=== PATIENT | male | born 1950 | race Caucasian/White ===

== ENCOUNTER 2016-11-03 13:33 | Inpatient (IN) | payer MEDICARE ==
[2016-11-03] MEDS ORDERED: NITROGLYCERIN SL TABS 0.4 MG TAB SUBLINGUAL STA (14:00)
--- NOTE | 2016-11-03 14:05 | ED ---
General Adult HPI - General Chief complaint: Chest Pain Stated complaint: Chest Pain Time Seen by Provider: 11/03/16 13:46 Source: patient, RN notes reviewed, old records reviewed Mode of arrival: ambulatory Limitations: no limitations - History of Present Illness Initial comments: Chief complaint and history of present illness a 66-year-old male who was sent here from the business continuity analyst's office. Patient reports for the past month he isn' t having shortness of breath and chest discomfort with exertion. Patient's last stent was placed July of last year. Denies any sweats. - Related Data Home Medications Medication Instructions Recorded Confirmed Insulin Aspart [NovoLOG] See Protocol SQ AC-TID 02/24/14 08/12/16 Omeprazole 20 mg PO DAILY 01/16/16 08/11/16 Insulin Glargine [Lantus] 90 unit SQ HS 01/17/16 08/12/16 Doxazosin Mesylate [Cardura] 8 mg PO BID 11/03/16 11/03/16 Previous Rx's Medication Instructions Recorded Aspirin EC [Ecotrin Low Dose] 81 mg PO DAILY #30 tablet. 01/18/16 Atorvastatin [Lipitor] 80 mg PO DAILY #30 tab 01/18/16 Clopidogrel [Plavix] 75 mg PO DAILY #90 tab 03/21/16 metFORMIN HCL [Glucophage] 500 mg PO BID #0 06/10/16 Allergies Allergy/AdvReac Type Severity Reaction Status Date / Time No Known Allergies Allergy Verified 11/03/16 14:21 Review of Systems ROS Statement: Those systems with pertinent positive or pertinent negative responses have been documented in the HPI. Review of systems. No headache or visual acuity changes. No stiff neck no neck pain at this time. He has chronic chest pressure with even mild exertion as well as shortness of breath. Radiation across the chest but not down the arms and the back. No GI/ problems or complications no complaint of any neuro deficits. All systems were otherwise reviewed. Past medical problems significant for melanoma on his face removed approximately one month ago. Also angina, COPD, insulin-dependent diabetes mellitus, GERD, hyperlipidemia, hypertension, OA, BPH, previous syncopal episodes. Psoas was stomach ulcers. Surgeries include cervical and low back. Cholecystectomy, heart catheterization with 3 stents. The patient's ALLERGIES none. Quit smoking 25 years ago drinks alcohol rarely socially. ROS Other: All systems not noted in ROS Statement are negative. Past Medical History Past Medical History: Coronary Artery Disease (CAD), Cancer, Chest Pain / Angina , COPD, Diabetes Mellitus, GERD/Reflux, Hyperlipidemia, Hypertension, Osteoarthritis (OA), Prostate Disorder, Syncope Additional Past Medical History / Comment(s): BPH, STOMACH ULCER, CHRONS, CHRONIC BACK PAIN, CANCER-SKIN- MELANOMA, numbness/tingling bilateral hands and legs at times, seasonal sinus problems, migraines History of Any Multi-Drug Resistant Organisms: None Reported Past Surgical History: Back Surgery, Cholecystectomy, Heart Catheterization, Heart Catheterization With Stent, Orthopedic Surgery Additional Past Surgical History / Comment(s): 08/12/16 PTCA with stent to proximal RCA. Other surgical hx: 03/20/16 PTCA with stent LCX, 2010 cardiac cath tx medically, back surgery x6 with metal rods; cervical surgery with metal plate, COLONOSCOPY, EGD, melanoma removals Past Anesthesia/Blood Transfusion Reactions: No Reported Reaction Date of Last Stent Placement:: 03/20/16 Past Psychological History: No Psychological Hx Reported Additional Psychological History / Comment(s): Pt resides with his spouse. He is independent. Smoking Status: Former smoker Past Alcohol Use History: Occasional Additional Past Alcohol Use History / Comment(s): 2-3 BEERS MONTHLY. Pt started smoking at age 14-15 yrs and got up to being a 2 ppd smoker. He quit smoking in 1990 Past Drug Use History: None Reported - Past Family History Father Family Medical History: Cancer, Myocardial Infarction ([place]) Additional Family Medical History / Comment(s): LEUKEMIA- of at the age of 32 yrs. Mother Family Medical History: Cancer Additional Family Medical History / Comment(s): BREAST CA,LiVER CA BRAIN CA, DEMENTIA. She in her 70's. General Exam - General Exam Comments Initial Comments: General: The patient is awake and alert, complains of one month long period of shortness of breath and chest heaviness with exertion. Vital signs show temperature 98.0 pulse 93 respiratory rate 26 pulse ox 97% room air blood pressure 176/77. Eye: Pupils are equal, round and reactive to light, extra-ocular movements are intact ; there is normal conjunctiva bilaterally. No signs of icterus. Ears, nose, mouth and throat: There are moist mucous membranes and no oral lesions. Healing scar below the left eye, recent removal of melanoma. Neck: The neck is supple, there is no tenderness . Cardiovascular: There is a regular rate and rhythm. No murmur, rub or gallop is appreciated. Respiratory: Lungs are clear to auscultation, respirations are non-labored, breath sounds are equal. No wheezes, stridor, rales, or rhonchi. Patient complains of shortness of breath with mild exertion. Gastrointestinal: Soft, non-distended, non-tender abdomen without masses or organomegaly noted. There is no rebound or guarding present. No CVA tenderness. Bowel sounds are unremarkable. Back: There is no tenderness to palpation in the midline. There is no obvious deformity. No rashes noted. Well-healed surgical scars were patient had low back surgery. Musculoskeletal: Normal ROM, no tenderness, There is no pedal edema. There is no calf tenderness or swelling. Sensation intact. Pulses equal bilaterally 2+. Neurological: No neuro deficits. Patient alert and oriented. Skin: Skin is warm and dry and no rashes or lesions are noted. Limitations: no limitations Course Vital Signs 11/03/16 11/03/16 11/03/16 13:35 14:11 14:17 Temperature 98.0 F Pulse Rate 93 81 92 Respiratory 26 H 24 Rate Blood Pressure 176/77 162/83 129/68 O2 Sat by Pulse 97 99 98 Oximetry Medical Decision Making - Medical Decision Making Medical decision-making the patient's white count 6.7 hemoglobin 13.8 hematocrit of 42, INR 1.0, potassium 4.6, BUN 14 creatinine 0.9 and GFR greater than 60. Glucose 197. D-dimer 0.55, BNP only 192, CK 289 troponin less than 0.012 with an MB fraction 5.8. Chest x-ray was done and reviewed by radiologist his impression is the lungs are clear. Pleural spaces are clear. Heart size upper limits of normal. Note made of an azygous lobe and fissure. Impression; borderline cardiomegaly. As read by Dr. Ryder Case discussed with Dr. Torres ,patient will be admitted to his service with consultation from cardiology. - Lab Data Result diagrams: 11/03/16 13:50 11/03/16 13:50 Lab Results 11/03/16 11/03/16 11/03/16 Range/Units 13:50 13:50 13:50 WBC 6.7 (3.8-10.6) k/uL RBC 5.11 (4.30-5.90) m/uL Hgb 13.8 (13.0-17.5) gm/dL Hct 42.5 (39.0-53.0) % MCV 83.1 (80.0-100.0) fL MCH 27.0 (25.0-35.0) pg MCHC 32.5 (31.0-37.0) g/dL RDW 13.7 (11.5-15.5) % Plt Count 242 (150-450) k/uL Neutrophils % 61 % Lymphocytes % 28 % Monocytes % 5 % Eosinophils % 3 % Basophils % 1 % Neutrophils # 4.1 (1.3-7.7) k/uL Lymphocytes # 1.9 (1.0-4.8) k/uL Monocytes # 0.4 (0-1.0) k/uL Eosinophils # 0.2 (0-0.7) k/uL Basophils # 0.0 (0-0.2) k/uL PT (9.0-12.0) sec INR (<1.1) APTT (22.0-30.0) sec D-Dimer (<0.60) mg/L FEU Sodium 138 (137-145) mmol/L Potassium 4.6 (3.5-5.1) mmol/L Chloride 103 (98-107) mmol/L Carbon Dioxide 21 L (22-30) mmol/L Anion Gap 14 mmol/L BUN 14 (9-20) mg/dL Creatinine 0.99 (0.66-1.25) mg/dL Est GFR (MDRD) Af Amer >60 (>60 ml/min/1.73 sqM) Est GFR (MDRD) Non-Af >60 (>60 ml/min/1.73 sqM) Glucose 197 H (74-99) mg/dL POC Glucose (mg/dL) (75-99) mg/dL POC Glu Manufacturing Finance Manager ID Calcium 9.8 (8.4-10.2) mg/dL Magnesium 1.6 (1.6-2.3) mg/dL Total Bilirubin 0.6 (0.2-1.3) mg/dL AST 28 (17-59) U/L ALT 44 (21-72) U/L Alkaline Phosphatase 44 (38-126) U/L Total Creatine Kinase 289 H (55-170) U/L CK-MB (CK-2) 5.8 H* (0.0-2.4) ng/mL CK-MB (CK-2) Rel Index 2.0 Troponin I <0.012 (0.000-0.034) ng/mL NT-Pro-B Natriuret Pep pg/mL Total Protein 7.3 (6.3-8.2) g/dL Albumin 4.3 (3.5-5.0) g/dL 11/03/16 11/03/16 11/03/16 Range/Units 13:50 13:50 14:49 WBC (3.8-10.6) k/uL RBC (4.30-5.90) m/uL Hgb (13.0-17.5) gm/dL Hct (39.0-53.0) % MCV (80.0-100.0) fL MCH (25.0-35.0) pg MCHC (31.0-37.0) g/dL RDW (11.5-15.5) % Plt Count (150-450) k/uL Neutrophils % % Lymphocytes % % Monocytes % % Eosinophils % % Basophils % % Neutrophils # (1.3-7.7) k/uL Lymphocytes # (1.0-4.8) k/uL Monocytes # (0-1.0) k/uL Eosinophils # (0-0.7) k/uL Basophils # (0-0.2) k/uL PT 10.4 (9.0-12.0) sec INR 1.0 (<1.1) APTT 24.0 (22.0-30.0) sec D-Dimer 0.55 (<0.60) mg/L FEU Sodium (137-145) mmol/L Potassium (3.5-5.1) mmol/L Chloride (98-107) mmol/L Carbon Dioxide (22-30) mmol/L Anion Gap mmol/L BUN (9-20) mg/dL Creatinine (0.66-1.25) mg/dL Est GFR (MDRD) Af Amer (>60 ml/min/1.73 sqM) Est GFR (MDRD) Non-Af (>60 ml/min/1.73 sqM) Glucose (74-99) mg/dL POC Glucose (mg/dL) 156 H (75-99) mg/dL POC Glu Manufacturing Finance Manager ID Calcium (8.4-10.2) mg/dL Magnesium (1.6-2.3) mg/dL Total Bilirubin (0.2-1.3) mg/dL AST (17-59) U/L ALT (21-72) U/L Alkaline Phosphatase (38-126) U/L Total Creatine Kinase (55-170) U/L CK-MB (CK-2) (0.0-2.4) ng/mL CK-MB (CK-2) Rel Index Troponin I (0.000-0.034) ng/mL NT-Pro-B Natriuret Pep 192 pg/mL Total Protein (6.3-8.2) g/dL Albumin (3.5-5.0) g/dL Disposition Clinical Impression: Unstable angina Disposition: ADMITTED IP TO THIS HOSP Condition: Serious
[2016-11-03 14:31] LABS: Basophils % (A) 1 %; CH 27.7; CHCM 33.5; Eosinophils # (A) 0.2 k/uL (0-0.7); Eosinophils % (A) 3 %; HCT 42.5 % (39.0-53.0); HDW 2.44; HGB 13.8 gm/dL (13.0-17.5); Luc # (Auto) 0.18; Luc % (Auto) 3; Lymphocytes # (A) 1.9 k/uL (1.0-4.8); Lymphocytes % (A) 28 %; MCHC 32.5 g/dL (31.0-37.0); MCV 83.1 fL (80.0-100.0); Mean Platelet Volume 7.1; Monocytes # (A) 0.4 k/uL (0-1.0); Monocytes % (A) 5 %; Neutrophils # (A) 4.1 k/uL (1.3-7.7); Neutrophils % (A) 61 %; RBC 5.11 m/uL (4.30-5.90); RDW 13.7 % (11.5-15.5); WBC 6.7 k/uL (3.8-10.6); WBC (Perox) 6.77
[2016-11-03 14:33] LABS: ALT 44 U/L (21-72); AST 28 U/L (17-59); Alkaline Phosphatase 44 U/L (38-126); Anion Gap 14 mmol/L; Blood Urea Nitrogen 14 mg/dL (9-20); Calcium 9.8 mg/dL (8.4-10.2); Carbon Dioxide 21 mmol/L (22-30); Chloride 103 mmol/L (98-107); Glucose 197 mg/dL (74-99); Magnesium 1.6 mg/dL (1.6-2.3); Non-African American GFR(MDRD) >60 (>60 ml/min/1.73 sqM); Potassium 4.6 mmol/L (3.5-5.1); Sodium 138 mmol/L (137-145); Total Bilirubin 0.6 mg/dL (0.2-1.3); Total Protein 7.3 g/dL (6.3-8.2)
[2016-11-03 14:39] LABS: Prothrombin Time 10.4 sec (9.0-12.0)
[2016-11-03 14:42] LABS: Creatine Kinase 289 U/L (55-170)
--- NOTE | 2016-11-03 14:43 | XR ---
EXAMINATION TYPE: XR chest 2V DATE OF EXAM: 11/03/2016 2:39 PM HISTORY: Chest pain and shortness of breath. REFERENCE: Previous study dated 01/17/2016. FINDINGS: The lungs are clear. Pleural spaces are clear. Heart size is upper limits of normal. Note i s made of an azygos lobe and fissure. IMPRESSION: BORDERLINE CARDIOMEGALY.
[2016-11-03 14:53] LABS: Glucose,Whole Blood 156 mg/dL (75-99)
[2016-11-03 14:54] LABS: Troponin I <0.012 ng/mL (0.000-0.034)
[2016-11-03 15:00] LABS: Creatine Kinase MB 5.8 ng/mL (0.0-2.4)
[2016-11-03] MEDS ORDERED: NALOXONE 0.4 MG/ML 1 ML VIAL IV PRN (15:06)
[2016-11-03] MEDS ORDERED: ACETAMINOPHEN TAB 325 MG TAB PO PRN (15:06)
[2016-11-03] MEDS ORDERED: HEPARIN SODIUM,PORCINE/D5W PMX 25,000 UNIT in DEXTROSE/WATER 1 500ML.BAG IV ONE (15:13)
[2016-11-03] MEDS ORDERED: SODIUM CHLORIDE 0.9% 1,000 ML IV SCH (15:15)
[2016-11-03] MEDS: SODIUM CHLORIDE 0.9% 1,000 ML IV SCH (15:31)
[2016-11-03] MEDS ORDERED: HEPARIN SODIUM,PORCINE/D5W PMX 25,000 UNIT in DEXTROSE/WATER 1 500ML.BAG IV SCH (15:45)
[2016-11-03] MEDS: HEPARIN SODIUM,PORCINE 5,000 UNIT/ML 1 ML VIAL IV STA ×2 (16:00→22:07)
[2016-11-03] MEDS: HEPARIN SODIUM,PORCINE/D5W PMX 25,000 UNIT in DEXTROSE/WATER 1 500ML.BAG IV SCH (16:02)
--- NOTE | 2016-11-03 16:41 | CONS ---
DATE OF CONSULTATION: CHIEF COMPLAINT: Shortness of breath and chest discomfort. Mr. Zuniga is a 65-year-old gentleman with history of known CAD, status post prior stenting of LAD, who comes to [facility] Emergency Room complaining of progressively worsening shortness of breath and episodes of chest pain over the last few weeks. Patient underwent cardiac catheterization and angioplasty of [place] right coronary artery in July of 2016. Prior to that he had an LAD stent. He complains of feeling progressively short of breath. Also has vague atypical chest pain. EKG does not reveal any changes. Troponin is negative. Hemoglobin is normal at 13.8. Past medical history is significant for: 1. CAD, status post multi-vessel angioplasty. 2. Hypertension. 3. Diabetes. 4. Dyslipidemia. Medications include: 1. Glucophage 500 b.i.d. 2. Omeprazole 20 b.i.d. 3. Insulin. 4. Cardura. 5. Plavix. 6. Lipitor. 7. Aspirin. ALLERGIES: NO KNOWN DRUG ALLERGIES. FAMILY HISTORY: Negative for premature coronary artery disease. SOCIAL HISTORY: Negative for current smoking, EtOH abuse or drug abuse. REVIEW OF SYSTEMS: HEENT: Unremarkable. CARDIAC: As described above. RESPIRATORY: As described above. GI: Negative. GENITOURINARY: Negative. MUSCULOSKELETAL: Negative. ENDOCRINE: Negative. DERMATOLOGY: Negative. CONSTITUTIONAL: Negative. PSYCHOSOCIAL: Negative. ONCOLOGICAL: Negative. Rest of the system review is not relevant. On exam, comfortable at rest. Vital signs are stable. There is jugular venous distention. Carotid upstroke is normal. There is no bruit. Chest exam reveals good air entry bilaterally. Heart exam reveals first and second heart sounds. No gallop. No murmur. No rub. Abdomen is soft, nontender. Examination of extremities did not reveal edema. Peripheral pulses are felt. FOOD TRAY ASSEMBLER exam did not reveal focal neurological deficits. Labs show that the D-dimer is normal. First set of troponin is negative. EKG is negative. ASSESSMENT: Unstable angina in a patient with known coronary artery disease, status post prior angioplasty. I reviewed his old records, talked to Dr. Santoyo. Patient states that he felt better following his previous angioplasty but again started feeling more and more short of breath. I am going to schedule him for a cardiac cath tomorrow, and if that looks okay, he can be discharged home and have outpatient followup through Dr. Santoyo. Patient had a D-dimer that is within normal limits.
[2016-11-03 17:43] LABS: Glucose,Whole Blood 138 mg/dL (75-99)
[2016-11-03] MEDS: INSULIN LISPRO (humaLOG) 300 UNIT/3 ML VIAL SQ SCH ×2 (17:45→21:39)
[2016-11-03] MEDS: FAMOTIDINE 20 MG TAB PO SCH (20:41)
[2016-11-03] MEDS: DOXAZOSIN 4 MG TAB PO SCH (20:41)
[2016-11-03 20:58] LABS: Creatine Kinase 240 U/L (55-170)
[2016-11-03 20:58] LABS: Glucose,Whole Blood 183 mg/dL (75-99)
[2016-11-03 21:11] LABS: Troponin I <0.012 ng/mL (0.000-0.034)
[2016-11-03 21:43] LABS: Creatine Kinase MB 5.3 ng/mL (0.0-2.4)
[2016-11-04 02:08] LABS: Creatine Kinase 222 U/L (55-170)
[2016-11-04 02:21] LABS: Troponin I <0.012 ng/mL (0.000-0.034)
[2016-11-04 02:25] LABS: Creatine Kinase MB 5.1 ng/mL (0.0-2.4)
[2016-11-04 06:17] LABS: Glucose,Whole Blood 169 mg/dL (75-99)
[2016-11-04] MEDS: INSULIN LISPRO (humaLOG) 300 UNIT/3 ML VIAL SQ SCH ×4 (06:41→21:51)
[2016-11-04] MEDS: DOXAZOSIN 4 MG TAB PO SCH ×2 (06:43→21:51)
[2016-11-04] MEDS: CLOPIDOGREL 75 MG TAB PO SCH (06:43)
[2016-11-04] MEDS: ASPIRIN 81 MG CHEW PO SCH ×2 (06:43→19:38)
[2016-11-04] MEDS: FAMOTIDINE 20 MG TAB PO SCH ×2 (06:43→21:51)
[2016-11-04] MEDS: ATORVASTATIN 80 MG TAB PO SCH (06:43)
[2016-11-04] MEDS ORDERED: ALPRAZolam 0.5 MG TAB PO PRN (07:53)
[2016-11-04] MEDS ORDERED: SODIUM CHLORIDE 0.9% 1,000 ML in EMPTY BAG 1 BAG IV ONE (07:53)
[2016-11-04] MEDS ORDERED: ALPRAZolam 0.25 MG TAB PO PRN (07:53)
[2016-11-04] MEDS ORDERED: NITROGLYCERIN SL TABS 0.4 MG TAB SUBLINGUAL PRN (07:53)
[2016-11-04] MEDS ORDERED: ATORVASTATIN 80 MG TAB PO STA (07:53)
[2016-11-04] MEDS ORDERED: ASPIRIN 325 MG TAB PO STA (07:53)
[2016-11-04 11:54] LABS: Glucose,Whole Blood 159 mg/dL (75-99)
[2016-11-04 12:43] LABS: Hemoglobin A1C 7.9 % (4.2-6.1)
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
[2016-11-04] MEDS: HEPARIN SODIUM,PORCINE/D5W PMX 25,000 UNIT in DEXTROSE/WATER 1 500ML.BAG IV SCH (16:08)
[2016-11-04 16:56] LABS: Glucose,Whole Blood 235 mg/dL (75-99)
[2016-11-04] MEDS ORDERED: LORATADINE 10 MG TAB PO PRN (19:56)
[2016-11-04 20:56] LABS: Glucose,Whole Blood 232 mg/dL (75-99)
[2016-11-04] MEDS ORDERED: OSELTAMIVIR 75 MG CAP PO SCH (21:00)
[2016-11-04] MEDS: SODIUM CHLORIDE 0.9% 1,000 ML IV SCH (21:51)
[2016-11-04 23:48] VITALS: RESP 16
[2016-11-05 05:56] LABS: Glucose,Whole Blood 223 mg/dL (75-99)
[2016-11-05 06:36] LABS: Basophils # (A) 0.1 k/uL (0-0.2); Basophils % (A) 1 %; CH 27.4; CHCM 32.3; Eosinophils # (A) 0.2 k/uL (0-0.7); Eosinophils % (A) 3 %; HCT 38.9 % (39.0-53.0); HDW 2.37; HGB 12.5 gm/dL (13.0-17.5); Luc # (Auto) 0.14; Luc % (Auto) 2; Lymphocytes # (A) 2.3 k/uL (1.0-4.8); Lymphocytes % (A) 39 %; MCH 27.3 pg (25.0-35.0); MCV 85.1 fL (80.0-100.0); Mean Platelet Volume 6.5; Monocytes # (A) 0.3 k/uL (0-1.0); Monocytes % (A) 6 %; Neutrophils # (A) 2.9 k/uL (1.3-7.7); Neutrophils % (A) 49 %; RBC 4.58 m/uL (4.30-5.90); RDW 13.7 % (11.5-15.5); WBC (Perox) 6.22
[2016-11-05] MEDS: INSULIN LISPRO (humaLOG) 300 UNIT/3 ML VIAL SQ SCH ×2 (06:44→12:41)
[2016-11-05] MEDS: CLOPIDOGREL 75 MG TAB PO SCH (06:45)
[2016-11-05] MEDS: DOXAZOSIN 4 MG TAB PO SCH (06:45)
[2016-11-05] MEDS: FAMOTIDINE 20 MG TAB PO SCH (06:45)
[2016-11-05] MEDS: ATORVASTATIN 80 MG TAB PO SCH (06:45)
[2016-11-05 07:05] LABS: Anion Gap 11 mmol/L; Blood Urea Nitrogen 16 mg/dL (9-20); Calcium 9.5 mg/dL (8.4-10.2); Carbon Dioxide 21 mmol/L (22-30); Chloride 107 mmol/L (98-107); Glucose 240 mg/dL (74-99); Non-African American GFR(MDRD) >60 (>60 ml/min/1.73 sqM); Potassium 4.5 mmol/L (3.5-5.1); Sodium 139 mmol/L (137-145)
[2016-11-05] MEDS ORDERED: SODIUM CHLORIDE 0.9% 1,000 ML IV ONE ×2 (07:59→10:53)
[2016-11-05] MEDS ORDERED: diphenhydrAMINE 50 MG/ML 1 ML VIAL IVP ONE (08:25)
[2016-11-05] MEDS ORDERED: MIDAZOLAM 2 MG/2 ML VIAL IVP ONE (08:25)
[2016-11-05] MEDS ORDERED: LIDOCAINE 2% INJ 20 MG/ML SQ ONE (08:25)
[2016-11-05] MEDS ORDERED: IOHEXOL 350 MG/ML 100 ML BOTTLE INJ ONE (08:58)
[2016-11-05] MEDS ORDERED: RX INFO: IV CONTRAST WAS GIVEN 1 EACH MISC MISCELLANE PRN (09:03)
[2016-11-05] MEDS ORDERED: SODIUM CHLORIDE 0.9% 1,000 ML IV SCH (09:15)
[2016-11-05 09:38] VITALS: TEMP 97
[2016-11-05] MEDS ORDERED: MIDAZOLAM 2 MG/2 ML VIAL ONE (10:36)
[2016-11-05] MEDS ORDERED: fentaNYL (PF) 50 MCG/ML 2 ML AMP ONE (10:36)
[2016-11-05] MEDS: BENZOCAINE SPRAY 100 APPLIC/CAN MUCOUS MEM ONE ×2 (10:53→10:57)
[2016-11-05 10:58] VITALS: BP 141/77; PULSE 77
[2016-11-05] MEDS ORDERED: MIDAZOLAM 2 MG/2 ML VIAL IV ONE (11:05)
[2016-11-05] MEDS ORDERED: fentaNYL (PF) 50 MCG/ML 2 ML AMP IV ONE ×2 (11:05)
[2016-11-05 11:40] LABS: Glucose,Whole Blood 187 mg/dL (75-99)
--- NOTE | 2016-11-05 12:00 | ECHOT ---
DATE OF SERVICE: 11/05/2016 PERFORMING PHYSICIAN: Oswald Singleton, Frame Trimmer. PROCEDURE PERFORMED: Transesophageal echocardiogram. INDICATION: This is a pleasant 66-year-old gentleman with has a known history of coronary artery disease and prior stenting of the RCA and LAD, continues to be symptomatic in terms of shortness of breath. He underwent a heart catheterization earlier today which showed patency of the two stents without any residual coronary artery disease to explain his symptoms. I decided to pursue with a YOKO to rule out any intracardiac shunts. SEDATION: Conscious sedation was performed using 2 mg of Versed and 50 mcg of fentanyl on divided doses. COMPLICATIONS: None. LEVEL OF SEDATION: Moderate. HAND STRAIGHTENER: Neel Santoyo MD, die sinking machine operator. PROCEDURE PERFORMED: Transesophageal echocardiogram. INDICATION: LEVEL OF SEDATION: Conscious sedation PROCEDURE DESCRIPTION: After obtaining an informed consent, explaining the procedure, benefits, risks, complications and alternatives, the patient was brought to the transesophageal echocardiogram suite. A pulse oximetry and heart rate monitors were attached to the patient prior to the procedure. The patient's throat was sprayed using lidocaine locally. Following that, the patient was turned into left lateral position. A bite guard was placed and the patient was then sedated with the above doses of Versed and fentanyl in divided doses. Following that, the transesophageal echocardiogram probe was advanced through the bite guard into the mid esophagus where 2-D echocardiogram images as well as color Doppler images of various cardiac structures were obtained. We evaluated the interatrial septum using 2-D echocardiogram, color Doppler, and contrast study. The procedure was completed. There were no complications. FINDINGS: The left ventricle appeared to be mildly dilated with an ejection fraction of 45% with global hypokinesia. The right ventricle seems to be mildly dilated as well. The left atrium appear to be mildly dilated. The interatrial septum appeared to have what seems to be secundum atrial septal defect with evidence of bidirectional shunt. The septum by itself seems to be hyperdynamic. The left atrial appendage appeared to be free from any thrombus. The aortic valve, trileaflet valve without stenosis or regurgitation. The mitral valve seems to be intact with trace physiologic MR. Normal tricuspid valve and pulmonic valve. CONCLUSION: 1. Hyperdynamic interatrial septum with evidence of secundum atrial septal defect and predominantly [id number]-nu-ynmxj shunt. 2. Normal left atrial appendage without any evidence of thrombus. 3. Mild biatrial enlargement. 4. Mildly impaired left ventricular function with an ejection fraction of 45%. 5. Mildly dilated right ventricle. 6. Overall normal intracardiac valves. 7. Normal aortic root dimension. 8. No evidence of pericardial effusion. POSTPROCEDURE MANAGEMENT: The patient will be scheduled to undergo percutaneous closure of the atrial septal defect. FINDINGS: FINAL IMPRESSION:
[2016-11-05] MEDS ORDERED: INSULIN LISPRO (humaLOG) 300 UNIT/3 ML VIAL SQ SCH (12:30)
--- NOTE | 2016-11-05 13:56 | P.DS ---
Providers Date of admission: 11/03/16 15:07 Expected date of discharge: 11/05/16 Attending physician: Lam Garcia Consults: 11/03/16 15:24 Consult Physician Routine Consulting Provider: Butch Purdy Consult Reason/Comments: Unstable angina Do you want consulting provider notified?: Yes Primary care physician: Lam Garcia [facility] Course: Patient is a 66-year-old white male, patient Dr. Garcia in the outpatient setting, we'll medical history significant for coronary artery disease with multiple stent placements, chronic systolic heart failure, cor pulmonale, COPD, obstructive sleep apnea, ascending aorta aneurysm measuring 5.1 cm on last computed tomography scan, type 2 diabetes mellitus, GERD, hypertension, BPH, Crohn's disease, gastric ulcer, dyslipidemia, osteoarthritis, melanoma, chronic back and neck pain, degenerative disc disease, and remote nicotine dependence. Patient presented to the emergency department with complaints of progressive shortness of breath and having more chest discomfort with exertion. Patient underwent a cardiac cath on 11/05/2016 which showed patency of the 2 stents without any residual coronary artery disease. Patient then underwent a transesophageal echocardiogram with evidence of atrial septal defect and predominantly left to right shunt without evidence of thrombus; mildly impaired left ventricular function with an EF of 45%. Patient was cleared for discharge from a cardiology standpoint and a medical standpoint. Plan is for patient to follow-up with cardiology in the outpatient setting for a percutaneous closure of the atrial septal defect. Patient was placed on Tamiflu prior to discharge secondary to his roommate in the hospital testing positive for influenza. Discharge diagnoses: 1. Atrial septal defect with predominantly krqs-fm-glven shunt, no evidence of thrombus. 2. Coronary artery disease with history of multivessel stent placements. 3. History of cor pulmonale secondary to obstructive sleep apnea. 4. Chronic systolic heart failure. 5. Ascending aortic aneurysm, measuring 5.1 cm on last computed tomography scan. 6. Diabetes mellitus, type II, insulin requiring, uncontrolled. Hemoglobin A1c 7.9. 7. GERD. 8. Hypertension. 9. Dyslipidemia. 10. Chronic back and leg pain suspect secondary to osteoarthritis and degenerative disc disease. 11. Benign prostatic hypertrophy. 12. History of nicotine dependence. The above impression and plan have been discussed and directed by Dr. Garcia. Mary Beth BAUTISTA acting as scribe for Dr. Garcia. Pertinent Studies: Chest x-ray; EKG Procedures: Heart catheterization; transesophageal echocardiogram Patient Condition at Discharge: Stable Plan - Discharge Summary New Discharge Prescriptions: Oseltamivir [Tamiflu] 75 mg PO HS #9 cap Discharge Medication List Insulin Aspart [NovoLOG] See Protocol SQ AC-TID 02/24/14 [History] Omeprazole 20 mg PO BID 01/16/16 [History] Insulin Glargine [Lantus] 95 unit SQ HS 01/17/16 [History] Aspirin EC [Ecotrin Low Dose] 81 mg PO DAILY #30 tablet. 01/18/16 [Rx] Atorvastatin [Lipitor] 80 mg PO DAILY #30 tab 01/18/16 [Rx] Clopidogrel [Plavix] 75 mg PO DAILY #90 tab 03/21/16 [Rx] Doxazosin Mesylate [Cardura] 8 mg PO BID 11/03/16 [History] Oseltamivir [Tamiflu] 75 mg PO HS #9 cap 11/05/16 [Rx] metFORMIN HCL [Glucophage] 500 mg PO BID #0 11/05/16 [Rx] Follow up Appointment(s)/Referral(s): Neel Santoyo MD [STAFF PHYSICIAN] - 11/07/16 Lam Garcia MD [Primary Care Provider] - 1-2 days Patient Instructions/Handouts: After Heart Catheterization - Unstacker, Atrial Septal Defect (DC) Discharge Disposition: HOME SELF-CARE
--- NOTE | 2016-11-05 18:09 | CC ---
DATE OF SERVICE: 11/05/2016 PERFORMING PHYSICIAN: Neel Santoyo M.D., docking saw operator. PROCEDURES PERFORMED: 1. Selective right and left coronary angiogram. 2. Left heart catheterization. 3. Left ventriculography. INDICATION: This is a pleasant 66-year-old gentleman who is known to have severe coronary artery disease where he underwent stenting of the RCA, left circumflex and LAD in the past. He presented to the hospital complaining of shortness of breath and symptoms consistent with unstable angina. He was seen and evaluated by Dr. Purdy, who recommended proceeding with heart catheterization. APPROACH: Right common femoral artery. COMPLICATIONS: None. LEVEL OF SEDATION: Moderate. PROCEDURE DESCRIPTION: After obtaining informed consent, the patient was brought to the cardiac general laborer. The right common femoral artery was cannulated using micropuncture technique under ultrasound guidance. The micropuncture wire passed easily, then I placed 6 Albanian sheath in the right common femoral artery. Subsequently I did selective right and left coronary angiogram using JR4 and JL4 catheters. After that I did left heart catheterization followed by left ventriculography. The procedure was completed without any complications. SELECTIVE CORONARY ANGIOGRAM 1. The right coronary artery is a moderate-caliber vessel and it is a dominant vessel. The proximal RCA appeared to have mild disease only. The mid RCA appeared to be stented, and the stent is patent. The RCA distally appeared to have mild disease only and bifurcates into PDA and PLV branches; both appeared to have mild diffuse disease only. 2. The left main is a large-caliber vessel. It is angiographically normal. It bifurcates into the left circumflex, ramus intermedius and left anterior descending artery. 3. Left circumflex is a large-caliber vessel and it is a non-dominant vessel. The left circumflex appeared to be angiographically normal. 4. The ramus intermedius is a large-caliber vessel. The mid ramus intermedius appeared to have a lesion in the range of 40% to 50% which seems to be unchanged compared to before. 5. Left anterior descending artery. The proximal LAD is stented and the stent appeared to be patent. The mid LAD appeared to be angiographically normal and gives rises to 2 diagonal branches. LAD distally appeared to be angiographically normal. HEMODYNAMICS: The left ventricular end-diastolic pressure appeared to be 16 to 20 mmHg, and no gradient was identified across the aortic valve. LEFT VENTRICULOGRAPHY: Left ventriculography was performed in the HOWE projection and using ( ) injection. The left ventricular systolic function seems to be mildly impaired with an ejection fraction between 45% and 50%. CONCLUSION: 1. Patent stents in the mid RCA and proximal left anterior descending artery. 2. Intermediate disease involving the ramus intermedius coronary artery which seems to be unchanged compared to before. 3. Mildly impaired LV function with an ejection fraction around 45% to 50%. Post-procedure management will be: 1. Maximize medical treatment. 2. Proceeding with a YOKO to rule out any cardiac shunts.
[2016-11-05] MEDS ORDERED: INSULIN GLARGINE 100 UNIT/ML 10 ML VIAL SQ SCH (21:00)
--- NOTE | 2016-11-05 21:48 | LTR ---
November 05, 2016 RE: Madi Zuniga Hillary Dear Lam, Mr. Madi Zuniga underwent heart catheterization earlier today that showed patent stents in both the RCA and the LAD without any severe residual coronary artery disease to explain the shortness of breath. In view of that, I decided to pursue a transesophageal echocardiogram. The patient underwent a YOKO which showed evidence of secondum atrial septal defect with bidirectional shunts and predominantly nwwl-uj-njdng shunt; that could explain why he is dyspneic. The patient from the cardiac standpoint can be discharged home. I am going to follow up with the patient later on this week in the office and schedule him to have percutaneous closure of the ASD next week. Thank you for allowing us to participate in his care. Please do not hesitate to call if you have any question or concern. Sincerely, DEBORAH MORALES MD
== END 2016-11-05 16:26 | disposition home or self-care (01) | DRG 287 ==
LOC: EC 13:33 → 6SEL 15:07
PROVIDERS: ADMIT Family Medicine; ATTEND Family Medicine
PROC: B2111ZZ Fluoroscopy of Multiple Coronary Arteries using Low Osmolar Contrast (ICD-10-PCS; 2016-11-05)
PROC: B2151ZZ Fluoroscopy of Left Heart using Low Osmolar Contrast (ICD-10-PCS; 2016-11-05)
PROC: B245ZZ4 Ultrasonography of Left Heart, Transesophageal (ICD-10-PCS; 2016-11-05)
PROC: 4A023N7 Measurement of Cardiac Sampling and Pressure, Left Heart, Percutaneous Approach (ICD-10-PCS; principal; 2016-11-05 08:00)
DX: Q21.1 Atrial septal defect (principal); I50.22 Chronic systolic (congestive) heart failure; K50.90 Crohn's disease, unspecified, without complications; I71.2 Thoracic aortic aneurysm, without rupture; I25.10 Atherosclerotic heart disease of native coronary artery without angina pectoris; E11.65 Type 2 diabetes mellitus with hyperglycemia; J44.9 Chronic obstructive pulmonary disease, unspecified; I10 Essential (primary) hypertension; E78.5 Hyperlipidemia, unspecified; G47.33 Obstructive sleep apnea (adult) (pediatric); G89.29 Other chronic pain; I44.0 Atrioventricular block, first degree; K21.9 Gastro-esophageal reflux disease without esophagitis; N40.0 Benign prostatic hyperplasia without lower urinary tract symptoms; G43.909 Migraine, unspecified, not intractable, without status migrainosus; M19.90 Unspecified osteoarthritis, unspecified site; M54.2 Cervicalgia; M54.9 Dorsalgia, unspecified; J45.909 Unspecified asthma, uncomplicated; Z79.02 Long term (current) use of antithrombotics/antiplatelets; Z79.4 Long term (current) use of insulin; Z79.82 Long term (current) use of aspirin; Z79.899 Other long term (current) drug therapy; Z85.820 Personal history of malignant melanoma of skin; Z95.5 Presence of coronary angioplasty implant and graft; Z82.49 Family history of ischemic heart disease and other diseases of the circulatory system
CPT/HCPCS: 36415; 71020; 80048; 80053; 82550; 82553; 83036; 83735; 83880; 84484; 85025; 85379; 85610; 85730; 93005; 93312; 93320; 93325; 93458; 94760; 96365; 96366; 96376; 99285

== ENCOUNTER 2016-11-17 10:20 | Day surgery (SDC) | payer MEDICARE ==
[2016-11-13 17:13] VITALS: BMI 31.1
[~2016-11-17 10:20] MED LIST: ALPRAZolam 0.25 MG TAB PO PRN; ASPIRIN 325 MG TAB PO STA; ceFAZolin 500 MG in DEXTROSE/WATER 1 50ML.BAG IVPB STA
[2016-11-17] MEDS ORDERED: ASPIRIN 81 MG CHEW ONE (10:32)
[2016-11-17] MEDS: SODIUM CHLORIDE 0.9% 1,000 ML IV SCH (10:35)
[2016-11-17 10:45] LABS: Glucose,Whole Blood 154 mg/dL (75-99)
[2016-11-17] MEDS: MIDAZOLAM 2 MG/2 ML VIAL IV ONE ×2 (10:54→11:09)
[2016-11-17] MEDS ORDERED: fentaNYL (PF) 50 MCG/ML 2 ML AMP IV ONE (11:27)
[2016-11-17] MEDS ORDERED: IOHEXOL 350 MG/ML 100 ML BOTTLE INJ ONE (12:10)
[2016-11-17] MEDS ORDERED: CLOPIDOGREL 75 MG TAB PO ONE (12:24)
[2016-11-17] MEDS ORDERED: SODIUM CHLORIDE 0.9% 1,000 ML IV SCH (12:30)
[2016-11-17 13:24] LABS: Glucose,Whole Blood 137 mg/dL (75-99)
[2016-11-17] MEDS ORDERED: ATROPINE SULFATE 0.1 MG/ML 10ML SYRINGE ONE (14:44)
[2016-11-17] MEDS ORDERED: diphenhydrAMINE 25 MG CAP PO PRN (15:28)
[2016-11-17 17:08] LABS: Glucose,Whole Blood 102 mg/dL (75-99)
[2016-11-17] MEDS: INSULIN LISPRO (humaLOG) 300 UNIT/3 ML VIAL SQ SCH ×2 (17:28→22:14)
[2016-11-17] MEDS: PANTOPRAZOLE 40 MG TABLET PO SCH (17:31)
[2016-11-17] MEDS ORDERED: ATORVASTATIN 80 MG TAB PO SCH (21:00)
[2016-11-17 21:09] VITALS: RESP 16
[2016-11-17] MEDS: DOXAZOSIN 4 MG TAB PO SCH (21:11)
[2016-11-17 21:55] LABS: Glucose,Whole Blood 268 mg/dL (75-99)
--- NOTE | 2016-11-17 23:07 | PTCA ---
DATE OF SERVICE: 11/17/2016 PERFORMING PHYSICIAN: Neel Santoyo M.D., radio announcer. PROCEDURES PERFORMED: 1. Intracardiac echocardiogram. 2. Successful percutaneous closure of secundum atrial septal defect as well as fenestrated septum using 35 mm cribriform Amplatzer device, with good results. 3. Right atrial angiogram. APPROACH: Right common femoral vein. COMPLICATIONS: None. LEVEL OF SEDATION: Moderate. Conscious sedation was performed with about one hour. PROCEDURE DESCRIPTION: After obtaining informed consent, the patient was brought to the cardiac labor operator. The right groin was prepped in the usual sterile fashion. Local analgesia was achieved by injecting 2% Xylocaine subcutaneously into the right groin. The right common femoral vein was cannulated x2 using micropuncture technique under ultrasound guidance. The micropuncture wire passed easily, then I placed ( ) 11 cm 8 [place] sheath in the right common femoral vein. At that point, anticoagulation was initiated using heparin. The patient was given a total of 10,000 units of heparin IV. After that I advanced the intracardiac echocardiogram probe through the 8 [place]an femoral vein to the right atrium, where we did ( ) images with full interrogation of the interatrial septum. After that, I crossed the atrial septal defect using an 0.35 J-wire with a multipurpose catheter. I tried multiple times advancing the wire to the left upper pulmonary vein, and I was unable, so I exchanged my wire for a stiffer wire, which was a More wire, and I left the wire in the left atrium. Subsequently I advanced a 9 [place]an delivery sheath over the More wire to the left atrium. Initially we deployed 25 mm septal Amplatzer device, but after I deployed the device there was still a residual flow across the interatrial septum. At that point I exchanged my device for a 35 mm cribriform device. The second device was deployed where initially I deployed the left atrial occluder, then the right atrial occluder. After that and before we released the device, I did interatrial septum interrogation where there was no residual flow, and the device was seated very well. There was no pinch on the SVC nor the aortic valve. The procedure was completed without any complication. After that I exchanged my 9 [place]an delivery system for an 8 [place] 11 cm sheath. Before I exchanged the delivery system, I did right a atrial angiogram. The procedure was completed without any complication. POST-PROCEDURE MANAGEMENT: 1. Echocardiogram today and tomorrow before discharge. 2. Dual antiplatelet therapy. 3. Followup with the patient.
--- NOTE | 2016-11-17 23:09 | LTR ---
November 17, 2016 RE: Efrain Madi Hillary Dear Lam, Mr. Madi Zuniga underwent successful percutaneous closure of secundum atrial septal defect, with good results and without any complication. Thank you for allowing me to participate in his care. Sincerely, DEBORAH MORALES MD
[2016-11-18] MEDS: SODIUM CHLORIDE 0.9% 1,000 ML IV SCH (02:23)
[2016-11-18 05:12] VITALS: PULSE 82
[2016-11-18 06:39] LABS: Basophils % (A) 1 %; CH 27.4; Eosinophils # (A) 0.2 k/uL (0-0.7); Eosinophils % (A) 5 %; HCT 39.6 % (39.0-53.0); HDW 2.43; HGB 12.5 gm/dL (13.0-17.5); Luc # (Auto) 0.12; Luc % (Auto) 2; Lymphocytes # (A) 1.3 k/uL (1.0-4.8); Lymphocytes % (A) 27 %; MCH 27.1 pg (25.0-35.0); MCHC 31.5 g/dL (31.0-37.0); MCV 86.1 fL (80.0-100.0); Mean Platelet Volume 6.6; Monocytes # (A) 0.4 k/uL (0-1.0); Monocytes % (A) 7 %; Neutrophils # (A) 2.9 k/uL (1.3-7.7); Neutrophils % (A) 59 %; RDW 13.7 % (11.5-15.5); WBC (Perox) 5.25
[2016-11-18 06:41] LABS: Glucose,Whole Blood 255 mg/dL (75-99)
[2016-11-18 06:45] LABS: Anion Gap 9 mmol/L; Blood Urea Nitrogen 16 mg/dL (9-20); Calcium 9.1 mg/dL (8.4-10.2); Carbon Dioxide 25 mmol/L (22-30); Chloride 104 mmol/L (98-107); Glucose 243 mg/dL (74-99); Non-African American GFR(MDRD) >60 (>60 ml/min/1.73 sqM); Potassium 4.6 mmol/L (3.5-5.1); Sodium 138 mmol/L (137-145)
[2016-11-18] MEDS: INSULIN LISPRO (humaLOG) 300 UNIT/3 ML VIAL SQ SCH (06:45)
[2016-11-18] MEDS: PANTOPRAZOLE 40 MG TABLET PO SCH (06:46)
--- NOTE | 2016-11-18 07:49 | XR ---
EXAMINATION TYPE: XR chest 2V DATE OF EXAM: 11/18/2016 6:27 AM COMPARISON: Prior chest x-ray 03 November 2016 HISTORY: Atrial septal defect occlusion device placement TECHNIQUE: Frontal and lateral views of the chest are obtained. FINDINGS: Device is noted superimposed over the atria. No other interval change is evident. IMPRESSION: No acute cardiopulmonary process.
[2016-11-18] MEDS: DOXAZOSIN 4 MG TAB PO SCH (08:34)
[2016-11-18 08:40] VITALS: BP 112/63; TEMP 97.8
[2016-11-18 08:51] LABS: Hemoglobin A1C 7.8 % (4.2-6.1)
[2016-11-18] MEDS ORDERED: CLOPIDOGREL 75 MG TAB PO SCH ×2 (09:00)
[2016-11-18] MEDS ORDERED: ASPIRIN 325 MG TAB PO SCH (09:00)
[2016-11-18] MEDS ORDERED: ASPIRIN 81 MG CHEW PO SCH (09:00)
--- NOTE | 2016-11-19 07:47 | DS ---
DATE OF ADMISSION: 11/17/2016 DATE OF DISCHARGE: 11/18/2016 BRIEF HISTORY: This is a pleasant, 66-year-old gentleman who was admitted to the hospital yesterday and underwent successful percutaneous closure of secundum atrial septal defect as well as fenestrated septum using 55 mm Amplatzer cribriform device with good results. I reviewed the echocardiogram from this morning, which showed that the device is in place without any residual shunt. The right groin is soft and nontender and without any bruises. The patient is going to be discharged home on dual antiplatelet therapy and I will follow up with the patient in the office.
--- NOTE | 2016-11-25 10:24 | ECHOF ---
Referral Reason:Post ASD/PFO Insertion MEASUREMENTS -------- HEIGHT: 182.9 cm WEIGHT: 103.9 kg BP: 108/62 RVIDd: 3.6 cm (< 3.3) IVSd: 1.4 cm (0.6 - 1.1) LVIDd: 4.7 cm (3.9 - 5.3) LVPWd: 1.4 cm (0.6 - 1.1) IVSs: 1.6 cm LVIDs: 3.2 cm LVPWs: 1.9 cm LA Diam: 3.6 cm (2.7 - 3.8) LAESV Index (A-L): 21.32 ml/m Ao Diam: 3.6 cm (2.0 - 3.7) AV Cusp: 2.5 cm (1.5 - 2.6) MV EXCURSION: 19.783 mm (> 18.000) MV EF SLOPE: 86 mm/s (70 - 150) EPSS: 0.9 cm MV E Ben: 0.63 m/s MV DecT: 205 ms MV A Ben: 0.60 m/s MV E/A Ratio: 1.05 FINDINGS -------- Sinus rhythm. This was a technically adequate study. The left ventricular size is normal. There is moderate concentric left ventricular hypertrophy. Overall left ventricular systolic function is normal with, an EF between 55 - 60 %. The right ventricle is mildly enlarged. Normal LA size by volume 22+/-6 ml/m2. The right atrium is normal in size. 1.5mg of Definity was utilized for enhancement of images There is an interatrial closure device in place without evidence of shunt. Aortic valve is trileaflet and is mildly thickened. Mild mitral annular calcification present. The tricuspid valve appears structurally normal. There is no pulmonic regurgitation present. The aortic root size is normal. IVC Not well visulized. There is no pericardial effusion. CONCLUSIONS -------- 1. Sinus rhythm. 2. There is an interatrial closure device in place without evidence of shunt. 3. Aortic valve is trileaflet and is mildly thickened. 4. Mild mitral annular calcification present. 5. The tricuspid valve appears structurally normal. 6. There is no pulmonic regurgitation present. 7. The aortic root size is normal. 8. IVC Not well visulized. 9. There is no pericardial effusion. 10. This was a technically adequate study. 11. The left ventricular size is normal. 12. There is moderate concentric left ventricular hypertrophy. 13. Overall left ventricular systolic function is normal with, an EF between 55 - 60 %. 14. The right ventricle is mildly enlarged. 15. Normal LA size by volume 22+/-6 ml/m2. 16. The right atrium is normal in size. 17. 1.5mg of Definity was utilized for enhancement of images STONEMASON SUPERVISOR: Rocio Cespedes RDCS
== END 2016-11-18 09:40 | disposition home or self-care (01) ==
LOC: CATHCVL 10:20 → 6SEL 12:17 → CATHCVL 11-18 09:40
PROVIDERS: ATTEND Internal Medicine Interventional Cardiology
DX: Q21.1 Atrial septal defect (principal); I25.10 Atherosclerotic heart disease of native coronary artery without angina pectoris; Z95.5 Presence of coronary angioplasty implant and graft; I10 Essential (primary) hypertension; E78.5 Hyperlipidemia, unspecified; J44.9 Chronic obstructive pulmonary disease, unspecified; E11.9 Type 2 diabetes mellitus without complications; Z82.49 Family history of ischemic heart disease and other diseases of the circulatory system; Z79.84 Long term (current) use of oral hypoglycemic drugs; Z79.02 Long term (current) use of antithrombotics/antiplatelets; Z79.82 Long term (current) use of aspirin; Z79.4 Long term (current) use of insulin; Z79.899 Other long term (current) drug therapy; Z87.891 Personal history of nicotine dependence
CPT/HCPCS: 93580; 93662; 85347; 86900; 86901; 80048; 83036; 85025; 86850; 71020; 99152; 99153; C8929; C1769 ×8; C1817; C1894; C1759; J2250; Q9967; J0690; J3010; Q9957; J1644; 93306

== ENCOUNTER → 2017-01-19 | Outpatient (CLI) | payer MEDICARE ==
[2017-01-19 13:25] LABS: Basophils # (A) 0.1 k/uL (0-0.2); Basophils % (A) 1 %; CH 27.4; CHCM 32.6; Eosinophils # (A) 0.3 k/uL (0-0.7); Eosinophils % (A) 4 %; HCT 41.6 % (39.0-53.0); HDW 2.34; HGB 13.7 gm/dL (13.0-17.5); Luc # (Auto) 0.14; Luc % (Auto) 2; Lymphocytes # (A) 2.1 k/uL (1.0-4.8); Lymphocytes % (A) 31 %; MCH 27.9 pg (25.0-35.0); MCV 84.5 fL (80.0-100.0); Mean Platelet Volume 6.7; Monocytes # (A) 0.4 k/uL (0-1.0); Monocytes % (A) 6 %; Neutrophils % (A) 58 %; RBC 4.92 m/uL (4.30-5.90); RDW 14.1 % (11.5-15.5); WBC 6.9 k/uL (3.8-10.6); WBC (Perox) 7.08
[2017-01-19 13:42] LABS: Anion Gap 9 mmol/L; Blood Urea Nitrogen 19 mg/dL (9-20); Calcium 9.6 mg/dL (8.4-10.2); Carbon Dioxide 24 mmol/L (22-30); Chloride 103 mmol/L (98-107); Glucose 240 mg/dL (74-99); Non-African American GFR(MDRD) >60 (>60 ml/min/1.73 sqM); Potassium 4.7 mmol/L (3.5-5.1); Sodium 136 mmol/L (137-145)
== END | disposition home or self-care (01) ==
LOC: LABWHC1 12:58
PROVIDERS: ATTEND Family Medicine
DX: R06.02 Shortness of breath (principal)
CPT/HCPCS: 36415; 80048; 85025

== ENCOUNTER 2017-03-11 16:39 | Emergency (ER) | payer MEDICARE ==
[2017-03-11] MEDS ORDERED: NITROGLYCERIN OINT 1 INCH/GM PACKET TOPICAL STA (17:03)
[2017-03-11] MEDS ORDERED: MECLIZINE 12.5 MG TAB PO STA (17:04)
[2017-03-11] MEDS ORDERED: METOCLOPRAMIDE 5 MG/ML 2 ML VIAL IVP STA (17:04)
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
[2017-03-11 17:49] LABS: Basophils # (A) 0.1 k/uL (0-0.2); Basophils % (A) 1 %; CH 27.9; CHCM 33.4; Eosinophils # (A) 0.2 k/uL (0-0.7); Eosinophils % (A) 3 %; HCT 41.3 % (39.0-53.0); HDW 2.31; HGB 13.4 gm/dL (13.0-17.5); Luc # (Auto) 0.11; Luc % (Auto) 2; Lymphocytes # (A) 1.8 k/uL (1.0-4.8); Lymphocytes % (A) 24 %; MCH 27.3 pg (25.0-35.0); MCHC 32.5 g/dL (31.0-37.0); MCV 83.9 fL (80.0-100.0); Mean Platelet Volume 6.9; Monocytes # (A) 0.3 k/uL (0-1.0); Monocytes % (A) 5 %; Neutrophils % (A) 66 %; RBC 4.93 m/uL (4.30-5.90); RDW 14.2 % (11.5-15.5); WBC 7.5 k/uL (3.8-10.6); WBC (Perox) 7.59
[2017-03-11 17:54] LABS: Partial Thromboplastin Time 23.8 sec (22.0-30.0); Prothrombin Time 10.3 sec (9.0-12.0)
[2017-03-11 18:03] LABS: Creatine Kinase 211 U/L (55-170)
--- NOTE | 2017-03-11 18:14 | CT ---
EXAMINATION TYPE: CT brain wo con DATE OF EXAM: 03/11/2017 COMPARISON: 07/03/2016 HISTORY: Patient complains of dizziness. CT DLP: 781.5 mGycm Automated exposure control for dose reduction was used. FINDINGS: There is mild cerebral cortical atrophy. There is no mass effect nor midline shift. There is no sign of intracranial hemorrhage. The calvarium is intact. IMPRESSION: MILD ATROPHY. NO ACUTE INTRACRANIAL ABNORMALITY. NO CHANGE.
[2017-03-11 18:16] LABS: Troponin I <0.012 ng/mL (0.000-0.034)
--- NOTE | 2017-03-11 18:23 | XR ---
EXAMINATION TYPE: XR chest 2V DATE OF EXAM: 03/11/2017 COMPARISON: 11/18/2016 HISTORY: Chest pain TECHNIQUE: Frontal and lateral views of the chest are obtained. FINDINGS: Heart is normal. Thoracic aorta is atheromatous. The lungs are clear of infiltrate. There are chest leads. There is no pleural effusion. There is a cardiac implant at the posterior right hear t chamber. Bony thorax is intact. There is no heart failure. IMPRESSION: No active cardiopulmonary disease. No change.
[2017-03-11 18:35] LABS: Creatine Kinase MB 4.5 ng/mL (0.0-2.4)
[2017-03-11 18:46] LABS: ALT 27 U/L (21-72); AST 23 U/L (17-59); Alkaline Phosphatase 41 U/L (38-126); Anion Gap 13 mmol/L; Blood Urea Nitrogen 17 mg/dL (9-20); Calcium 9.5 mg/dL (8.4-10.2); Carbon Dioxide 20 mmol/L (22-30); Chloride 102 mmol/L (98-107); Glucose 290 mg/dL (74-99); Magnesium 1.9 mg/dL (1.6-2.3); Non-African American GFR(MDRD) >60 (>60 ml/min/1.73 sqM); Potassium 4.4 mmol/L (3.5-5.1); Sodium 135 mmol/L (137-145); Total Bilirubin 0.7 mg/dL (0.2-1.3); Total Protein 6.9 g/dL (6.3-8.2)
[2017-03-11] MEDS ORDERED: SODIUM CHLORIDE 0.9% 500 ML IV ONE (19:01)
[2017-03-11 20:10] VITALS: PULSE 70
[2017-03-11 20:45] VITALS: BP 108/68; RESP 18; TEMP 0
== END 2017-03-11 20:46 | disposition home or self-care (01) ==
LOC: EC 16:39
DX: R42 Dizziness and giddiness (principal); R07.89 Other chest pain; R06.00 Dyspnea, unspecified; E11.9 Type 2 diabetes mellitus without complications; K21.9 Gastro-esophageal reflux disease without esophagitis; Z95.5 Presence of coronary angioplasty implant and graft; Z85.820 Personal history of malignant melanoma of skin; Z87.891 Personal history of nicotine dependence; Z79.84 Long term (current) use of oral hypoglycemic drugs; Z79.4 Long term (current) use of insulin; Z79.899 Other long term (current) drug therapy
CPT/HCPCS: 99285; 96374; 96361; 36415; 93005; 83880; 80053; 82550; 82553; 83735; 84484; 85025; 85610; 85730; 71020; 70450; J2765

== ENCOUNTER 2017-05-06 07:41 | Day surgery (SDC) | payer MEDICARE ==
[2017-05-04 17:03] VITALS: BMI 30.5
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
[~2017-05-06 07:41] MED LIST changes: -ALPRAZolam 0.25 MG TAB PO PRN; -ASPIRIN 325 MG TAB PO STA; +LACTATED RINGERS 1,000 ML IV SCH; +LIDOCAINE 1% 20 ML VIAL (10MG/ML) FOR IV START INTRADERMA PRN; -ceFAZolin 500 MG in DEXTROSE/WATER 1 50ML.BAG IVPB STA
[2017-05-06 08:05] VITALS: TEMP 98.7
[2017-05-06] MEDS ORDERED: LACTATED RINGERS 1,000 ML IV ONE (08:11)
[2017-05-06 08:14] LABS: Glucose,Whole Blood 273 mg/dL (75-99)
[2017-05-06] MEDS ORDERED: INSULIN LISPRO (humaLOG) 300 UNIT/3 ML VIAL SQ ONE (08:20)
[2017-05-06] MEDS ORDERED: fentaNYL (PF) 50 MCG/ML 2 ML AMP ONE (08:27)
[2017-05-06] MEDS ORDERED: MIDAZOLAM 2 MG/2 ML VIAL ONE (08:27)
[2017-05-06] MEDS ORDERED: PROPOFOL 10 MG/ML 20 ML VIAL IV ONE (08:27)
--- NOTE | 2017-05-06 09:06 | P.PCN ---
Date of Procedure: 05/06/17 Preoperative Diagnosis: Postoperative Diagnosis: Procedure(s) Performed: Implants: Indications for Procedure: Operative Findings: Description of Procedure: PREOPERATIVE DIAGNOSIS: Gastroesophageal reflux disease. History of coronary artery disease with cardiac stent. Chronic antiplatelet therapy. Epigastric abdominal pain. POSTOPERATIVE DIAGNOSIS: Gastroesophageal reflux disease. History of coronary artery disease with cardiac stent. Chronic antiplatelet therapy. Epigastric abdominal pain. Gastritis. OPERATION: Esophagogastroduodenoscopy. SURGEON: Nicci Rankin MD ANESTHESIA: MAC. INDICATIONS: The patient is a 66-year-old male who presents with a history of reflux disease. Benefits and risks of the procedure were described. Informed consent was obtained. DESCRIPTION: The patient was brought into the endoscopy suite and laid in the left lateral decubitus position. An Olympus gastroscope was passed along the posterior oropharynx down to the distal esophagus where the squamocolumnar junction was encountered at 45 cm from the incisors. The stomach was entered and no bile reflux was found. Additional findings are listed below. Biopsies were avoided with this history of chronic antiplatelet therapy. The first through third portion of the duodenum was examined and unremarkable. Retroflexion of the scope confirmed Hill grade 1 lower esophageal valve. The squamocolumnar junction demostrated LA grade B erosive esophagitis. The stomach was desufflated. The patient tolerated the procedure well. FINDINGS: Squamocolumnar junction 45 cm from the incisors. Diaphragmatic hiatus at 45 cm. Hill grade 1 lower esophageal valve. LA grade B erosive esophagitis. No active duodenitis. Chronic gastritis. RECOMMENDATIONS: Recommend medical therapy. Upper endoscopy as needed. Will benefit from antireflux surgical procedure
--- NOTE | 2017-05-06 09:11 | P.PCN ---
Date of Procedure: 05/06/17 Preoperative Diagnosis: Postoperative Diagnosis: Procedure(s) Performed: Implants: Indications for Procedure: Operative Findings: Description of Procedure: PREOPERATIVE DIAGNOSIS: Colonoscopy screening. History of ulcerative colitis, noncompliant to therapy. Coronary artery disease with cardiac stent. Chronic antiplatelet therapy. POSTOPERATIVE DIAGNOSIS: Colonoscopy screening. History of ulcerative colitis, noncompliant to therapy. Coronary artery disease with cardiac stent. Chronic antiplatelet therapy. Multiple inflammatory polyps. Multiple tubular adenomas. OPERATION: Colonoscopy to the ileocecal valve and appendiceal orifice. SURGEON: Nicci Rankin MD. ANESTHESIA: MAC. INDICATIONS: The patient is a 66-year-old male who presents for colonoscopy screening. He has personal history also colitis noncompliant to therapy & risk. This is his first colonoscopy in at least 5 years. Secondary to his chronic antiplatelet therapy, colonoscopy screening was performed. Benefits and risks were described and informed consent was obtained. DESCRIPTION OF PROCEDURE: The patient had undergone Gatorade, MiraLAX and Dulcolax prep. He had been brought into the operating room and laid in the left lateral decubitus position. After adequate intravenous sedation, the rectum was examined with 2% lidocaine jelly. An external hemorrhoids were encountered. The rectal tone was within normal limits. No lesions were palpated in the rectal vault. An Olympus colonoscope was advanced until the ileocecal valve and appendiceal orifice was viewed. The prep was fair with liquid stool requiring irrigation for clear visualization of the mucosal folds. The scope was removed with visualization of each mucosal fold. No scattered diverticulosis was encountered. Multiple inflammatory polyps including adenomas between 3-6 mm were found between 30 cm to 80 cm above the anal verge. Retroflexion of the scope demonstrated grade 1 internal hemorrhoids without active bleeding or inflammation. The colon was desufflated. The patient had tolerated the procedure well. Withdrawal time was over 6 minutes. FINDINGS: Internal hemorrhoids, grade 1 External prolapsed hemorrhoids, grade 2. No arteriovenous malformations. Multiple inflammatory polyps including adenomas between 3-6 mm were found between 30 cm to 80 cm above the anal verge. No scattered diverticulosis. RECOMMENDATIONS: Lower endoscopy in 1 year with multiple snare polypectomies needed at least 1 hour once he is off his antiplatelet therapy. Recommend compliance with treatment for ulcerative colitis. May potentially benefit from partial colectomy between 30-80 cm from the anal verge. Plan - Discharge Summary New Discharge Prescriptions: New Omeprazole 40 mg PO DAILY #30 capsule. No Action Insulin Aspart [NovoLOG] See Protocol SQ AC-TID Aspirin EC [Ecotrin Low Dose] 81 mg PO DAILY #30 tablet. Clopidogrel [Plavix] 75 mg PO DAILY #90 tab Spironolactone [Aldactone] 25 mg PO DAILY metFORMIN HCL [Metformin HCl] 500 mg PO BID Lisinopril [Zestril] 2.5 mg PO DAILY Insulin Detemir [Levemir] 90 - 95 unit SQ HS Discharge Medication List Insulin Aspart [NovoLOG] See Protocol SQ AC-TID 02/24/14 [History] Aspirin EC [Ecotrin Low Dose] 81 mg PO DAILY #30 tablet. 01/18/16 [Rx] Clopidogrel [Plavix] 75 mg PO DAILY #90 tab 03/21/16 [Rx] Insulin Detemir [Levemir] 90 - 95 unit SQ HS 03/11/17 [History] Lisinopril [Zestril] 2.5 mg PO DAILY 03/11/17 [History] Spironolactone [Aldactone] 25 mg PO DAILY 03/11/17 [History] metFORMIN HCL [Metformin HCl] 500 mg PO BID 03/11/17 [History] Omeprazole 40 mg PO DAILY #30 capsule. 05/06/17 [Rx] Follow up Appointment(s)/Referral(s): Nicci Rankin MD [STAFF PHYSICIAN] - 05/12/17 Patient Instructions/Handouts: Gastroesophageal Reflux Disease (GEN) Discharge Disposition: HOME SELF-CARE
[2017-05-06 09:12] LABS: Glucose,Whole Blood 254 mg/dL (75-99)
[2017-05-06 09:45] VITALS: BP 124/76; PULSE 72; RESP 18
== END 2017-05-06 09:44 | disposition home or self-care (01) ==
LOC: ORWHC2ENDO 07:41
PROVIDERS: ATTEND Surgery Plastic and Reconstructive Surgery
DX: K21.0 Gastro-esophageal reflux disease with esophagitis (principal); Z12.11 Encounter for screening for malignant neoplasm of colon; I25.10 Atherosclerotic heart disease of native coronary artery without angina pectoris; K29.70 Gastritis, unspecified, without bleeding; K64.0 First degree hemorrhoids; K64.4 Residual hemorrhoidal skin tags; Z79.4 Long term (current) use of insulin; Z91.19 Patient's noncompliance with other medical treatment and regimen; Z95.5 Presence of coronary angioplasty implant and graft; Z79.84 Long term (current) use of oral hypoglycemic drugs; Z79.899 Other long term (current) drug therapy; Z79.02 Long term (current) use of antithrombotics/antiplatelets; K51.40 Inflammatory polyps of colon without complications; K51.90 Ulcerative colitis, unspecified, without complications
CPT/HCPCS: 43235; J2250; J3010; J2704; G0121; 45378

== ENCOUNTER 2018-01-23 11:30 | Emergency (ER) | payer MEDICARE ==
[2018-01-23] MEDS ORDERED: ACETAMINOPHEN TAB 500 MG TAB PO STA (12:29)
[2018-01-23] MEDS ORDERED: cefTRIAXone IN SWFI 1,000 MG/10 ML SYRINGE IVP STA (12:29)
[2018-01-23] MEDS ORDERED: IBUPROFEN 600 MG TAB PO STA (12:29)
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
[2018-01-23] MEDS: SODIUM CHLORIDE 0.9% 500 ML IV SCH (12:48)
[2018-01-23 12:53] LABS: Basophils % (A) 1 %; Eosinophils # (A) 0.1 k/uL (0-0.7); Eosinophils % (A) 3 %; HCT 38.6 % (39.0-53.0); HGB 13.3 gm/dL (13.0-17.5); Lymphocytes # (A) 0.9 k/uL (1.0-4.8); Lymphocytes % (A) 30 %; MCH 27.5 pg (25.0-35.0); MCHC 34.3 g/dL (31.0-37.0); MCV 80.2 fL (80.0-100.0); Mean Platelet Volume 7.1; Monocytes # (A) 0.2 k/uL (0-1.0); Monocytes % (A) 6 %; Neutrophils # (A) 1.8 k/uL (1.3-7.7); Neutrophils % (A) 58 %; Platelet Count 162 k/uL (150-450); RBC 4.82 m/uL (4.30-5.90); RDW 13.7 % (11.5-15.5); WBC 3.1 k/uL (3.8-10.6)
[2018-01-23 12:59] LABS: Partial Thromboplastin Time 25.4 sec (22.0-30.0)
[2018-01-23 13:01] LABS: ALT 26 U/L (21-72); AST 29 U/L (17-59); Albumin 3.8 g/dL (3.5-5.0); Alkaline Phosphatase 32 U/L (38-126); Anion Gap 14 mmol/L; Blood Urea Nitrogen 17 mg/dL (9-20); Calcium 9.5 mg/dL (8.4-10.2); Carbon Dioxide 22 mmol/L (22-30); Chloride 99 mmol/L (98-107); Glucose 214 mg/dL (74-99); Potassium 4.7 mmol/L (3.5-5.1); Sodium 135 mmol/L (137-145); Total Bilirubin 0.4 mg/dL (0.2-1.3); Total Protein 6.4 g/dL (6.3-8.2)
[2018-01-23 13:09] LABS: Creatine Kinase 274 U/L (55-170)
[2018-01-23 13:22] LABS: Troponin I <0.012 ng/mL (0.000-0.034)
[2018-01-23 13:25] LABS: Creatine Kinase MB 3.9 ng/mL (0.0-2.4)
[2018-01-23 13:30] VITALS: BP 143/76; PULSE 81; RESP 18; TEMP 98.9
--- NOTE | 2018-01-23 13:56 | XR ---
EXAMINATION TYPE: XR chest 2V DATE OF EXAM: 01/23/2018 COMPARISON: 03/11/2017 HISTORY: Shortness of breath TECHNIQUE: Frontal and lateral views of the chest are obtained. FINDINGS: Scattered senescent parenchymal changes noted. Hyperinflation compatible with COPD. No evidence for infiltrate. No evidence for atelectasis. Heart size is stable. Mediastinal structures are stable and grossly unremarkable. No evidence for hilar prominence. Degenerative changes dorsal spine. IMPRESSION: 1. No evidence for acute pulmonary disease.
[2018-01-23 13:58] LABS: Appearance,Urine Clear (Clear); Bilirubin,Urine Negative (Negative); Blood,Urine Negative (Negative); Color,Urine Yellow; Glucose,Urine (UA) 4+ (Negative); Ketones,Urine Negative (Negative); Leukocyte Esterase,Urine Negative (Negative); Nitrite,Urine Negative (Negative); PH, Urine 5.5 (5.0-8.0); Protein,Urine Trace (Negative); Specific Gravity,Urine 1.012 (1.001-1.035); Urobilinogen,Urine <2.0 mg/dL (<2.0)
== END 2018-01-23 14:17 | disposition home or self-care (01) ==
LOC: EC 11:30
DX: J10.1 Influenza due to other identified influenza virus with other respiratory manifestations (principal); I25.10 Atherosclerotic heart disease of native coronary artery without angina pectoris; E11.9 Type 2 diabetes mellitus without complications; K21.9 Gastro-esophageal reflux disease without esophagitis; N42.9 Disorder of prostate, unspecified; Z85.820 Personal history of malignant melanoma of skin; Z87.891 Personal history of nicotine dependence; Z95.5 Presence of coronary angioplasty implant and graft; Z82.49 Family history of ischemic heart disease and other diseases of the circulatory system; Z79.4 Long term (current) use of insulin; Z79.899 Other long term (current) drug therapy
CPT/HCPCS: 36415; 93005; 80053; 82550; 82553; 83605; 84484; 85025; 85610; 85730; 81003; 87040; 87086; 87502; 71046; 99285; 96374; 96361; J0696

== ENCOUNTER → 2018-06-03 | Day surgery (SDC) | payer MEDICARE ==
[2018-05-31 10:11] VITALS: BMI 30.5
[~2018-06-03] MED LIST changes: +ALPRAZolam 0.25 MG TAB PO PRN; +ALPRAZolam 0.5 MG TAB PO PRN; +ASPIRIN 325 MG TAB PO STA; +ATORVASTATIN 80 MG TAB PO STA; +HEPARIN SODIUM 1,000 UN/ML (10ML VL) ONE; +INSULIN ASPART 100 UNIT/ML 1 ML 10 ML VIAL SQ SCH; +IOPAMIDOL-370 100ML BTL INJ ONE; +IOPAMIDOL-370 125ML BTL INJ ONE; -LACTATED RINGERS 1,000 ML IV SCH; -LIDOCAINE 1% 20 ML VIAL (10MG/ML) FOR IV START INTRADERMA PRN; +LIDOCAINE 1% INJ 10MG/ML (20 ML MDV) ONE; +LIDOCAINE 1% INJ 10MG/ML (20 ML MDV) SQ ONE; +MIDAZOLAM 2 MG/2 ML VIAL IV ONE; +MIDAZOLAM 2 MG/2 ML VIAL ONE; +NITROGLYCERIN SL TABS 0.4 MG TAB SUBLINGUAL PRN; +RX INFO: IV CONTRAST WAS GIVEN 1 EACH MISC MISCELLANE PRN; +SODIUM CHLORIDE 0.9% 1,000 ML IV SCH; +SODIUM CHLORIDE 0.9% 1,000 ML in EMPTY BAG 1 BAG IV ONE; +fentaNYL (PF) 50 MCG/ML 2 ML AMP IV ONE; +fentaNYL (PF) 50 MCG/ML 2 ML AMP ONE
[2018-06-03 06:45] VITALS: RESP 18
[2018-06-03 06:50] LABS: Glucose,Whole Blood 219 mg/dL (75-99)
--- NOTE | 2018-06-03 09:29 | LTR ---
June 03, 2018 Re: Madi Zuniga Dear Dr. Garcia: Mr. Madi Zuniga underwent a heart catheterization today and that revealed patent stents in the RCA, left circumflex, and LAD. He does have intermediate to severe lesion involving the ramus intermedius coronary artery and I advised medical treatment on this lesion at this point of time. I want to thank you again for allowing me to participate in his care and please do not hesitate to call if you have any question or concern. Sincerely, MD RAMO Singleton / LEWIS: [id number] /
--- NOTE | 2018-06-03 10:20 | CC ---
CARDIAC CATHETERIZATION REPORT DATE OF SERVICE: 06/03/2018 PERFORMING PHYSICIAN: Neel Santoyo MD, [place]. PROCEDURE PERFORMED: 1. Selective right and left coronary angiogram. 2. Left heart catheterization. 3. Left ventriculography. INDICATION: This is a pleasant 67-year-old gentleman with known history of coronary artery disease, as well as hypertension and dyslipidemia, was experiencing shortness of breath with exertion. He underwent myocardial perfusion imaging stress test and that revealed inferior ischemia. Because of that, heart catheterization was advised, giving his history of coronary artery disease as well as multiple coronary artery revascularization and multiple risk factors. APPROACH: Right common femoral artery. COMPLICATION: None. LEVEL OF SEDATION: Moderate with sedation length of 66 minutes. PROCEDURE DESCRIPTION: After obtaining an informed consent, the patient was brought to the cardiac laborer [facility]. The right common femoral artery was cannulated using micropuncture technique, the micropuncture wire passed easily, then I placed a 6-Polish sheath in the right common femoral artery. After that, I did selective right and left coronary angiogram was performed using using for the right a Saleem right posterior, and for the left, JL4 catheter. I did after that left heart catheterization and left ventriculography using 6-Polish pigtail catheter. The procedure was completed without any complication. SELECTIVE CORONARY ANGIOGRAM: 1. The right coronary artery is a medium caliber vessel and it is a dominant vessel. The proximal RCA appeared to be angiographically normal. The mid RCA is stented and the stent is patent. The RCA distally appeared to be angiographically normal and bifurcates into PDA and PLV branches, both are angiographically normal. 2. The left main is angiographically normal it bifurcates into the circumflex, ramus intermedius, and left anterior descending artery. 3. The left circumflex is a large caliber vessel and the proximal left circumflex appeared to be stented and the stent is patent. The mid left circumflex appeared to be angiographically normal and the circumflex distally appeared to be angiographically normal. 4. The ramus intermedius, the ostial of the ramus intermedius appeared to be diseased in the range of 60% to 70%. The disease reached the ostium of the office and reached the left main. 5. The LAD, the proximal LAD is stented and the stent is patent. The mid and distal LAD appeared to be angiographically normal. The LAD gives rise into multiple small diagonal branches and they appeared to be angiographically normal. HEMODYNAMICS: The left ventricular end-diastolic pressure was 12 mmHg and no gradient was identified across the aortic valve. Left ventriculography: The left ventriculography was performed in the HOWE projection and using a power injection. The left ventricular systolic function appeared to be impaired with EF around 40% with global hypokinesia. CONCLUSION: 1. Patent stents in the mid RCA, proximal left circumflex, and proximal LAD. 2. Intermediate to severe lesion involving the ramus intermedius of the left circumflex and the lesion appeared to be in the range of 60% to 70%. 3. Nonischemic cardiomyopathy with ejection fraction around 40%. POSTPROCEDURE MANAGEMENT: 1. I advised maximize medical treatment at this point of time. 2. Medical treatment for the lesion in the left circumflex. Stent the lesion if the patient continues to be symptomatic in spite of maximized medical treatment. 3. Optimize the treatment for cardiomyopathy and repeat the echocardiogram down the line. 4. Follow up with the patient. MMODL / IJN: [id number] /
[2018-06-03 11:30] VITALS: TEMP 98
[2018-06-03 13:56] VITALS: PULSE 74
[2018-06-03 13:57] VITALS: BP 147/77
== END ==
LOC: CATHCVL 06:11
PROVIDERS: ATTEND Internal Medicine Interventional Cardiology
DX: R07.9 Chest pain, unspecified (principal); I25.110 Atherosclerotic heart disease of native coronary artery with unstable angina pectoris; I10 Essential (primary) hypertension; F17.210 Nicotine dependence, cigarettes, uncomplicated; I42.8 Other cardiomyopathies; E78.5 Hyperlipidemia, unspecified; E11.9 Type 2 diabetes mellitus without complications; Z82.49 Family history of ischemic heart disease and other diseases of the circulatory system; J44.9 Chronic obstructive pulmonary disease, unspecified; Z79.82 Long term (current) use of aspirin; Z79.4 Long term (current) use of insulin; Z79.899 Other long term (current) drug therapy
CPT/HCPCS: 93458; C1894; C1769 ×2; C1760; J2250; J2001; J3010; Q9967 ×2

== ENCOUNTER 2018-07-12 15:46 | Observation (INO) | payer MEDICARE ==
[2018-07-12 16:11] LABS: Glucose,Whole Blood 202 mg/dL (75-99)
[2018-07-12] MEDS ORDERED: SODIUM CHLORIDE 0.9% 1,000 ML IV STA (16:22)
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
[2018-07-12 16:35] LABS: Basophils % (A) 0 %; Eosinophils # (A) 0.3 k/uL (0-0.7); Eosinophils % (A) 3 %; HCT 42.4 % (39.0-53.0); HGB 13.5 gm/dL (13.0-17.5); Lymphocytes # (A) 2.2 k/uL (1.0-4.8); Lymphocytes % (A) 28 %; MCH 26.8 pg (25.0-35.0); MCHC 31.9 g/dL (31.0-37.0); MCV 83.9 fL (80.0-100.0); Mean Platelet Volume 6.9; Monocytes # (A) 0.4 k/uL (0-1.0); Monocytes % (A) 4 %; Neutrophils # (A) 4.9 k/uL (1.3-7.7); Neutrophils % (A) 62 %; Platelet Count 235 k/uL (150-450); RBC 5.06 m/uL (4.30-5.90); RDW 14.1 % (11.5-15.5)
[2018-07-12 16:43] LABS: Albumin 4.4 g/dL (3.5-5.0); Calcium 10.3 mg/dL (8.4-10.2); Creatine Kinase 172 U/L (55-170); Magnesium 1.6 mg/dL (1.6-2.3); Potassium 4.7 mmol/L (3.5-5.1); Total Bilirubin 0.7 mg/dL (0.2-1.3); Total Protein 7.3 g/dL (6.3-8.2)
[2018-07-12 16:50] LABS: D-Dimer 0.53 mg/L FEU (<0.60); Partial Thromboplastin Time 23.4 sec (22.0-30.0); Prothrombin Time 10.1 sec (9.0-12.0)
[2018-07-12 16:57] LABS: Troponin I <0.012 ng/mL (0.000-0.034)
--- NOTE | 2018-07-12 17:43 | XR ---
EXAMINATION TYPE: XR chest 2V DATE OF EXAM: 07/12/2018 COMPARISON: 01/23/2018 HISTORY: Syncope TECHNIQUE: Frontal and lateral views of the chest are obtained. FINDINGS: Heart and mediastinum are normal. Lungs are clear. Diaphragm is normal. Bony thorax appear s normal. There are chest leads. IMPRESSION: Normal chest. No change.
--- NOTE | 2018-07-12 17:45 | CT ---
EXAMINATION TYPE: CT brain wo con DATE OF EXAM: 07/12/2018 COMPARISON: 06/13/2017 HISTORY: DIZZINESS/NEAR SYNCOPE CT DLP: 1339.4 mGycm Automated exposure control for dose reduction was used. FINDINGS: There is cerebral cortical atrophy. There is no mass effect nor midline shift. There is no sign of in tracranial hemorrhage. The calvarium is intact. IMPRESSION: CEREBRAL ATROPHY. NO ACUTE INTRACRANIAL ABNORMALITY. NO CHANGE.
[2018-07-12] MEDS ORDERED: SODIUM CHLORIDE 0.9% 500 ML 500 ML IV STA (18:51)
[2018-07-12 19:29] LABS: Appearance,Urine Clear (Clear); Bilirubin,Urine Negative (Negative); Blood,Urine Negative (Negative); Color,Urine Yellow; Glucose,Urine (UA) 2+ (Negative); Ketones,Urine Negative (Negative); Leukocyte Esterase,Urine Negative (Negative); Nitrite,Urine Negative (Negative); Protein,Urine Trace (Negative); Specific Gravity,Urine 1.015 (1.001-1.035)
[2018-07-12] MEDS ORDERED: NALOXONE 0.4 MG/ML 1 ML VIAL IV PRN (20:03)
[2018-07-12] MEDS ORDERED: INSULIN DETEMIR 100 UNIT/ML 10 ML VIAL SQ PRN (20:05)
[2018-07-12] MEDS ORDERED: INSULIN ASPART 100 UNIT/ML 1 ML 10 ML VIAL SQ PRN (20:05)
[2018-07-12] MEDS ORDERED: SODIUM CHLORIDE 0.9% 1,000 ML IV SCH (20:15)
[2018-07-12] MEDS ORDERED: DOXAZOSIN 4 MG TAB PO SCH (21:00)
[2018-07-12] MEDS ORDERED: NON-FORMULARY DRUG (Omeprazole [Omeprazole] 40 MG) PO SCH (21:00)
[2018-07-12 23:12] LABS: Glucose,Whole Blood 185 mg/dL (75-99)
[2018-07-12] MEDS: METOCLOPRAMIDE 10 MG TAB PO SCH (23:58)
[2018-07-13] MEDS ORDERED: INSULIN DETEMIR 100 UNIT/ML 10 ML VIAL SQ SCH
[2018-07-13 00:03] LABS: Glucose,Whole Blood 235 mg/dL (75-99)
[2018-07-13] MEDS: METOPROLOL TARTRATE 25 MG TAB PO SCH ×2 (00:15→12:03)
[2018-07-13] MEDS: metFORMIN 500 MG TAB PO SCH ×2 (00:15→12:01)
[2018-07-13] MEDS: INSULIN ASPART 100 UNIT/ML 1 ML 10 ML VIAL SQ SCH ×3 (00:16→12:51)
[2018-07-13 07:03] LABS: Glucose,Whole Blood 225 mg/dL (75-99)
[2018-07-13] MEDS ORDERED: PANTOPRAZOLE 40 MG TABLET PO SCH (07:30)
[2018-07-13 07:47] VITALS: RESP 16
[2018-07-13] MEDS ORDERED: DOXAZOSIN 4 MG TAB PO SCH (09:00)
[2018-07-13] MEDS ORDERED: LISINOPRIL 2.5 MG TAB PO SCH (09:00)
[2018-07-13] MEDS ORDERED: SPIRONOLACTONE 25 MG TAB PO SCH (09:00)
[2018-07-13] MEDS ORDERED: ASPIRIN 81 MG PO SCH (09:00)
[2018-07-13] MEDS ORDERED: ATORVASTATIN 40 MG TAB PO SCH (09:00)
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
[2018-07-13 11:39] VITALS: BP 155/76; PULSE 70; TEMP 97.9
[2018-07-13] MEDS: METOCLOPRAMIDE 10 MG TAB PO SCH (12:02)
[2018-07-13 12:23] LABS: Glucose,Whole Blood 211 mg/dL (75-99)
--- NOTE | 2018-07-13 13:29 | P.DS ---
Providers Date of admission: 07/12/18 20:56 Expected date of discharge: 07/13/18 Attending physician: Lam Garcia Consults: 07/12/18 20:04 Consult Physician Routine Consulting Provider: Neel Santoyo Consult Reason/Comments: Syncope Do you want consulting provider notified?: Yes Primary care physician: Lam [facility] Course: This document serves as history and physical and discharge summary 67 -year-old male who presents to emergency room after he was seen by his web site specialist yesterday. The patient states when he woke up yesterday he began feeling dizzy and lightheaded. He called his web site specialist, Dr. Villalpando, was able to get an appointment at his office yesterday. The patient apparently had a few episodes at Dr. Cazares office of feeling extremely dizzy and lightheaded. He did not actually pass out or lose consciousness. The patient was brought to the emergency room for further evaluation. The patient arrived to the emergency room he was hypotensive with a blood pressure in the 80s/50s. He was given a liter bolus and his blood pressure did improve. He recently underwent cardiac catherization in May 2018 which revealed patent stents in the mid RCA, proximal circumflex and proximal LAD with intermediate severe disease involving the ramus proximally 60-70% at the ostium. EF was around 35-40% with global hypokinesia. Chest x-ray was completed in the emergency room which was negative for an acute process. EKG revealed sinus rhythm with no ST abnormalities. CBC was within normal limits. D-dimer 0.53. Sodium 136. Potassium 4.7. BUN 20. Creatinine 1.10. Glucose 209. Troponin negative 2. The patient was admitted to the observation unit and consultations were placed to cardiology for further evaluation. Case was discussed with cardiology who has concerns regarding the patient's high dose of Cardura for his BPH. Cardiology decreased the dose of the patient's Cardura and recommends that the patient follow up with his urologist as soon as possible to be evaluated for possible prostatectomy, which would eliminate the need for the patient's Cardura and allow cardiology more room to maximize his medication regimen as his cardiac medications are at low doses (which have been unable to be increased due to his hypotension due to his Cardura). The patient is agreeable to this plan. The patient states he will call Dr. Nunez office today to schedule an appointment this week for discussion. DISCHARGE DIAGNOSIS: Dizziness with hypotension, suspect secondary to medications, improved Non-ischemic cardiomyopathy, global hypokinesia EF 40% on catheterization History of coronary artery disease s/p multiple angioplasties. Patent stents to mid RCA, proximal circumflex and proximal LAD noted. History of hypertension Hyperlipidemia Benign prostatic hyperplasia Diabetes mellitus, type II GERD Nurse practitioner note has been reviewed by physician. Signing provider agrees with the documented findings, assessment, and plan of care. Patient Condition at Discharge: Stable Plan - Discharge Summary Discharge Rx Participant: No New Discharge Prescriptions: New Doxazosin [Cardura] 4 mg PO BID #60 tab Continue metFORMIN HCL [Metformin HCl] 500 mg PO BID Insulin Detemir [Levemir] 90 - 95 unit SQ HS PRN PRN Reason: Blood Sugar - High Omeprazole 40 mg PO HS Metoclopramide [Reglan] 10 mg PO TID Insulin Aspart [NovoLOG (formulary)] 25 - 30 unit SQ AC-TID PRN PRN Reason: Blood Sugar - High Aspirin [Adult Low Dose Aspirin EC] 81 mg PO QAM Atorvastatin [Lipitor] 40 mg PO DAILY Spironolactone [Aldactone] 25 mg PO DAILY Metoprolol Tartrate [Lopressor] 12.5 mg PO BID Lisinopril [Zestril] 2.5 mg PO DAILY Discontinued Doxazosin Mesylate 8 mg PO BID Discharge Medication List Insulin Detemir [Levemir] 90 - 95 unit SQ HS PRN 03/11/17 [History] metFORMIN HCL [Metformin HCl] 500 mg PO BID 03/11/17 [History] Insulin Aspart [NovoLOG (formulary)] 25 - 30 unit SQ AC-TID PRN 07/20/17 [ History] Metoclopramide [Reglan] 10 mg PO TID 07/20/17 [History] Omeprazole 40 mg PO HS 07/20/17 [History] Aspirin [Adult Low Dose Aspirin EC] 81 mg PO QAM 05/31/18 [History] Atorvastatin [Lipitor] 40 mg PO DAILY 05/31/18 [History] Lisinopril [Zestril] 2.5 mg PO DAILY 07/12/18 [History] Metoprolol Tartrate [Lopressor] 12.5 mg PO BID 07/12/18 [History] Spironolactone [Aldactone] 25 mg PO DAILY 07/12/18 [History] Doxazosin [Cardura] 4 mg PO BID #60 tab 07/13/18 [Rx] Follow up Appointment(s)/Referral(s): Neel Santoyo MD [STAFF PHYSICIAN] - 07/20/18 (appointment time at 2:00pm) Mian Phoenix MD [STAFF PHYSICIAN] - 1-2 Days (Patient requesting to make own appointment date and time) Lam Garcia MD [Primary Care Provider] - 07/20/18 2:30 pm Patient Instructions/Handouts: Chest Pain (DC), Syncope (DC) Discharge Disposition: HOME SELF-CARE
== END 2018-07-13 13:07 | disposition home or self-care (01) ==
LOC: EC 15:46 → 1SOBS 20:56
PROVIDERS: ADMIT Family Medicine; ATTEND Family Medicine
DX: I95.9 Hypotension, unspecified (principal); E11.65 Type 2 diabetes mellitus with hyperglycemia; N40.0 Benign prostatic hyperplasia without lower urinary tract symptoms; I11.9 Hypertensive heart disease without heart failure; I43 Cardiomyopathy in diseases classified elsewhere; K21.9 Gastro-esophageal reflux disease without esophagitis; I25.10 Atherosclerotic heart disease of native coronary artery without angina pectoris; M19.90 Unspecified osteoarthritis, unspecified site; H91.92 Unspecified hearing loss, left ear; K50.90 Crohn's disease, unspecified, without complications; I71.4 Abdominal aortic aneurysm, without rupture; E78.5 Hyperlipidemia, unspecified; Z79.4 Long term (current) use of insulin; Z79.82 Long term (current) use of aspirin; Z79.899 Other long term (current) drug therapy; Z85.820 Personal history of malignant melanoma of skin; Z87.891 Personal history of nicotine dependence; Z95.5 Presence of coronary angioplasty implant and graft; Z87.74 Personal history of (corrected) congenital malformations of heart and circulatory system; Z90.49 Acquired absence of other specified parts of digestive tract; Z80.6 Family history of leukemia
CPT/HCPCS: 96360; 99291; 36415; 93005; 85379; 83880; 80053; 82550; 82553; 83735; 84484 ×2; 85025; 85610; 85730; 81003; 71046; 70450; G0378 ×2

== ENCOUNTER → 2018-08-11 | Outpatient (CLI) | payer MEDICARE ==
[2018-08-11 13:46] LABS: Basophils % (A) 0 %; Eosinophils # (A) 0.2 k/uL (0-0.7); Eosinophils % (A) 3 %; HCT 42.6 % (39.0-53.0); HGB 14.1 gm/dL (13.0-17.5); Lymphocytes # (A) 1.8 k/uL (1.0-4.8); Lymphocytes % (A) 27 %; MCH 28.2 pg (25.0-35.0); MCV 85.4 fL (80.0-100.0); Mean Platelet Volume 7.5; Monocytes # (A) 0.4 k/uL (0-1.0); Monocytes % (A) 6 %; Neutrophils # (A) 4.2 k/uL (1.3-7.7); Neutrophils % (A) 62 %; Platelet Count 205 k/uL (150-450); RBC 4.99 m/uL (4.30-5.90); RDW 14.1 % (11.5-15.5); WBC 6.7 k/uL (3.8-10.6)
[2018-08-11 14:19] LABS: Calcium 10.8 mg/dL (8.4-10.2); Potassium 4.8 mmol/L (3.5-5.1)
== END | disposition home or self-care (01) ==
LOC: LABPAT 11:19
PROVIDERS: ATTEND Urology
DX: Z01.818 Encounter for other preprocedural examination (principal); Z01.812 Encounter for preprocedural laboratory examination; R53.83 Other fatigue; N40.1 Benign prostatic hyperplasia with lower urinary tract symptoms; E11.9 Type 2 diabetes mellitus without complications; Z79.4 Long term (current) use of insulin
CPT/HCPCS: 36415; 80048; 85025; 93005

== ENCOUNTER → 2018-08-20 | Day surgery (SDC) | payer MEDICARE ==
[2018-08-10 16:50] VITALS: BMI 29.8
--- NOTE | 2018-08-18 21:30 | P.GSHP ---
History of Present Illness H&P Date: 08/18/18 Chief Complaint: Benign prostatic hyperplasia with obstruction The patient is a 67-year-old male with a history of symptomatic bladder obstruction which has been treated with doxazosin. His dose was gradually increased to 8 mg bid and he had been taking this dose for the last 2 years. He developed symptomatic orthostatic hypotension in 06/2018. He had undergone cardiac catheterization in 05/2018. Noncritical disease of his circumflex artery was found and further medical treatment was advised. His ejection fraction was 40%. He was advised to reduce the doxazosin dose to 8 mg daily in 06/2018 but was more symptomatic with bladder outflow obstruction. He was switched to alfuzosin 10 mg daily but did not find this to be effective. He is not interested in a trial of finasteride and wishes to proceed with TURP as he would then be able to discontinue doxazosin. He is admitted for this purpose. He says he usually voids every 3-4 hours and twice at night. He is not always certain that he voids completely. - Constitutional Constitutional: Denies chronic pain - Cardiovascular Cardiovascular: Reports lightheadedness, Denies chest pain, Denies leg edema, Denies shortness of breath - Respiratory Respiratory: Denies cough, Denies wheezing - Gastrointestinal Gastrointestinal: Reports heartburn, Denies abdominal pain - Genitourinary (Male) Genitourinary: Reports as per HPI - Musculoskeletal Musculoskeletal: Reports low back pain Past Medical History Past Medical History: Coronary Artery Disease (CAD), Cancer, Chest Pain / Angina , Diabetes Mellitus, GERD/Reflux, Hearing Disorder / Deafness, Hyperlipidemia, Osteoarthritis (OA), Prostate Disorder, Syncope Additional Past Medical History / Comment(s): CROHNS. CANCER-SKIN- MELANOMA. "AAA." Lt ear SL WALES - R/T INJURY. Irregular heart beat. HX STOMACH ulcer. ADMIT 07/12/18 W/ SYNCOPE, R/T BPH RX; BPH CURRENTLY. History of Any Multi-Drug Resistant Organisms: None Reported Past Surgical History: Back Surgery, Bowel Resection, Cholecystectomy, Heart Catheterization, Heart Catheterization With Stent, Orthopedic Surgery Additional Past Surgical History / Comment(s): 3 cardiac stents. Back surgery x 6 with metal rods; Cervical surgery with metal plate, COLONOSCOPY, EGD, Melanoma removals x 2, YOKO, -"patch to hole in heart" Past Anesthesia/Blood Transfusion Reactions: No Reported Reaction Date of Last Stent Placement:: unknown Smoking Status: Former smoker - Past Family History Father Family Medical History: Cancer Additional Family Medical History / Comment(s): LEUKEMIA- of at the age of 32 yrs. Mother Family Medical History: Cancer Additional Family Medical History / Comment(s): . Brother(s) Family Medical History: Cancer Medications and Allergies Home Medications Medication Instructions Recorded Confirmed Type Insulin Detemir [Levemir] 90 - 95 unit SQ HS PRN 03/11/17 08/10/18 History metFORMIN HCL [Metformin HCl] 500 mg PO BID 03/11/17 08/10/18 History Insulin Aspart [NovoLOG 25 - 30 unit SQ AC-TID PRN 07/20/17 08/10/18 History (formulary)] Metoclopramide [Reglan] 10 mg PO TID 07/20/17 08/10/18 History Omeprazole 40 mg PO HS 07/20/17 08/10/18 History Aspirin [Adult Low Dose Aspirin EC] 81 mg PO QAM 05/31/18 08/10/18 History Atorvastatin [Lipitor] 40 mg PO DAILY 05/31/18 08/10/18 History Lisinopril [Zestril] 2.5 mg PO DAILY 07/12/18 08/10/18 History Metoprolol Tartrate [Lopressor] 12.5 mg PO BID 07/12/18 08/10/18 History Spironolactone [Aldactone] 25 mg PO DAILY 07/12/18 08/10/18 History Allergies Allergy/AdvReac Type Severity Reaction Status Date / Time No Known Allergies Allergy Verified 08/10/18 16:20 Surgical - Exam - General no distress, obese - ENT no hearing loss - Neck no masses, no lymphadectomy - Respiratory normal expansion, clear to auscultation - Cardiovascular Rhythm: regular Abnormal Heart Sounds: no systolic murmur, no diastolic murmur - Abdomen Abdomen: soft, non tender, no organomegaly - Genitourinary normal penis with no external lesions, testicles non-tender - Rectum Rectum: other (Prostate is 2+ enlarged and benign to palpation) Assessment and Plan Assessment: The patient will undergo transurethral resection of the prostate under general anesthesia. He is aware of the operative risks which include anesthesia, bleeding, infection, retrograde ejaculation, incontinence, discovery of prostate cancer and persistent symptoms of bladder outflow obstruction. (1) BPH loc w urin obs/LUTS Status: Acute Code(s): N40.1 - BENIGN PROSTATIC HYPERPLASIA WITH LOWER URINARY TRACT SYMP SNOMED Code(s): 781442212
[~2018-08-20] MED LIST changes: -ALPRAZolam 0.25 MG TAB PO PRN; -ALPRAZolam 0.5 MG TAB PO PRN; -ASPIRIN 325 MG TAB PO STA; -ATORVASTATIN 80 MG TAB PO STA; +DEXAMETHASONE SOD PHOS (MDV) 100 MG/10 ML VIAL IVP ONE; -HEPARIN SODIUM 1,000 UN/ML (10ML VL) ONE; +HYDROmorphone 0.5 MG/0.5 ML SYRINGE IVP PRN; +INSULIN ASPART 100 UNIT/ML 1 ML 10 ML VIAL SQ ONE; -INSULIN ASPART 100 UNIT/ML 1 ML 10 ML VIAL SQ SCH; -IOPAMIDOL-370 100ML BTL INJ ONE; -IOPAMIDOL-370 125ML BTL INJ ONE; +LACTATED RINGERS 1,000 ML IV ONE; +LACTATED RINGERS 1,000 ML IV SCH; +LIDOCAINE 1% 20 ML VIAL (10MG/ML) FOR IV START INTRADERMA ONE; -LIDOCAINE 1% INJ 10MG/ML (20 ML MDV) SQ ONE; -MIDAZOLAM 2 MG/2 ML VIAL IV ONE; +MORPHINE SULFATE 2 MG/ML SYRINGE IV PRN; -NITROGLYCERIN SL TABS 0.4 MG TAB SUBLINGUAL PRN; +ONDANSETRON 4 MG/2 ML VIAL IVP ONE; +PHENYLEPHRINE-0.9% NACL SYG 1 MG/10 ML SYRINGE ONE; +PROPOFOL 10 MG/ML 20 ML VIAL IV ONE; -RX INFO: IV CONTRAST WAS GIVEN 1 EACH MISC MISCELLANE PRN; -SODIUM CHLORIDE 0.9% 1,000 ML IV SCH; -SODIUM CHLORIDE 0.9% 1,000 ML in EMPTY BAG 1 BAG IV ONE; +SUCCINYLCHOLINE CHLORIDE 100 MG/5 ML SYR IV ONE; +ceFAZolin IN SWFI 2 GM/20 ML SYRINGE IVP ONE; -fentaNYL (PF) 50 MCG/ML 2 ML AMP IV ONE
[2018-08-20 13:11] LABS: Glucose,Whole Blood 231 mg/dL (75-99)
--- NOTE | 2018-08-20 15:40 | P.OP ---
Date of Procedure: 08/20/18 Preoperative Diagnosis: Benign prostatic hyperplasia with obstruction Postoperative Diagnosis: Benign prostatic hyperplasia with obstruction Procedure(s) Performed: Transurethral resection of prostate Anesthesia: ALISE Surgeon: Mian Phoenix Estimated Blood Loss (ml): 20 Pathology: other (prostate tissue) Condition: stable Disposition: PACU Indications for Procedure: The patient is a 67-year-old male with symptomatic bladder outflow obstruction who has previously been treated with alpha blockers but now wishes to proceed with TURP. Description of Procedure: The patient was taken the operating suite where adequate general anesthesia via orotracheal intubation was instituted. The patient was placed in the dorsal lithotomy position with his legs suspended from padded Augie stirrups. Pneumatic compression stockings were applied to the lower legs. The genitalia was prepped with Betadine solution and draped in a sterile fashion. A prophylactic dorsal urethrotomy to 25-Tunisian was performed using the [employer] urethrotome. The 25-Tunisian resectoscope sheath with visual obturator and 30 lens was passed through the urethra under direct vision. The anterior urethra was unremarkable. Prostatic urethra showed evidence of lateral lobe enlargement which was obstructive. The bladder was examined. Both ureteral orifices were of normal location and configuration and effluxed clear urine. Bladder was free of tumor foreign body and diverticulum. Resection of the prostate was performed using the bipolar loop electrode and the continuous-flow Aleman resectoscope. Resection was started at 12:00 and continued down to the capsular fibers. In a concentric fashion the tissue was resected on the floor of the prostate. Resection was bounded proximally by the bladder neck and distally by the prostatic urethra adjacent to the vera. Posteriorly several tiny prostatic calculi were unroofed. At completion of the procedure the prostatic fossa and bladder neck appeared wide open. The external sphincter appeared intact. The prostate fragments were removed from the bladder and prostatic fossae using the helical evacuator. After ensuring adequate hemostasis and removal of all fragments resectoscope was withdrawn. An 18-Tunisian coud catheter was inserted and left to gravity drainage. The patient tolerated procedure well and left the operative room awake and in satisfactory condition. Blood loss was less than 20 mL. The patient will be discharged and will remove his catheter in 2 days.
[2018-08-20 15:43] VITALS: TEMP 96.9
[2018-08-20 15:49] LABS: Glucose,Whole Blood 201 mg/dL (75-99)
[2018-08-20 17:06] VITALS: BP 126/75; PULSE 78; RESP 18
== END | disposition home or self-care (01) ==
LOC: OR 12:40
PROVIDERS: ATTEND Urology
DX: N40.1 Benign prostatic hyperplasia with lower urinary tract symptoms (principal); N13.8 Other obstructive and reflux uropathy; I25.119 Atherosclerotic heart disease of native coronary artery with unspecified angina pectoris; E11.9 Type 2 diabetes mellitus without complications; K21.9 Gastro-esophageal reflux disease without esophagitis; E78.5 Hyperlipidemia, unspecified; M19.90 Unspecified osteoarthritis, unspecified site; K50.90 Crohn's disease, unspecified, without complications; H91.92 Unspecified hearing loss, left ear; I11.0 Hypertensive heart disease with heart failure; I50.9 Heart failure, unspecified; Z95.5 Presence of coronary angioplasty implant and graft; Z79.82 Long term (current) use of aspirin; Z79.4 Long term (current) use of insulin; Z79.899 Other long term (current) drug therapy; Z90.49 Acquired absence of other specified parts of digestive tract; Z85.820 Personal history of malignant melanoma of skin; Z87.11 Personal history of peptic ulcer disease; Z87.891 Personal history of nicotine dependence
CPT/HCPCS: 88305; 52601; J2250; J2405; J2001; J3010; J1100; J2370; J0330; J2704; J0690

== ENCOUNTER → 2018-08-31 | Outpatient (CLI) | payer MEDICARE ==
[2018-08-31 12:08] LABS: Basophils # (A) 0.1 k/uL (0-0.2); Basophils % (A) 1 %; Eosinophils # (A) 0.3 k/uL (0-0.7); Eosinophils % (A) 4 %; HCT 43.5 % (39.0-53.0); HGB 13.9 gm/dL (13.0-17.5); Lymphocytes % (A) 27 %; MCH 27.1 pg (25.0-35.0); MCHC 31.9 g/dL (31.0-37.0); Mean Platelet Volume 6.5; Monocytes # (A) 0.4 k/uL (0-1.0); Monocytes % (A) 5 %; Neutrophils # (A) 4.7 k/uL (1.3-7.7); Neutrophils % (A) 62 %; Platelet Count 281 k/uL (150-450); RBC 5.12 m/uL (4.30-5.90); RDW 13.9 % (11.5-15.5); WBC 7.6 k/uL (3.8-10.6)
[2018-08-31 16:33] LABS: T4, Free (Free Thyroxine) 1.1 ng/dL (0.80-1.80)
[2018-08-31 16:40] LABS: Albumin 4.4 g/dL (3.80-4.90); Albumin/Globulin Ratio 2.2 (1.20-2.10); Anion Gap 8.4 mmol/L (4.00-12.00); Calcium 10.1 mg/dL (8.7-10.3); Carbon Dioxide 24.6 mmol/L (21.6-31.8); Magnesium 1.9 mg/dL (1.5-2.4); Phosphorus 4.4 mg/dL (2.4-5.1); Potassium 4.9 mmol/L (3.5-5.5); Total Bilirubin 0.5 mg/dL (0.3-1.2); Total Protein 6.4 g/dL (6.2-8.2)
== END | disposition home or self-care (01) ==
LOC: LABWHC1 11:16
PROVIDERS: ATTEND Family Medicine
DX: Z00.00 Encounter for general adult medical examination without abnormal findings (principal); E78.5 Hyperlipidemia, unspecified; I10 Essential (primary) hypertension; E83.52 Hypercalcemia; E11.9 Type 2 diabetes mellitus without complications; Z79.4 Long term (current) use of insulin; Z79.899 Other long term (current) drug therapy
CPT/HCPCS: 36415; 80053; 80061; 83735; 83970; 84100; 84439; 84443; 85025

== ENCOUNTER → 2019-06-22 | Outpatient (CLI) | payer MEDICARE ==
[2019-06-22 17:42] LABS: African American GFR (CKD) >90 (>60 ml/min/1.73 sqM); Anion Gap 11 mmol/L; Blood Urea Nitrogen 13 mg/dL (9-20); Carbon Dioxide 25 mmol/L (22-30); Chloride 100 mmol/L (98-107); Potassium 4.5 mmol/L (3.5-5.1); Sodium 136 mmol/L (137-145)
[2019-06-22 19:56] LABS: HCT 39.6 % (39.0-53.0); HGB 13.6 gm/dL (13.0-17.5); MCH 28.2 pg (25.0-35.0); MCHC 34.4 g/dL (31.0-37.0); MCV 82.1 fL (80.0-100.0); Mean Platelet Volume 6.2; Platelet Count 363 k/uL (150-450); RBC 4.82 m/uL (4.30-5.90); RDW 13.5 % (11.5-15.5); WBC 9.9 k/uL (3.8-10.6)
== END | disposition home or self-care (01) ==
LOC: LABPAT 16:32
PROVIDERS: ATTEND Internal Medicine Interventional Cardiology
DX: Z01.812 Encounter for preprocedural laboratory examination (principal); I25.10 Atherosclerotic heart disease of native coronary artery without angina pectoris
CPT/HCPCS: 36415; 80051; 82565; 84520; 85027

== ENCOUNTER 2019-07-01 11:49 | Day surgery (SDC) | payer MEDICARE ==
[~2019-07-01 11:49] MED LIST changes: +ALPRAZolam 0.25 MG TAB PO PRN; +ALPRAZolam 0.5 MG TAB PO PRN; +ASPIRIN 325 MG TAB PO STA; +ATORVASTATIN 80 MG TAB PO STA; -DEXAMETHASONE SOD PHOS (MDV) 100 MG/10 ML VIAL IVP ONE; -HYDROmorphone 0.5 MG/0.5 ML SYRINGE IVP PRN; -INSULIN ASPART 100 UNIT/ML 1 ML 10 ML VIAL SQ ONE; -LACTATED RINGERS 1,000 ML IV ONE; -LACTATED RINGERS 1,000 ML IV SCH; -LIDOCAINE 1% 20 ML VIAL (10MG/ML) FOR IV START INTRADERMA ONE; -LIDOCAINE 1% INJ 10MG/ML (20 ML MDV) ONE; -MIDAZOLAM 2 MG/2 ML VIAL ONE; -MORPHINE SULFATE 2 MG/ML SYRINGE IV PRN; +NITROGLYCERIN SL TABS 0.4 MG TAB SUBLINGUAL PRN; -ONDANSETRON 4 MG/2 ML VIAL IVP ONE; -PHENYLEPHRINE-0.9% NACL SYG 1 MG/10 ML SYRINGE ONE; -PROPOFOL 10 MG/ML 20 ML VIAL IV ONE; +SODIUM CHLORIDE 0.9% 1,000 ML in EMPTY BAG 1 BAG IV ONE; -SUCCINYLCHOLINE CHLORIDE 100 MG/5 ML SYR IV ONE; -ceFAZolin IN SWFI 2 GM/20 ML SYRINGE IVP ONE; -fentaNYL (PF) 50 MCG/ML 2 ML AMP ONE
[2019-07-01 12:13] LABS: Glucose,Whole Blood 180 mg/dL (75-99)
[2019-07-01] MEDS ORDERED: SODIUM CHLORIDE 0.9% 1,000 ML IV ONE (12:19)
[2019-07-01] MEDS ORDERED: LIDOCAINE 1% INJ 10MG/ML (20 ML MDV) ONE (12:42)
[2019-07-01] MEDS ORDERED: MIDAZOLAM 2 MG/2 ML VIAL IV ONE (12:57)
[2019-07-01] MEDS ORDERED: LIDOCAINE 1% INJ 10MG/ML (20 ML MDV) SQ ONE (12:57)
[2019-07-01] MEDS ORDERED: IOPAMIDOL-370 125ML BTL INJ ONE (13:43)
[2019-07-01] MEDS ORDERED: RX INFO: IV CONTRAST WAS GIVEN 1 EACH MISC MISCELLANE PRN (13:45)
[2019-07-01] MEDS ORDERED: SODIUM CHLORIDE 0.9% 1,000 ML IV SCH (13:45)
[2019-07-01 15:43] VITALS: TEMP 98.1
[2019-07-01 16:01] VITALS: BMI 26.8
[2019-07-01 18:00] VITALS: BP 128/67
[2019-07-01 19:59] VITALS: RESP 17
[2019-07-01 20:00] VITALS: PULSE 91
--- NOTE | 2019-07-05 08:57 | CC ---
CARDIAC CATHETERIZATION REPORT DATE OF SERVICE: July 01, 2019 PERFORMING PHYSICIAN: Neel Santoyo MD, indian nanny. PROCEDURE PERFORMED: 1. Selective right and left coronary angiogram. 2. Left heart catheterization. INDICATIONS: This is a pleasant 68-year-old gentleman with history of coronary artery disease and prior triple-vessel stenting, who continues to have chest discomfort. He underwent myocardial perfusion imaging stress test and that revealed lateral ischemia. He is known also to have cardiomyopathy with EF in the range of 35-40 percent. Because of the continuous of his chest discomfort in spite of maximized medical treatment, I did advise proceeding with coronary angiogram. APPROACH: Right common femoral artery. COMPLICATION: None. LEVEL OF SEDATION: Moderate with sedation length of 30 minutes. PROCEDURE DESCRIPTION: After obtaining an informed consent, the patient was brought to the cardiac hospital laboratory technician. The right common femoral artery was cannulated using micropuncture technique, the micropuncture wire passed easily. Then I placed a 6-[place]ian sheath in the right common femoral artery. I did after that selective right and left coronary angiogram using an AL1 for the right coronary artery and JL4 for the left coronary system. Left heart catheterization was performed using 6-[place] Lucian pigtail catheter. The procedure was completed without any complication. SELECTIVE CORONARY ANGIOGRAM: 1. The right coronary artery is a large caliber vessel and it is a codominant vessel. The right coronary artery is stented in the midportion and the stent is patent. 2. The left main is a large caliber vessel. It is angiographically normal. It bifurcates into the left circumflex, ramus intermedius, and left anterior descending artery. 3. The left circumflex is a large caliber vessel and it is a nondominant vessel. The ostial circ right after the takeoff from the left main has a critical lesion appeared to be in the range of 80% to 90%. The circumflex continued after that in the midportion as a small caliber vessel after it gives a large OM branch. 4. The ramus intermedius has intermediate lesion appeared to be in the range of 50% to 60%. only. 5. The LAD: The proximal LAD appeared to be normal. The mid LAD and distal LAD appeared to be angiographically normal as well. The LAD gives rise into a diagonal branch in the midportion and that seems to be angiographically normal. HEMODYNAMICS: The left ventricular end-diastolic pressure was about 12 mmHg without significant gradient across aortic valve. CONCLUSION: 1. Patent stent in the mid RCA. The RCA has a posterior takeoff. It was engaged based using an AL1. 2. Critical disease involving the ostial of the left circumflex right from the takeoff of the OM from the left main. 3. Intermediate disease involving the ramus intermedius. 4. Mild disease involving the LAD. POSTPROCEDURE MANAGEMENT: The patient will be scheduled to undergo a balloon angioplasty and stenting of the left circumflex at separate session. MMODL / IJN: [id number] / MTDD
== END 2019-07-01 21:11 | disposition home or self-care (01) ==
LOC: CATHCVL 11:49 → 1SOBS 14:57 → CATHCVL 21:11
PROVIDERS: ATTEND Internal Medicine Interventional Cardiology
DX: I25.10 Atherosclerotic heart disease of native coronary artery without angina pectoris (principal); I10 Essential (primary) hypertension; Q21.1 Atrial septal defect; I95.1 Orthostatic hypotension; I42.9 Cardiomyopathy, unspecified; J44.9 Chronic obstructive pulmonary disease, unspecified; F17.210 Nicotine dependence, cigarettes, uncomplicated; E11.9 Type 2 diabetes mellitus without complications; E78.00 Pure hypercholesterolemia, unspecified; E78.5 Hyperlipidemia, unspecified; Z95.5 Presence of coronary angioplasty implant and graft; Z79.4 Long term (current) use of insulin; Z79.82 Long term (current) use of aspirin; Z79.899 Other long term (current) drug therapy; Z98.890 Other specified postprocedural states; Z82.49 Family history of ischemic heart disease and other diseases of the circulatory system
CPT/HCPCS: 93458; C1894; C1769 ×2; J2250; J2001; Q9967

== ENCOUNTER → 2019-08-02 | Outpatient (CLI) | payer MEDICARE ==
[2019-08-02 14:26] LABS: African American GFR (CKD) >90 (>60 ml/min/1.73 sqM); Blood Urea Nitrogen 14 mg/dL (9-20)
--- NOTE | 2019-08-02 15:39 | CT ---
EXAMINATION TYPE: CT angio chest DATE OF EXAM: 08/02/2019 COMPARISON: CT [facility] chest dated 01/16/2016 HISTORY: Thoracic aortic aneurysm without rupture CT DLP: 625.3 mGycm. Automated Exposure Control for Dose Reduction was Utilized. CONTRAST: CTA scan of the thorax is performed with IV Contrast, patient injected with 100 mL of Isovue 370, pul monary embolism protocol. MIP Images are created on CT scanner and reviewed. FINDINGS: LUNGS: Incidental note of azygous lobe and azygous fissure. There is a 2 mm solid pulmonary nodule in the anterior left upper lobe on series 5 image 28. Punctate 1 to 2 mm lingular pulmonary nodule on i mage 47 is marked. These appear punctate but new from the prior from 2016. No focal consolidation is seen within the lungs. There is no pleural effusion or pneumothorax seen. The tracheobronchial yair e is patent. MEDIASTINUM: The aortic root is aneurysmal measuring 4.4 cm on coronal series 7 image 16. The ascendi ng thoracic aorta at the level of main pulmonary artery measures 3.5 cm, within normal limits. The ao rtic arch measures 3.0 cm and is within normal limits with mild peripheral atherosclerosis. The desce nding thoracic aorta is also within normal limits measuring 2.5 cm with mild atherosclerosis. The upp er abdominal aorta is within normal limits measuring 2.3 cm. There is a conventional three-vessel branch pattern of the aortic arch. Severe coronary calcification s are seen within the left main coronary artery and left anterior descending coronary artery proximal ly. Mild coronary calcifications are seen within the remainder of the coronary arteries. Atherosclero sis is seen at the ostia of the SMA, celiac artery, and renal arteries, most notably of the left carie l artery ostia. There is satisfactory enhancement of the pulmonary artery and its branches, there is no CT evidence for pulmonary embolism. There are no greater than 1 cm hilar or mediastinal lymph nodes. No cardio megaly or pericardial effusion is seen. OTHER: There is very minimal retroareolar bilateral gynecomastia. Punctate calcifications are seen wi thin the pancreatic parenchyma, sequela of chronic pancreatitis. Gallbladder is surgically absent. Br idging anterior osteophytes are present diffuse idiopathic skeletal hyperostosis throughout the thora cic and visualized thoracolumbar spine. Postsurgical change of the lower cervical spine and upper lum bar spine are partially visualized. IMPRESSION: 1. Stable aortic root aneurysm measuring 4.4 cm (prior measurement on reconstructed images of 5.1 cm appears to be exaggerated as it is not reproducible on today's exam and the prior measurement of 4.4 cm is reproducible). 2. Severe coronary artery calcifications within the left main coronary artery and proximal left anter ior descending coronary artery, a marker of coronary artery disease. 3. New punctate left pulmonary nodules in comparison to the exam of 2016. Follow-up CT thorax could b e recommended in 12 months for nodules of this size. 4. Atherosclerosis of the aortic branch vessels most notably of the left renal ostia. There is hypert ension renal ultrasound with Doppler analysis could assess for sequela of renal arterial stenosis.
== END | disposition home or self-care (01) ==
LOC: RADCTMAIN 13:54
PROVIDERS: ATTEND Thoracic Surgery (Cardiothoracic Vascular Surgery)
DX: I25.10 Atherosclerotic heart disease of native coronary artery without angina pectoris (principal); I70.0 Atherosclerosis of aorta; R91.1 Solitary pulmonary nodule; I10 Essential (primary) hypertension; I71.2 Thoracic aortic aneurysm, without rupture
CPT/HCPCS: 82565; 84520; 71275; 36415; Q9967

== ENCOUNTER 2019-08-24 07:11 | Day surgery (SDC) | payer MEDICARE ==
[2019-08-22 12:27] VITALS: BMI 26.6
[~2019-08-24 07:11] MED LIST changes: -ALPRAZolam 0.25 MG TAB PO PRN; -ALPRAZolam 0.5 MG TAB PO PRN; -ASPIRIN 325 MG TAB PO STA; -ATORVASTATIN 80 MG TAB PO STA; +LACTATED RINGERS 1,000 ML IV SCH; +LIDOCAINE 1% 20 ML VIAL (10MG/ML) FOR IV START INTRADERMA PRN; -NITROGLYCERIN SL TABS 0.4 MG TAB SUBLINGUAL PRN; -SODIUM CHLORIDE 0.9% 1,000 ML in EMPTY BAG 1 BAG IV ONE
[2019-08-24 07:46] VITALS: RESP 16; TEMP 97.5
[2019-08-24 07:48] LABS: Glucose,Whole Blood 180 mg/dL (75-99)
[2019-08-24] MEDS ORDERED: PROPOFOL 10 MG/ML 20 ML VIAL IV ONE (08:02)
[2019-08-24] MEDS ORDERED: LIDOCAINE 1% INJ 10MG/ML (20 ML MDV) ONE (08:02)
--- NOTE | 2019-08-24 08:06 | P.GSHP ---
History of Present Illness H&P Date: 08/24/19 CHIEF COMPLAINT: GERD and colon screen HISTORY OF PRESENT ILLNESS: The patient is a 68-year-old male who presents with gastroesophageal reflux disease and need for colon screen. Upper and lower endoscopy were offered for further evaluation and management. PAST MEDICAL HISTORY: Please see list. PAST SURGICAL HISTORY: Please see list. MEDICATIONS: Please see list. ALLERGIES: Please see list. SOCIAL HISTORY: No illicit drug use FAMILY HISTORY: No reports of Crohn disease or ulcerative colitis. REVIEW OF ORGAN SYSTEMS: CONSTITUTIONAL: No reports of fevers or chills. GI: Denies any blood in stools or constipation. PHYSICAL EXAM: VITAL SIGNS: Stable GENERAL: Well-developed pleasant in no acute distress. HEENT: No scleral icterus. Extraocular movements grossly intact. Moist buccal mucosa. NECK: Supple without lymphadenopathy. CHEST: Unlabored respirations. Equal bilateral excursions. CARDIOVASCULAR: Regular rate and rhythm. Distal 2+ pulses. ABDOMEN: Soft, nondistended. MUSCULOSKELETAL: No clubbing, cyanosis, or edema. ASSESSMENT: 1. Gastroesophageal reflux disease 2. Colon screen. PLAN: 1. Recommend proceeding with an upper and lower endoscopy Past Medical History Past Medical History: Coronary Artery Disease (CAD), Cancer, Chest Pain / Angina, Diabetes Mellitus, GERD/Reflux, Hyperlipidemia, Hypertension, Osteoarthritis (OA), Prostate Disorder, Syncope Additional Past Medical History / Comment(s): [facility]OH[facility]. CANCER-SKIN- MELANOMA. "AAA." DR WATCHING.- Irregular heart beat. HX STOMACH ulcer, "going to need more bowel surgery soon" History of Any Multi-Drug Resistant Organisms: None Reported Past Surgical History: Back Surgery, Bowel Resection, Cholecystectomy, Heart Catheterization, Heart Catheterization With Stent, Orthopedic Surgery Additional Past Surgical History / Comment(s): 3 cardiac stents. Back surgery x 6 with metal rods; Cervical surgery with metal plate, COLONOSCOPY, EGD, Melanoma removals x 2, [facility], -"patch to hole in heart" Past Anesthesia/Blood Transfusion Reactions: No Reported Reaction Date of Last Stent Placement:: 2017 Smoking Status: Former smoker - Past Family History Father Family Medical History: Cancer Additional Family Medical History / Comment(s): LEUKEMIA- of at the age of 32 yrs. Mother Family Medical History: Cancer Additional Family Medical History / Comment(s): . Brother(s) Family Medical History: Cancer Medications and Allergies Home Medications Medication Instructions Recorded Confirmed Type Insulin Detemir (Levemir) [Levemir] 60 unit SQ HS 03/11/17 08/24/19 History metFORMIN HCL [Metformin HCl] 500 mg PO BID 03/11/17 08/22/19 History INSULIN ASPART (NovoLOG) [NovoLOG See Protocol SQ AC-TID PRN 07/20/17 08/22/19 History (formulary)] Omeprazole 40 mg PO HS 07/20/17 08/22/19 History Aspirin [Adult Low Dose Aspirin EC] 81 mg PO QAM 05/31/18 08/22/19 History Atorvastatin [Lipitor] 40 mg PO DAILY 05/31/18 08/22/19 History Lisinopril [Zestril] 2.5 mg PO DAILY 07/12/18 08/22/19 History Metoprolol Tartrate [Lopressor] 12.5 mg PO BID 07/12/18 08/22/19 History Spironolactone [Aldactone] 25 mg PO DAILY 07/12/18 08/22/19 History Semaglutide [Ozempic] 1 mg SQ Q7D 08/22/19 08/22/19 History Allergies Allergy/AdvReac Type Severity Reaction Status Date / Time No Known Allergies Allergy Verified 08/24/19 07:29 Surgical - Exam Vital Signs Temp Pulse Resp BP Pulse Ox 97.5 F L 96 16 131/63 98 08/24/19 07:39 08/24/19 07:39 08/24/19 07:39 08/24/19 07:39 08/24/19 07:39 Results - Labs Abnormal Lab Results - Last 24 Hours (Table) 08/24/19 Range/Units 07:44 POC Glucose (mg/dL) 180 H (75-99) mg/dL
--- NOTE | 2019-08-24 08:15 | P.PCN ---
Date of Procedure: 08/24/19 Description of Procedure: PREOPERATIVE DIAGNOSIS: Gastroesophageal reflux disease. Dyspnea POSTOPERATIVE DIAGNOSIS: Gastroesophageal reflux disease. Dyspnea Gastritis. OPERATION: Esophagogastroduodenoscopy with biopsies along antrum. SURGEON: Nicci Rankin MD ANESTHESIA: MAC. INDICATIONS: The patient is a 68-year-old male who presents with a history of reflux disease. Benefits and risks of the procedure were described. Informed consent was obtained. DESCRIPTION: The patient was brought into the endoscopy suite and laid in the left lateral decubitus position. An Olympus gastroscope was passed along the posterior oropharynx down to the distal esophagus where the squamocolumnar junction was encountered at 42 cm from the incisors. The stomach was entered and no bile reflux was found. Additional findings are listed below. Biopsies with cold forceps were obtained of the antrum. The first through third portion of the duodenum was examined and unremarkable. Retroflexion of the scope confirmed Hill grade 2 lower esophageal valve. The squamocolumnar junction demonstrated LA grade B erosive esophagitis. The stomach was desufflated. The patient tolerated the procedure well. FINDINGS: Squamocolumnar junction 42 cm from the incisors. Diaphragmatic hiatus at 42 cm. Hill grade 2 lower esophageal valve. LA grade B erosive esophagitis. No active duodenitis. Chronic gastritis RECOMMENDATIONS: Upper endoscopy as needed.
--- NOTE | 2019-08-24 08:45 | P.PCN ---
Date of Procedure: 08/24/19 Description of Procedure: PREOPERATIVE DIAGNOSIS: Ulcerative colitis, noncompliant History of colon resection, sigmoid colectomy Colonoscopy surveillance, high-risk POSTOPERATIVE DIAGNOSIS: Ulcerative colitis, noncompliant History of colon resection, sigmoid colectomy Colonoscopy surveillance, high-risk Multiple inflammatory polyps throughout the colon. Very poor prep OPERATION: Colonoscopy to the ileocecal valve and appendiceal orifice. Colonoscopy with hot snare polypectomy Colonoscopy with cold forceps biopsies. SURGEON: Nicci Rankin MD. ANESTHESIA: MAC. INDICATIONS: The patient is a 68-year-old male who presents for colonoscopy screening with high-risk history ulcerative colitis noncompliant. Benefits and risks were described and informed consent was obtained. DESCRIPTION OF PROCEDURE: The patient had undergone his own concoction of a prep of 7-Up and MiraLAX. He had been brought into the operating room and laid in the left lateral decubitus position. After adequate intravenous sedation, the rectum was examined with 2% lidocaine jelly. External hemorrhoids were encountered. The rectal tone was within normal limits. No lesions were palpated in the rectal vault. An Olympus colonoscope was advanced until the ileocecal valve was viewed. The prep was very poor. Moderate irrigation was used. No scattered diverticulosis was encountered. Random biopsies using cold forcep biopsy was performed. Snare polypectomy mid transverse colon was performed. Retroflexion of the scope demonstrated grade 1 internal hemorrhoids without active bleeding or inflammation. The colon was desufflated. The patient had tolerated the procedure well. Withdrawal time was over 6 minutes. FINDINGS: Aronchick preparation quality scale 4 (1-5), very poor prep Internal hemorrhoids, grade 1 External hemorrhoids, grade 2. No arteriovenous malformations No sigmoid diverticulosis Moderate inflammatory polyps at proximal transverse colon to sigmoid colon identified with random biopsies obtained with cold forceps biopsies. Snare polypectomy at mid transverse colon, 5 mm polyp. RECOMMENDATIONS: 1. With noncompliance and ulcerative colitis, total abdominal colectomy with ileostomy advised. 2. Prep was very poor, repeat colonoscopy in 6 months, January 2020 Plan - Discharge Summary Discharge Rx Participant: No New Discharge Prescriptions: No Action metFORMIN HCL [Metformin HCl] 500 mg PO BID Insulin Detemir (Levemir) [Levemir] 60 unit SQ HS Omeprazole 40 mg PO HS INSULIN ASPART (NovoLOG) [NovoLOG (formulary)] See Protocol SQ AC-TID PRN PRN Reason: Blood Sugar - High Aspirin [Adult Low Dose Aspirin EC] 81 mg PO QAM Atorvastatin [Lipitor] 40 mg PO DAILY Spironolactone [Aldactone] 25 mg PO DAILY Metoprolol Tartrate [Lopressor] 12.5 mg PO BID Lisinopril [Zestril] 2.5 mg PO DAILY Semaglutide [Ozempic] 1 mg SQ Q7D Discharge Medication List Insulin Detemir (Levemir) [Levemir] 60 unit SQ HS 03/11/17 [History] metFORMIN HCL [Metformin HCl] 500 mg PO BID 03/11/17 [History] INSULIN ASPART (NovoLOG) [NovoLOG (formulary)] See Protocol SQ AC-TID PRN 07/20/17 [History] Omeprazole 40 mg PO HS 07/20/17 [History] Aspirin [Adult Low Dose Aspirin EC] 81 mg PO QAM 05/31/18 [History] Atorvastatin [Lipitor] 40 mg PO DAILY 05/31/18 [History] Lisinopril [Zestril] 2.5 mg PO DAILY 07/12/18 [History] Metoprolol Tartrate [Lopressor] 12.5 mg PO BID 07/12/18 [History] Spironolactone [Aldactone] 25 mg PO DAILY 07/12/18 [History] Semaglutide [Ozempic] 1 mg SQ Q7D 08/22/19 [History] Follow up Appointment(s)/Referral(s): Nicci Rankin MD [STAFF PHYSICIAN] - 09/06/19 Patient Instructions/Handouts: Colorectal Polyps (GEN), Ulcerative Colitis (DC) Activity/Diet/Wound Care/Special Instructions: Very poor prep. Repeat colonoscopy 6 months, January 2020. Discharge Disposition: HOME SELF-CARE
[2019-08-24 08:57] VITALS: BP 120/79; PULSE 82
== END 2019-08-24 09:11 | disposition home or self-care (01) ==
LOC: ORWHC2ENDO 07:11
PROVIDERS: ATTEND Surgery Plastic and Reconstructive Surgery
DX: K29.50 Unspecified chronic gastritis without bleeding (principal); K21.0 Gastro-esophageal reflux disease with esophagitis; K22.10 Ulcer of esophagus without bleeding; K51.40 Inflammatory polyps of colon without complications; K64.4 Residual hemorrhoidal skin tags; K64.0 First degree hemorrhoids; K52.9 Noninfective gastroenteritis and colitis, unspecified; K44.9 Diaphragmatic hernia without obstruction or gangrene; E11.9 Type 2 diabetes mellitus without complications; I25.10 Atherosclerotic heart disease of native coronary artery without angina pectoris; E78.5 Hyperlipidemia, unspecified; I10 Essential (primary) hypertension; M19.90 Unspecified osteoarthritis, unspecified site; N40.0 Benign prostatic hyperplasia without lower urinary tract symptoms; Z91.19 Patient's noncompliance with other medical treatment and regimen; Z90.49 Acquired absence of other specified parts of digestive tract; Z85.820 Personal history of malignant melanoma of skin; Z87.11 Personal history of peptic ulcer disease; Z98.890 Other specified postprocedural states; Z95.5 Presence of coronary angioplasty implant and graft; Z86.79 Personal history of other diseases of the circulatory system; Z87.891 Personal history of nicotine dependence; Z79.4 Long term (current) use of insulin; Z79.899 Other long term (current) drug therapy; Z79.82 Long term (current) use of aspirin; Z98.1 Arthrodesis status; Z97.2 Presence of dental prosthetic device (complete) (partial); Z80.6 Family history of leukemia; Z80.9 Family history of malignant neoplasm, unspecified
CPT/HCPCS: 88305; 45380; 45385; 43239; J2001; J2704

== ENCOUNTER → 2019-09-22 | Outpatient (CLI) | payer MEDICARE ==
[2019-09-22 09:28] LABS: Basophils # (A) 0.1 k/uL (0-0.2); Basophils % (A) 1 %; Eosinophils # (A) 0.3 k/uL (0-0.7); Eosinophils % (A) 4 %; HCT 41.9 % (39.0-53.0); HGB 13.8 gm/dL (13.0-17.5); Lymphocytes # (A) 2.5 k/uL (1.0-4.8); Lymphocytes % (A) 37 %; MCH 28.4 pg (25.0-35.0); MCV 86.1 fL (80.0-100.0); Mean Platelet Volume 7.6; Monocytes # (A) 0.4 k/uL (0-1.0); Monocytes % (A) 6 %; Neutrophils # (A) 3.4 k/uL (1.3-7.7); Neutrophils % (A) 50 %; Platelet Count 323 k/uL (150-450); RBC 4.87 m/uL (4.30-5.90); RDW 13.6 % (11.5-15.5); WBC 6.9 k/uL (3.8-10.6)
[2019-09-22 17:56] LABS: African American GFR (CKD) 71.6 (60.0-200.0); Albumin 4.6 g/dL (3.80-4.90); Albumin/Globulin Ratio 2.19 (1.60-3.17); Anion Gap 7.3 mmol/L (4.00-12.00); BUN/Creat Ratio 11.67 Ratio (12.00-20.00); Carbon Dioxide 25.7 mmol/L (21.6-31.8); Chol/HDL Ratio 4.96; Globulin 2.1 g/dL (1.6-3.3); LDL Cholesterol,Calculated 80.2 mg/dL (0.0-131.0); Non-African American GFR(CKD) 61.8 (60.0-200.0); Potassium 4.9 mmol/L (3.5-5.5); Total Bilirubin 0.4 mg/dL (0.3-1.2); Total Protein 6.7 g/dL (6.2-8.2); VLDL Calculation 30.8 mg/dL (5.00-40.00)
[2019-09-22 18:00] LABS: T4, Free (Free Thyroxine) 1.1 ng/dL (0.80-1.80)
== END | disposition home or self-care (01) ==
LOC: LABWHC1 08:10
PROVIDERS: ATTEND Family Medicine
DX: E11.40 Type 2 diabetes mellitus with diabetic neuropathy, unspecified (principal); E83.52 Hypercalcemia
CPT/HCPCS: 36415; 80053; 80061; 84153; 84439; 84443; 85025

== ENCOUNTER 2019-10-21 14:18 | Emergency (ER) | payer MEDICARE ==
[2019-10-21 14:27] VITALS: TEMP 97
[2019-10-21 14:32] LABS: Glucose,Whole Blood 172 mg/dL (75-99)
[2019-10-21] MEDS ORDERED: LORazepam 2 MG/ML INJ IV STA ×2 (14:49→16:08)
--- NOTE | 2019-10-21 14:54 | ED ---
General Adult HPI <Sterling Vega - Last Filed: 10/21/19 16:17> - General Source: family, RN notes reviewed, old records reviewed Limitations: language barrier, altered mental status, physical limitation <uGrvinder Buchanan - Last Filed: 10/21/19 16:30> - General Chief complaint: Neuro Symptoms/Deficit Stated complaint: Seizure Time Seen by Provider: 10/21/19 14:40 - History of Present Illness Initial comments: 69-year-old male patient with past medical history of coronary artery disease, type 2 diabetes, hypertension hyperlipidemia presents to ED with chief complaint of pain and tremors/-like activity. Family reports the patient woke up today he is minimally verbal, was complaining of aches and pains all over which is not uncommon for him. Approximately around 12:30 PM patient began experiencing tremors in his upper or lower extremity/seizure-like activity. No falls or loss of consciousness noted. At that time patient has stopped speaking. Further history taking is limited. Systemic: Pt denies fatigue, fever/chills, rash. Pt denies weakness, night sweats, weight loss. Neuro: Pt denies headache, visual disturbances, syncope or pre-syncope. HEENT: Pt denies ocular discharge or irritation, otalgia, rhinorrhea, pharyngitis or notable lymphadenopathy. Cardiopulmonary: Pt denies chest pain, SOB, heart palpitations, dyspnea on exertion. Abdominal/GI: Pt denies abdominal pain, n/v/d. : Pt denies dysuria, burning w/ urination, frequency/urgency. Denies new onset urinary or bowel incontinence. MSK: Pt denies myalgia, loss of strength or function in extremities. Neuro: Pt denies new onset weakness, paresthesias. (Gurvinder Buchanan) - Related Data Home Medications Medication Instructions Recorded Confirmed Insulin Detemir (Levemir) [Levemir] 60 unit SQ HS 03/11/17 08/24/19 metFORMIN HCL [Metformin HCl] 500 mg PO BID 03/11/17 08/22/19 INSULIN ASPART (NovoLOG) [NovoLOG See Protocol SQ AC-TID PRN 07/20/17 08/22/19 (formulary)] Omeprazole 40 mg PO HS 07/20/17 08/22/19 Aspirin [Adult Low Dose Aspirin EC] 81 mg PO QAM 05/31/18 08/22/19 Atorvastatin [Lipitor] 40 mg PO DAILY 05/31/18 08/22/19 Lisinopril [Zestril] 2.5 mg PO DAILY 07/12/18 08/22/19 Metoprolol Tartrate [Lopressor] 12.5 mg PO BID 07/12/18 08/22/19 Spironolactone [Aldactone] 25 mg PO DAILY 07/12/18 08/22/19 Semaglutide [Ozempic] 1 mg SQ Q7D 08/22/19 08/22/19 Allergies Allergy/AdvReac Type Severity Reaction Status Date / Time No Known Allergies Allergy Verified 10/21/19 14:28 Review of Systems ROS Other: All systems not noted in ROS Statement are negative. <Sterling Vega - Last Filed: 10/21/19 16:17> ROS Other: All systems not noted in ROS Statement are negative. <Gurvinder Buchanan - Last Filed: 10/21/19 16:30> ROS Statement: Those systems with pertinent positive or pertinent negative responses have been documented in the HPI. Past Medical History Past Medical History: Coronary Artery Disease (CAD), Cancer, Chest Pain / Jody na, Diabetes Mellitus, GERD/Reflux, Hearing Disorder / Deafness, Hyperlipidemia, Osteoarthritis (OA), Prostate Disorder, Syncope Additional Past Medical History / Comment(s): CROHNS. CANCER-SKIN- MELANOMA. "AAA." Lt ear SL PAUMA - R/T INJURY. Irregular heart beat. HX STOMACH ulcer. ADMIT 07/12/18 W/ SYNCOPE, R/T BPH RX; BPH CURRENTLY. History of Any Multi-Drug Resistant Organisms: None Reported Past Surgical History: Back Surgery, Bowel Resection, Cholecystectomy, Heart Catheterization, Heart Catheterization With Stent, Orthopedic Surgery Additional Past Surgical History / Comment(s): 3 cardiac stents. Back surgery x 6 with metal rods; Cervical surgery with metal plate, COLONOSCOPY, EGD, Melanoma removals x 2, YOKO, -"patch to hole in heart" Past Anesthesia/Blood Transfusion Reactions: No Reported Reaction Date of Last Stent Placement:: unknown Past Psychological History: No Psychological Hx Reported Smoking Status: Former smoker - Past Family History Father Family Medical History: Cancer Additional Family Medical History / Comment(s): LEUKEMIA- of at the age of 32 yrs. Mother Family Medical History: Cancer Additional Family Medical History / Comment(s): . Brother(s) Family Medical History: Cancer <Gurvinder Buchanan - Last Filed: 10/21/19 16:30> General Exam Limitations: language barrier, altered mental status, physical limitation <Gurvinder Buchanan - Last Filed: 10/21/19 16:30> - General Exam Comments Initial Comments: Constitutional: NAD, AOX3, Pt has pleasant affect. HEENT: NC/AT, trachea midline, neck supple, no lymphadenopathy. Posterior pharynx non erythematous, without exudates. External ears appear normal, without discharge. Mucous membranes moist. Eyes PERRLA, EOM intact. There is no scleral icterus. No pallor noted. Cardiopulmonary: RRR, no murmurs, rubs or gallops, no JVD noted. Lungs CTAB in anterior and posterior herr. No peripheral edema. Abdominal exam: Abdomen soft and non-distended. Abdomen non-tender to palpation in all 4 quadrants. Bowel sounds active in LLQ. No hepatosplenomegaly. No ecchymosis Neuro: CN II-XII intact. No nuchal rigidity. No raccon eyes, no ma sign, no hemotympanum. No cervical spinal tenderness. NIH 0. MSK: No posterior calf tenderness bilaterally, homans sign negative bilaterally. Posterior tibialis and radial pulse +2 bilaterally. Sensation intact in upper and lower extremities. Full active ROM in upper and lower extremities, 5/5 stregnth. (Gurvinder Buchanan) Course <Sterling Vega - Last Filed: 10/21/19 16:17> Vital Signs 10/21/19 10/21/19 14:21 14:57 Temperature 97.0 F L Pulse Rate 91 86 Respiratory 18 16 Rate Blood Pressure 116/84 151/76 O2 Sat by Pulse 100 99 Oximetry - Reevaluation(s) Reevaluation #1: 10/21/19 16:17 PA supervision: I pursued a [id number] evaluation the patient he does have what appears be new onset seizure which I didn't witness. He does have a postictal state with it. He has a tonic-clonic activity discharged in the right hand and progresses aggressive body it does seem to last up to a minute or somewhat longer. No trauma reported no recent fevers chills sweats no prior history of seizure disorder or stroke. CAT scan shows no evidence of acute findings lab work was nondiagnostic. No neurology is available in this facility this week and today being Thursday afternoon patient will be transferred. No agree with this assessment and plan. (Sterling Vega) Medical Decision Making - Lab Data Result diagrams: 10/21/19 14:26 10/21/19 14:26 <Sterling Vega - Last Filed: 10/21/19 16:17> - Lab Data Result diagrams: 10/21/19 14:26 10/21/19 14:26 - EKG Data -: EKG Interpreted by Me (and Dr. Vega ) <Gurvinder Buchanan - Last Filed: 10/21/19 16:30> - Medical Decision Making 69-year-old male patient with past medical history of coronary artery disease, type 2 diabetes, hypertension hyperlipidemia presents to ED with chief complaint of pain and tremors/-like activity. Family reports the patient woke up today he is minimally verbal, was complaining of aches and pains all over which is not uncommon for him. Approximately around 12:30 PM patient began experiencing tremors in his upper or lower extremity/seizure-like activity. No falls or loss of consciousness noted. At that time patient has stopped speaking. Further history taking is limited. Patient will then stable, afebrile. On initial physical exam patient responded verbal commands, however would not speak. Was having tonic-clonic like activity is upper or lower extremities. Patient was initially 2 mg of Ativan. Afterwards patient trauma like activity stopped. Patient was alert and oriented 3. Neurologic exam is normal limits and NIH is 0. O2 investigations were obtained which displayed lactic acidosis a 4.4. Patient was administered 1.5 L bolus. Mild cytosis likely reactive. +[address] brain demonstrated acute process. Chest x-ray did not spell acute process. EKG was nonischemic. Patient is complaining currently of pain all over, in upper and lower extremities. She'll be transferred to [facility] for neurology evaluation. Was administered 1 g of Keppra emergency department as well as 3 g of Ativan. Accepting doctor is Dr. Bourgeois. (Gurvinder Buchanan) - Lab Data Lab Results 10/21/19 10/21/19 10/21/19 Range/Units 14:25 14:26 14:26 WBC 12.5 H (3.8-10.6) k/uL RBC 5.19 (4.30-5.90) m/uL Hgb 14.2 (13.0-17.5) gm/dL Hct 43.5 (39.0-53.0) % MCV 83.7 (80.0-100.0) fL MCH 27.3 (25.0-35.0) pg MCHC 32.6 (31.0-37.0) g/dL RDW 13.5 (11.5-15.5) % Plt Count 305 (150-450) k/uL Neutrophils % 61 % Lymphocytes % 24 % Monocytes % 8 % Eosinophils % 3 % Basophils % 1 % Neutrophils # 7.7 (1.3-7.7) k/uL Lymphocytes # 3.0 (1.0-4.8) k/uL Monocytes # 1.0 (0-1.0) k/uL Eosinophils # 0.4 (0-0.7) k/uL Basophils # 0.2 (0-0.2) k/uL PT (9.0-12.0) sec INR (<1.2) APTT (22.0-30.0) sec Sodium 136 L (137-145) mmol/L Potassium 4.9 (3.5-5.1) mmol/L Chloride 101 (98-107) mmol/L Carbon Dioxide 19 L (22-30) mmol/L Anion Gap 16 mmol/L BUN 18 (9-20) mg/dL Creatinine 0.82 (0.66-1.25) mg/dL Est GFR (CKD-EPI)AfAm >90 (>60 ml/min/1.73 sqM) Est GFR (CKD-EPI)NonAf >90 (>60 ml/min/1.73 sqM) Glucose 166 H (74-99) mg/dL POC Glucose (mg/dL) 172 H (75-99) mg/dL POC Glu Microwave Technician ID December Plasma Lactic Acid Rashi (0.7-2.0) mmol/L Calcium 10.7 H (8.4-10.2) mg/dL Total Bilirubin 0.6 (0.2-1.3) mg/dL AST 23 (17-59) U/L ALT 17 (4-49) U/L Alkaline Phosphatase 44 (38-126) U/L Ammonia (<30) umol/L Troponin I (0.000-0.034) ng/mL Total Protein 7.8 (6.3-8.2) g/dL Albumin 4.5 (3.5-5.0) g/dL Urine Color Urine Appearance (Clear) Urine pH (5.0-8.0) Ur Specific [place] (1.001-1.035) Urine Protein (Negative) Urine Glucose (UA) (Negative) Urine Ketones (Negative) Urine Blood (Negative) Urine Nitrite (Negative) Urine Bilirubin (Negative) Urine Urobilinogen (<2.0) mg/dL Ur Leukocyte Esterase (Negative) 10/21/19 10/21/19 10/21/19 Range/Units 14:26 14:26 14:26 WBC (3.8-10.6) k/uL RBC (4.30-5.90) m/uL Hgb (13.0-17.5) gm/dL Hct (39.0-53.0) % MCV (80.0-100.0) fL MCH (25.0-35.0) pg MCHC (31.0-37.0) g/dL RDW (11.5-15.5) % Plt Count (150-450) k/uL Neutrophils % % Lymphocytes % % Monocytes % % Eosinophils % % Basophils % % Neutrophils # (1.3-7.7) k/uL Lymphocytes # (1.0-4.8) k/uL Monocytes # (0-1.0) k/uL Eosinophils # (0-0.7) k/uL Basophils # (0-0.2) k/uL PT 9.6 (9.0-12.0) sec INR 0.9 (<1.2) APTT 23.7 (22.0-30.0) sec Sodium (137-145) mmol/L Potassium (3.5-5.1) mmol/L Chloride (98-107) mmol/L Carbon Dioxide (22-30) mmol/L Anion Gap mmol/L BUN (9-20) mg/dL Creatinine (0.66-1.25) mg/dL Est GFR (CKD-EPI)AfAm (>60 ml/min/1.73 sqM) Est GFR (CKD-EPI)NonAf (>60 ml/min/1.73 sqM) Glucose (74-99) mg/dL POC Glucose (mg/dL) (75-99) mg/dL POC Glu Microwave Technician ID Plasma Lactic Acid Rashi 4.4 H* (0.7-2.0) mmol/L Calcium (8.4-10.2) mg/dL Total Bilirubin (0.2-1.3) mg/dL AST (17-59) U/L ALT (4-49) U/L Alkaline Phosphatase (38-126) U/L Ammonia <9 (<30) umol/L Troponin I <0.012 (0.000-0.034) ng/mL Total Protein (6.3-8.2) g/dL Albumin (3.5-5.0) g/dL Urine Color Urine Appearance (Clear) Urine pH (5.0-8.0) Ur Specific [place] (1.001-1.035) Urine Protein (Negative) Urine Glucose (UA) (Negative) Urine Ketones (Negative) Urine Blood (Negative) Urine Nitrite (Negative) Urine Bilirubin (Negative) Urine Urobilinogen (<2.0) mg/dL Ur Leukocyte Esterase (Negative) 10/21/19 Range/Units 15:56 WBC (3.8-10.6) k/uL RBC (4.30-5.90) m/uL Hgb (13.0-17.5) gm/dL Hct (39.0-53.0) % MCV (80.0-100.0) fL MCH (25.0-35.0) pg MCHC (31.0-37.0) g/dL RDW (11.5-15.5) % Plt Count (150-450) k/uL Neutrophils % % Lymphocytes % % Monocytes % % Eosinophils % % Basophils % % Neutrophils # (1.3-7.7) k/uL Lymphocytes # (1.0-4.8) k/uL Monocytes # (0-1.0) k/uL Eosinophils # (0-0.7) k/uL Basophils # (0-0.2) k/uL PT (9.0-12.0) sec INR (<1.2) APTT (22.0-30.0) sec Sodium (137-145) mmol/L Potassium (3.5-5.1) mmol/L Chloride (98-107) mmol/L Carbon Dioxide (22-30) mmol/L Anion Gap mmol/L BUN (9-20) mg/dL Creatinine (0.66-1.25) mg/dL Est GFR (CKD-EPI)AfAm (>60 ml/min/1.73 sqM) Est GFR (CKD-EPI)NonAf (>60 ml/min/1.73 sqM) Glucose (74-99) mg/dL POC Glucose (mg/dL) (75-99) mg/dL POC Glu Microwave Technician ID Plasma Lactic Acid Rashi (0.7-2.0) mmol/L Calcium (8.4-10.2) mg/dL Total Bilirubin (0.2-1.3) mg/dL AST (17-59) U/L ALT (4-49) U/L Alkaline Phosphatase (38-126) U/L Ammonia (<30) umol/L Troponin I (0.000-0.034) ng/mL Total Protein (6.3-8.2) g/dL Albumin (3.5-5.0) g/dL Urine Color Yellow Urine Appearance Clear (Clear) Urine pH 6.0 (5.0-8.0) Ur Specific [place] 1.015 (1.001-1.035) Urine Protein Negative (Negative) Urine Glucose (UA) 3+ H (Negative) Urine Ketones Negative (Negative) Urine Blood Negative (Negative) Urine Nitrite Negative (Negative) Urine Bilirubin Negative (Negative) Urine Urobilinogen <2.0 (<2.0) mg/dL Ur Leukocyte Esterase Negative (Negative) - EKG Data EKG Comments: Ventricular rate 92,. Full 96, QRS 110, QT/QTC 370/47. Since rhythm with fusion complexes and premature atrial complexes with aberrant conduction. Normal EKG. (Gurvinder Buchanan) Disposition <Sterling Vega - Last Filed: 10/21/19 16:17> Is patient prescribed a controlled substance at d/c from ED?: No - Out of Hospital Transfer - Req. Specs Out of Hospital Transfer - Requested Specifics: Other Emergency Center ([facility] neurology) <Gurvinder Buchanan - Last Filed: 10/21/19 16:30> Clinical Impression: New onset seizure Disposition: OTHER INSTITUTION NOT DEFINED Condition: Serious Referrals: Lam Garcia MD [Primary Care Provider] - 1-2 days
[2019-10-21 14:59] VITALS: RESP 16
[2019-10-21 15:01] LABS: Basophils # (A) 0.2 k/uL (0-0.2); Basophils % (A) 1 %; Eosinophils # (A) 0.4 k/uL (0-0.7); Eosinophils % (A) 3 %; HCT 43.5 % (39.0-53.0); HGB 14.2 gm/dL (13.0-17.5); Lymphocytes % (A) 24 %; MCH 27.3 pg (25.0-35.0); MCHC 32.6 g/dL (31.0-37.0); MCV 83.7 fL (80.0-100.0); Mean Platelet Volume 7.6; Monocytes % (A) 8 %; Neutrophils # (A) 7.7 k/uL (1.3-7.7); Neutrophils % (A) 61 %; Platelet Count 305 k/uL (150-450); RBC 5.19 m/uL (4.30-5.90); RDW 13.5 % (11.5-15.5); WBC 12.5 k/uL (3.8-10.6)
[2019-10-21 15:10] LABS: INR 0.9 (<1.2); Partial Thromboplastin Time 23.7 sec (22.0-30.0); Prothrombin Time 9.6 sec (9.0-12.0)
[2019-10-21 15:11] LABS: ALT 17 U/L (4-49); AST 23 U/L (17-59); African American GFR (CKD) >90 (>60 ml/min/1.73 sqM); Albumin 4.5 g/dL (3.5-5.0); Alkaline Phosphatase 44 U/L (38-126); Anion Gap 16 mmol/L; Blood Urea Nitrogen 18 mg/dL (9-20); Calcium 10.7 mg/dL (8.4-10.2); Carbon Dioxide 19 mmol/L (22-30); Chloride 101 mmol/L (98-107); Glucose 166 mg/dL (74-99); Non-African American GFR(CKD) >90 (>60 ml/min/1.73 sqM); Potassium 4.9 mmol/L (3.5-5.1); Sodium 136 mmol/L (137-145); Total Bilirubin 0.6 mg/dL (0.2-1.3); Total Protein 7.8 g/dL (6.3-8.2)
[2019-10-21 15:12] LABS: Ammonia <9 umol/L (<30)
[2019-10-21 15:14] LABS: Lactic Acid, Venous 4.4 mmol/L (0.7-2.0)
--- NOTE | 2019-10-21 15:16 | XR ---
EXAMINATION TYPE: XR chest 2V DATE OF EXAM: 10/21/2019 COMPARISON: 07/12/2018 HISTORY: Pain and weakness. Altered mental status. TECHNIQUE: Frontal and lateral views of the chest are obtained. FINDINGS: There is no focal air space opacity, pleural effusion, or pneumothorax seen. Incidental no te of azygous lobe and fissure. The cardiac silhouette size is upper limits of normal. Atrial septal defect closure device is incidentally noted. The osseous structures are intact. Moderate multilevel degenerative change of the spine. IMPRESSION: No acute cardiopulmonary process.
[2019-10-21] MEDS ORDERED: SODIUM CHLORIDE 0.9% 1,000 ML IV STA (15:17)
[2019-10-21] MEDS ORDERED: SODIUM CHLORIDE 0.9% 500 ML 500 ML IV STA (15:17)
--- NOTE | 2019-10-21 15:23 | CT ---
EXAMINATION TYPE: CT brain wo con DATE OF EXAM: 10/21/2019 COMPARISON: 07/12/2018 HISTORY: Difficulty with speech. Tremors and weakness. CT DLP: 1147.[address] of the brain was performed. The ventricles, basal cisterns and sulci overlying the cerebral convexities demonstrate mild enlargem ent. There is no evidence for intracranial hemorrhage or sulcal effacement. There is decreased attenuation about the periventricular white matter and deep white matter of both c erebral hemispheres, compatible with chronic small vessel ischemia. Differential diagnosis does inclu de demyelination. No mass effects are seen.No midline shift. Osseous calvarium is intact. If symptoms persist consider MRI. IMPRESSION: 1. Age related atrophic and chronic small vessel ischemic change without acute intracranial process s een at this time.
[2019-10-21] MEDS ORDERED: levETIRAcetam IV 1,000 MG in SALINE 1 100ML.BAG IVPB STA (15:51)
[2019-10-21 16:12] LABS: Appearance,Urine Clear (Clear); Bilirubin,Urine Negative (Negative); Blood,Urine Negative (Negative); Color,Urine Yellow; Glucose,Urine (UA) 3+ (Negative); Ketones,Urine Negative (Negative); Leukocyte Esterase,Urine Negative (Negative); Nitrite,Urine Negative (Negative); Protein,Urine Negative (Negative); Specific Gravity,Urine 1.015 (1.001-1.035); Urobilinogen,Urine <2.0 mg/dL (<2.0)
[2019-10-21 17:38] VITALS: BP 145/76; PULSE 89
== END 2019-10-21 17:38 | disposition other institution (70) ==
LOC: EC 14:18
DX: R56.9 Unspecified convulsions (principal); I25.119 Atherosclerotic heart disease of native coronary artery with unspecified angina pectoris; E11.9 Type 2 diabetes mellitus without complications; I10 Essential (primary) hypertension; E78.5 Hyperlipidemia, unspecified; K21.9 Gastro-esophageal reflux disease without esophagitis; Z79.4 Long term (current) use of insulin; Z79.82 Long term (current) use of aspirin; Z79.899 Other long term (current) drug therapy; Z87.891 Personal history of nicotine dependence; Z95.5 Presence of coronary angioplasty implant and graft; Z85.820 Personal history of malignant melanoma of skin
CPT/HCPCS: 99285 ×2; 96374 ×2; 96375 ×2; 96376 ×2; 96361 ×2; 36415; 93005; 80053; 82140; 82550; 83605; 84484; 85025; 85610; 85730; 81003; 71046; 70450; J2060; J1953

== ENCOUNTER → 2019-11-04 | Outpatient (CLI) | payer MEDICARE ==
--- NOTE | 2019-11-04 16:52 | MR ---
EXAMINATION TYPE: MR brain wo/w con DATE OF EXAM: 11/04/2019 COMPARISON: CT Brain 10-21-2019 HISTORY: Tremors, Hx of parkinson's and dementia CONTRAST: Performed utilizing 8.5 mL intravenous Gadavist gadolinium contrast. TECHNIQUE: Multiplanar, multiecho imaging on a 3.0 Leonora magnet is performed through the brain. Stud y is performed within 24 hours of arrival to the hospital. The craniovertebral junction is normal. The pituitary is normal. Diffusion-weighted imaging is performed. No abnormal hyperintensity is present to suggest an acute i ntracranial infarct or acute ischemic change. There are scattered punctate areas of hyperintensity on T2 and Inversion Recovery weighted sequences which are non-specific but can be related to microvascular ischemic changes. Ventricles and sulci are appropriate for the patient age. No abnormal enhancement is evident. IMPRESSIONS: 1. Mild periventricular chronic appearing microvascular ischemic changes with age related atrophy.
== END | disposition home or self-care (01) ==
LOC: RADMRIMAIN 14:08
PROVIDERS: ATTEND Family Medicine
DX: G31.1 Senile degeneration of brain, not elsewhere classified (principal); I67.82 Cerebral ischemia
CPT/HCPCS: 70553; A9585

== ENCOUNTER → 2019-11-10 | Outpatient (CLI) | payer MEDICARE ==
[2019-11-10 17:31] LABS: Basophils # (A) 0.1 k/uL (0-0.2); Basophils % (A) 1 %; Eosinophils # (A) 0.3 k/uL (0-0.7); Eosinophils % (A) 4 %; HCT 42.7 % (39.0-53.0); HGB 13.5 gm/dL (13.0-17.5); Lymphocytes # (A) 2.3 k/uL (1.0-4.8); Lymphocytes % (A) 35 %; MCH 26.7 pg (25.0-35.0); MCHC 31.6 g/dL (31.0-37.0); MCV 84.7 fL (80.0-100.0); Mean Platelet Volume 7.1; Monocytes # (A) 0.4 k/uL (0-1.0); Monocytes % (A) 6 %; Neutrophils # (A) 3.4 k/uL (1.3-7.7); Neutrophils % (A) 52 %; Platelet Count 282 k/uL (150-450); RBC 5.04 m/uL (4.30-5.90); RDW 13.8 % (11.5-15.5); WBC 6.7 k/uL (3.8-10.6)
[2019-11-10 21:52] LABS: Erythrocyte Sedimentation Rate 7 mm/hr (0-15)
[2019-11-11 00:45] LABS: ALT 19 U/L (10-49); AST 19 U/L (14-35); African American GFR (CKD) 79.5 (60.0-200.0); Albumin/Globulin Ratio 2.37 (1.60-3.17); Alkaline Phosphatase 35 U/L (41-126); BUN/Creat Ratio 10.91 Ratio (12.00-20.00); C Reactive Protein <0.4 mg/dL (0.0-0.8); Calcium 9.8 mg/dL (8.7-10.3); Carbon Dioxide 28.6 mmol/L (21.6-31.8); Chloride 103 mmol/L (96-109); Globulin 1.9 g/dL (1.6-3.3); Glucose 203 mg/dL (70-110); Non-African American GFR(CKD) 68.6 (60.0-200.0); Potassium 4.6 mmol/L (3.5-5.5); Sodium 136 mmol/L (135-145); Total Bilirubin 0.4 mg/dL (0.3-1.2); Total Protein 6.4 g/dL (6.2-8.2)
== END | disposition home or self-care (01) ==
LOC: LABWHC1 16:43
PROVIDERS: ATTEND Internal Medicine
DX: K51.018 Ulcerative (chronic) pancolitis with other complication (principal)
CPT/HCPCS: 36415; 80053; 85025; 85652; 86140

== ENCOUNTER → 2019-11-16 | Outpatient (CLI) | payer MEDICARE ==
[~2019-11-16] MED LIST changes: +IODINE/POTASS IOD (LUGOLS) BOTTLE TOPICAL ONE; -LACTATED RINGERS 1,000 ML IV SCH; -LIDOCAINE 1% 20 ML VIAL (10MG/ML) FOR IV START INTRADERMA PRN
--- NOTE | 2019-11-17 14:41 | NM ---
EXAMINATION TYPE: NM DatScan Brain SPECT DATE OF EXAM: 11/16/2019 COMPARISON: NONE HISTORY: Parkinson's disease, R 26.89 TECHNIQUE: 10 drops of Lugol's solution was administered 1 hour prior to injection as a thyroid bloc jasbir agent. After the administration of 4.2 mCi I-123 Ioflupane DaTscan. Images obtained [address] injection. SPECT images of the brain were acquired with axial and coronal reconstructions. FINDINGS: There is symmetric and unremarkable appearance within the striata, normal uptake of the radio pharmac eutical is noted bilaterally. IMPRESSION: Normal MONIQUE scan
== END | disposition home or self-care (01) ==
LOC: RADNMMAIN 10:38
PROVIDERS: ATTEND Psychiatry & Neurology Vascular Neurology
DX: G20 Parkinson's disease (principal); R26.89 Other abnormalities of gait and mobility
CPT/HCPCS: 78803; A9584

== ENCOUNTER → 2019-11-17 | Outpatient (CLI) | payer MEDICARE ==
--- NOTE | 2019-11-17 22:44 | EEG ---
ELECTROENCEPHALOGRAM REPORT DATE OF PROCEDURE: 11/17/2019 ELECTROENCEPHALOGRAM (EEG) REPORT: TECHNIQUE: A routine 18-channel EEG was performed with video using the 10/20 international electrode placement system. HISTORY: One episode of whole body tremor without loss of consciousness. During the episode, patient was nonverbal. Other medical history includes diabetes, hypertension, hyperlipidemia. CURRENT MEDICATIONS: Lisinopril, aspirin, Lipitor, insulin, metoprolol, metformin. STUDY DURATION: 33 minutes. FINDINGS: BACKGROUND: The background activity consisted of 8 to 9 Hz rhythmic waveforms symmetrically distributed through both posterior quadrants. ACTIVATION: Hyperventilation: Not performed. Photic stimulation: Symmetric driving seen. Sleep: None. ABNORMALITIES: None. Please note that per quality control technician annotation during a significant portion of this recording the patient had constant mouth movement; this was not associated with epileptiform activity. Muscle artifact was seen at that time. Also please note that one channel of this EEG was dedicated to EKG. At times it did not demonstrate a sinus rhythm. IMPRESSION: Normal EEG. No epileptiform activity was present. No seizures were recorded. MMODL / IJN: [id number] /
== END | disposition home or self-care (01) ==
LOC: NEUROMAIN 10:50
PROVIDERS: ATTEND Psychiatry & Neurology Vascular Neurology
DX: G20 Parkinson's disease (principal); R26.89 Other abnormalities of gait and mobility
CPT/HCPCS: 95816

== ENCOUNTER → 2019-11-24 | Outpatient (CLI) | payer MEDICARE ==
--- NOTE | 2019-11-24 12:42 | FL ---
EXAMINATION TYPE: FL barium swallow DATE OF EXAM: 11/24/2019 CLINICAL HISTORY: Gastroesophageal reflux. History of Crohn's disease. TECHNIQUE: A double contrast esophagram is performed utilizing air and barium. A total of 1 minute and 28 seconds of fluoroscopic time was utilized during procedure. 44 fluoroscopic images were saved during the examination. COMPARISON: None FINDINGS: The esophagus shows normal motility and emptying into the stomach on upright imaging. On rust pine imaging there few tertiary contractions are likely on the basis of early presbyesophagus. There is a small hiatal hernia present. No evidence stricture noted. Moderate gastroesophageal reflux was seen during real time performance of this study. Incidentally noted severe calcifications near the le ft carotid artery. These appear external to the artery on the prior CT dated 06/13/2017. Cervical fusi on plate is seen. IMPRESSION: 1. Small hiatal hernia with moderate gastroesophageal reflux. 2. Few tertiary contractions on supine imaging only suggesting early presbyesophagus.
== END | disposition home or self-care (01) ==
LOC: RADUSWWP 10:51
PROVIDERS: ATTEND Surgery Plastic and Reconstructive Surgery
DX: K21.9 Gastro-esophageal reflux disease without esophagitis (principal); K44.9 Diaphragmatic hernia without obstruction or gangrene
CPT/HCPCS: 74220

== ENCOUNTER 2020-03-29 08:46 | Day surgery (SDC) | payer MEDICARE ==
--- NOTE | 2020-03-29 08:41 | P.GSHP ---
History of Present Illness H&P Date: 03/29/20 CHIEF COMPLAINT: Paraesophageal hiatal hernia with gastroesophageal reflux disease. HISTORY OF PRESENT ILLNESS: The patient is a 69-year-old male who presents with paraesophageal hiatal hernia. He has completed an esophageal manometry including upper endoscopy workup. Now he presents for surgical intervention. PAST MEDICAL HISTORY: Please see list. PAST SURGICAL HISTORY: Please see list. MEDICATIONS: Please see list. ALLERGIES: Please see list. SOCIAL HISTORY: No illicit drug use FAMILY HISTORY: No reports of Crohn disease or ulcerative colitis. REVIEW OF ORGAN SYSTEMS: CONSTITUTIONAL: No reports of fevers or chills. GI: Has history of ulcerative colitis currently on treatment. PHYSICAL EXAM: VITAL SIGNS: Stable GENERAL: Well-developed pleasant and in no acute distress. HEENT: No scleral icterus. Extraocular movements grossly intact. Moist buccal mucosa. NECK: Supple without lymphadenopathy. CHEST: Unlabored respirations. Equal bilateral excursions. CARDIOVASCULAR: Regular rate and rhythm. Distal 2+ pulses. ABDOMEN: Soft, nondistended. No peritoneal signs. MUSCULOSKELETAL: No clubbing, cyanosis, or edema. SKIN: Well-perfused. Good skin turgor. MANOMETRY: Shows no evidence of achalasia or scleroderma. ASSESSMENT: 1. Diaphragmatic paraesophageal hiatal hernia with severe gastroesophageal reflux disease. PLAN: 1. Recommend proceeding with a robotic paraesophageal hiatal hernia with possible mesh. 2. Benefits and risks of surgical intervention was discussed including possibility of open technique. 3. Inpatient hospitalization recommended of 2 nights 4. DVT prophylaxis. 5. Antibiotic prophylaxis. Past Medical History Past Medical History: Coronary Artery Disease (CAD), Cancer, Chest Pain / Angina, Diabetes Mellitus, GERD/Reflux, Hearing Disorder / Deafness, Hyperlipidemia, Memory Impairment, Osteoarthritis (OA), Prostate Disorder, Syncope Additional Past Medical History / Comment(s): Crohns. Skin Cancer, Melanoma. "AAA." Lt ear Sl KOTZEBUE - R/T injury. Irregular heart beat. Hx Stomach ulcer. BPH. Parkinson's, dementia. Hiatal hernia. History of Any Multi-Drug Resistant Organisms: None Reported Past Surgical History: Back Surgery, Bowel Resection, Cholecystectomy, Heart Catheterization, Heart Catheterization With Stent, Orthopedic Surgery Additional Past Surgical History / Comment(s): 3 cardiac stents. Back surgery x 6 with metal rods; Cervical surgery with metal plate, COLONOSCOPY, EGD, Melanoma removals x 2, YOKO, Closure ASD 10/2016 Past Anesthesia/Blood Transfusion Reactions: No Reported Reaction Date of Last Stent Placement:: 08/12/16 Smoking Status: Former smoker - Past Family History Father Family Medical History: Cancer Additional Family Medical History / Comment(s): LEUKEMIA- of at the age of 32 yrs. Mother Family Medical History: Cancer Additional Family Medical History / Comment(s): . Brother(s) Family Medical History: Cancer Medications and Allergies Home Medications Medication Instructions Recorded Confirmed Type Insulin Detemir (Levemir) [Levemir] 60 unit SQ HS 03/11/17 03/22/20 History metFORMIN HCL [Metformin HCl] 500 mg PO BID 03/11/17 03/22/20 History INSULIN ASPART (NovoLOG) [NovoLOG See Protocol SQ AC-TID PRN 07/20/17 03/22/20 History (formulary)] Omeprazole 40 mg PO HS 07/20/17 03/22/20 History Aspirin [Adult Low Dose Aspirin EC] 81 mg PO QAM 05/31/18 03/22/20 History Atorvastatin [Lipitor] 40 mg PO DAILY 05/31/18 03/22/20 History Lisinopril [Zestril] 2.5 mg PO DAILY 07/12/18 03/22/20 History Metoprolol Tartrate [Lopressor] 25 mg PO DAILY 07/12/18 03/22/20 History Spironolactone [Aldactone] 25 mg PO DAILY 07/12/18 03/22/20 History Semaglutide [Ozempic] 1 mg SQ WE 08/22/19 03/22/20 History Amantadine HCl [Amantadine] 50 mg PO HS 03/22/20 03/22/20 History Amantadine HCl [Amantadine] 100 mg PO DAILY 03/22/20 03/22/20 History Metoclopramide HCl [Reglan] 10 mg PO DAILY 03/22/20 03/22/20 History Allergies Allergy/AdvReac Type Severity Reaction Status Date / Time No Known Allergies Allergy Verified 03/22/20 14:33
[~2020-03-29 08:46] MED LIST changes: +DEXAMETHASONE SOD PHOSPHATE 10 MG/ML 1 ML VIAL IV ONE; +HEPARIN SODIUM,PORCINE 5,000 UNIT/ML 1 ML VIAL SQ ONE; +HYDROmorphone 0.5 MG/0.5 ML SYRINGE IVP PRN; -IODINE/POTASS IOD (LUGOLS) BOTTLE TOPICAL ONE; +ONDANSETRON 4 MG/2 ML VIAL IVP ONE
[2020-03-29] MEDS ORDERED: TAMSULOSIN 0.4 MG CAP.ER.24H PO STA (09:31)
[2020-03-29] MEDS ORDERED: ACETAMINOPHEN TAB 500 MG TAB PO STA (09:31)
[2020-03-29] MEDS ORDERED: GABAPENTIN 300 MG CAP PO STA (09:31)
[2020-03-29] MEDS: LACTATED RINGERS 1,000 ML IV SCH (09:57)
[2020-03-29] MEDS ORDERED: ONDANSETRON 4 MG/2 ML VIAL ONE (09:59)
[2020-03-29] MEDS ORDERED: HEPARIN SODIUM,PORCINE 5,000 UNIT/ML 1 ML VIAL ONE (09:59)
[2020-03-29] MEDS ORDERED: ACETAMINOPHEN TAB 500 MG TAB ONE (09:59)
[2020-03-29 10:01] LABS: Basophils # (A) 0.1 k/uL (0-0.2); Basophils % (A) 1 %; Eosinophils # (A) 0.2 k/uL (0-0.7); Eosinophils % (A) 3 %; HCT 44.4 % (39.0-53.0); HGB 14.4 gm/dL (13.0-17.5); Lymphocytes # (A) 1.6 k/uL (1.0-4.8); Lymphocytes % (A) 23 %; MCH 26.7 pg (25.0-35.0); MCHC 32.5 g/dL (31.0-37.0); MCV 82.2 fL (80.0-100.0); Mean Platelet Volume 7.1; Monocytes # (A) 0.4 k/uL (0-1.0); Monocytes % (A) 6 %; Neutrophils # (A) 4.5 k/uL (1.3-7.7); Neutrophils % (A) 66 %; Platelet Count 310 k/uL (150-450); RDW 14.5 % (11.5-15.5); WBC 6.8 k/uL (3.8-10.6)
[2020-03-29 10:10] LABS: African American GFR (CKD) >90 (>60 ml/min/1.73 sqM); Anion Gap 13 mmol/L; Blood Urea Nitrogen 25 mg/dL (9-20); Calcium 10.5 mg/dL (8.4-10.2); Carbon Dioxide 19 mmol/L (22-30); Chloride 100 mmol/L (98-107); Glucose 154 mg/dL (74-99); Non-African American GFR(CKD) >90 (>60 ml/min/1.73 sqM); Sodium 132 mmol/L (137-145)
[2020-03-29] MEDS ORDERED: SODIUM CHLORIDE 0.9% 1,000 ML IV ONE (10:20)
[2020-03-29] MEDS ORDERED: PHENYLEPHRINE-0.9% NACL SYG 1 MG/10 ML SYRINGE ONE (11:50)
[2020-03-29] MEDS ORDERED: ROCURONIUM BROMIDE 10 MG/ML 5 ML VIAL IV ONE (11:50)
[2020-03-29] MEDS ORDERED: GLYCOPYRROLATE 0.2 MG/ML 2 ML VIAL ONE (11:50)
[2020-03-29] MEDS ORDERED: NEOSTIGMINE 1 MG/ML 10 ML VIAL ONE (11:50)
[2020-03-29] MEDS ORDERED: PROPOFOL 10 MG/ML 20 ML VIAL IV ONE (11:50)
[2020-03-29] MEDS ORDERED: fentaNYL (PF) 50 MCG/ML 2 ML AMP ONE (11:50)
[2020-03-29] MEDS ORDERED: LIDOCAINE 1% INJ 10MG/ML (20 ML MDV) ONE (11:50)
[2020-03-29] MEDS ORDERED: SUCCINYLCHOLINE CHLORIDE 100 MG/5 ML SYR IV ONE (11:50)
[2020-03-29] MEDS ORDERED: BUPIVACAIN-EPI 0.25%-1:200,000 30 ML VIAL SQ ONE (12:25)
[2020-03-29] MEDS ORDERED: HYDROmorphone 1 MG/ML 1 ML SYRINGE IVP PRN (14:01)
--- NOTE | 2020-03-29 14:01 | P.OP ---
Date of Procedure: 03/29/20 Description of Procedure: SURGEON: CONCHA ALAS MD PREOPERATIVE DIAGNOSES: 1. Symptomatic paraesophageal diaphragmatic hiatal hernia. 2. Gastroesophageal reflux disease. 3. Gastroparesis 4. Diabetes type 2, insulin-dependent 5. Hyperlipidemia 6. Parkinson's disease 7. Ulcerative colitis 8. Coronary artery disease 9. Ischemic cardiomyopathy 10. History of cardiac stent placement 11. Urinary retention, pre-existing 12. History of dementia POSTOPERATIVE DIAGNOSES: 1. Symptomatic paraesophageal diaphragmatic hiatal hernia, midline 4 x 4 cm, incarcerated 2. Gastroesophageal reflux disease. 3. Gastroparesis 4. Diabetes type 2, insulin-dependent 5. Hyperlipidemia 6. Parkinson's disease 7. Ulcerative colitis 8. Coronary artery disease 9. Ischemic cardiomyopathy 10. History of cardiac stent placement 11. Urinary retention, pre-existing 12. History of dementia OPERATION: 1. Robotic-assisted da Radha Xi laparoscopic repair of incarcerated paraesophageal hiatal hernia, 4 x 4 cm, with [place] Biopatch A 8 x 8 cm. 2. Intraoperative esophagogastroduodenoscopy 3. Placement of 56-Syriac bougie ANESTHESIA: General with local anesthetic. ESTIMATED BLOOD LOSS: 5 mL SPECIMENS REMOVED: None COMPLICATIONS: None. Condition: stable Disposition: floor FINDINGS: 1. Midline incarcerated paraesophageal hiatal hernia 4 x 4 cm 2. Intraoperative upper endoscopy confirms complete closure of hiatal hernia from Hill grade 4 to Hill grade 1 3. Intraesophageal length over 3+ centimeters INDICATIONS: The patient is a 69-year-old male who presents with epigastric abdominal pain, gastroesophageal reflux disease poorly controlled despite medications, and a symptomatic diaphragmatic hiatal hernia. Preoperative workup including upper endoscopy demonstrated a sliding hiatal hernia. He completed an esophageal manometry. Given the severity of symptoms, he had elected for surgical intervention. Benefits and risks including bleeding, infection, recurrence, dysphagia, injury to the lung, need for further surgery was described at length. Informed consent was obtained. DESCRIPTION: The patient was brought into the operating room and placed in supine position. Preoperatively she had received heparin subcutaneously for DVT prophylaxis. After general induction, the abdomen was prepped and draped in standard sterile fashion. The patient had previously voided prior to coming to the operating room. Ioban draping was placed along the abdomen. A timeout protocol was confirmed with the surgical team, for which the patient's name, procedure to be performed including DVT prophylaxis with bilateral SCDs, and preoperative antibiotics were also confirmed. A robotic da Radha Xi system was prepped and primed. At 12 cm from the xiphoid to just below the umbilicus, proposed port sites were marked with indelible marker along the left axillary line, left mid-clavicular line with each ports were marked 10 cm from each other. A 5 mm 0 degrees laparoscopic trocar entry was performed along the left upper quadrant. The abdomen was insufflated to 15 mmHg pressure was tolerated well. Diagnostic laparoscopy demonstrated no injury to bowel, viscera, or mesentery. No injury had occurred to the small bowel or viscera. The liver was smooth, with sharp edges consistent with two-week high-protein low-carb diet. Previous trochar sites from cholecystectomy were used. Next, one 8 mm robotic port was placed along the right upper abdomen. An 8-mm port was were placed along the right lateral lateral abdominal wall. The camera 8-mm port was maintained along the epigastrium. Another 12 mm port was placed along the left upper abdominal wall after exchanging the 5 mm port. Please note that the ports were placed at least 20 cm away from the target anatomy. Care was taken to check that each robotic arm were safely away from collision with the bed or the patient. At the epigastrium, a medium sized Marcus liver retractor was placed under direct visualization with the [employer] Portal Developer placed under the right shoulder of the patient. All robotic arms were used. The patient was repositioned in reverse Trendelenburg position at 16-degrees after lowering the bed. The robot was docked above the right side of the patient. Using a grasper for arm 3, a grasper for arm 1, including vessel sealer for arm 2, the robotic system was docked and primed as described. Instruments were interchanged by the assistant professor of education. I had sat at the console. Greater omental to abdominal wall adhesions were identified along the epigastrium and taken down using vessel sealer. The gastrohepatic ligament was cleaved using a vessel sealer. Next, the phrenoesophageal ligament was mobilized and the distal esophagus was mobilized circumferentially. The left and right crura was identified. Circumferentially, the hernia sac was excised and brought into the peritoneal cavity. Moderate dissection into the mediastinum was performed to release the esophagus into the abdominal cavity. The paraesophageal hiatal hernia sac was also incised and divided from the esopha kelly. Care was taken to avoid any gastrotomy. The measured defect was consistent with 4 cm axial length and 4 cm in width. After dissection, the distal esophagus of 2+ cm was brought into the abdominal cavity. Once the hiatus and crura was dissected, nonabsorbable 2-0 VLOC suture was placed to reapproximate the diaphragmatic hiatus posteriorly. To buttress the repair, a [place] Biopatch A was prepared along the back table and cut in half of a roa-hole fashion as to reinforce the repair as an underlay. The mesh was placed along the crural repair and tagged using horizontal mattress sutures using 2-0 VLOC. I went to the head of the bed to perform intraoperative esophagogastroduodenoscopy and placement of a 56Fr bougie. The bougie was passed along the posterior oropharynx into the stomach with minimal resistance. An Olympus gastroscope was passed through posterior oropharynx. Retroflexion of the scope confirmed a Hill grade 1 lower esophageal valve. The stomach had been desufflated. No evidence of leaks were found of the esophagus or stomach. The GI tract with desufflated This concluded the endoscopic portion of the case. No evidence of gastric ulcers were identified. The robot was undocked from the patient. I re-scrubbed into the case. All instruments and pneumoperitoneum and specimens were evacuated from the abdominal cavity. Incisions were reapproximated using 4-0 Monocryl in an interrupted subcuticular fashion. Liquid glue was applied to the skin. Local anesthetic was infiltrated in all wounds for postop analgesia. Multiple intra-abdominal films were obtained. At the end of the procedure, needle, sponge, and instrument count was verified correct by the rn surgical. The patient had tolerated the procedure well and was taken to the postanesthesia unit in stable condition. Plan - Discharge Summary Discharge Rx Participant: No New Discharge Prescriptions: No Action metFORMIN HCL [Metformin HCl] 500 mg PO BID Insulin Detemir (Levemir) [Levemir] 60 unit SQ HS Omeprazole 40 mg PO HS INSULIN ASPART (NovoLOG) [NovoLOG (formulary)] See Protocol SQ AC-TID PRN PRN Reason: Blood Sugar - High Aspirin [Adult Low Dose Aspirin EC] 81 mg PO QAM Atorvastatin [Lipitor] 40 mg PO DAILY Spironolactone [Aldactone] 25 mg PO DAILY Metoprolol Tartrate [Lopressor] 25 mg PO DAILY Lisinopril [Zestril] 2.5 mg PO DAILY Semaglutide [Ozempic] 1 mg SQ WE Amantadine HCl [Amantadine] 50 mg PO HS Amantadine HCl [Amantadine] 100 mg PO DAILY Metoclopramide HCl [Reglan] 10 mg PO DAILY Discharge Medication List Insulin Detemir (Levemir) [Levemir] 60 unit SQ HS 03/11/17 [History] metFORMIN HCL [Metformin HCl] 500 mg PO BID 03/11/17 [History] INSULIN ASPART (NovoLOG) [NovoLOG (formulary)] See Protocol SQ AC-TID PRN 07/20/17 [History] Omeprazole 40 mg PO HS 07/20/17 [History] Aspirin [Adult Low Dose Aspirin EC] 81 mg PO QAM 05/31/18 [History] Atorvastatin [Lipitor] 40 mg PO DAILY 05/31/18 [History] Lisinopril [Zestril] 2.5 mg PO DAILY 07/12/18 [History] Metoprolol Tartrate [Lopressor] 25 mg PO DAILY 07/12/18 [History] Spironolactone [Aldactone] 25 mg PO DAILY 07/12/18 [History] Semaglutide [Ozempic] 1 mg SQ WE 08/22/19 [History] Amantadine HCl [Amantadine] 50 mg PO HS 03/22/20 [History] Amantadine HCl [Amantadine] 100 mg PO DAILY 03/22/20 [History] Metoclopramide HCl [Reglan] 10 mg PO DAILY 03/22/20 [History]
[2020-03-29] MEDS ORDERED: ONDANSETRON 4 MG/2 ML VIAL IVP PRN (14:06)
[2020-03-29 14:20] LABS: Glucose,Whole Blood 176 mg/dL (75-99)
[2020-03-29 15:27] LABS: Glucose,Whole Blood 148 mg/dL (75-99)
[2020-03-29 16:58] LABS: Glucose,Whole Blood 185 mg/dL (75-99)
[2020-03-29] MEDS: KETOROLAC 30 MG/ML 1 ML VIAL IVP SCH (17:39)
[2020-03-29] MEDS: METOCLOPRAMIDE 5 MG/ML 2 ML VIAL IVP SCH (17:40)
[2020-03-29] MEDS: DEXAMETHASONE SOD PHOSPHATE 4 MG/ML 1 ML VIAL IV SCH (17:40)
[2020-03-29] MEDS: SIMETHICONE 40 MG/0.6 ML DROPS 2,000 MG/30 ML BOTTLE PO SCH ×2 (17:41→21:10)
[2020-03-29] MEDS ORDERED: ONDANSETRON 4 MG/2 ML VIAL IVP SCH (18:00)
[2020-03-29 20:39] LABS: Glucose,Whole Blood 192 mg/dL (75-99)
[2020-03-29] MEDS: ACETAMINOPHEN ORAL SUSP (PEDS) 3,840 MG/120 ML BOTTLE PO SCH (21:01)
[2020-03-29] MEDS: INSULIN ASPART (NovoLOG) 100 UNIT/ML VIAL SQ SCH (21:10)
[2020-03-30] MEDS: KETOROLAC 30 MG/ML 1 ML VIAL IVP SCH ×3 (01:26→12:35)
[2020-03-30] MEDS: DEXAMETHASONE SOD PHOSPHATE 4 MG/ML 1 ML VIAL IV SCH ×3 (01:27→12:35)
[2020-03-30] MEDS: METOCLOPRAMIDE 5 MG/ML 2 ML VIAL IVP SCH ×3 (01:27→12:36)
[2020-03-30] MEDS: ACETAMINOPHEN ORAL SUSP (PEDS) 3,840 MG/120 ML BOTTLE PO SCH ×3 (01:27→12:35)
[2020-03-30] MEDS: LACTATED RINGERS 1,000 ML IV SCH (06:11)
[2020-03-30 08:02] LABS: Glucose,Whole Blood 217 mg/dL (75-99)
--- NOTE | 2020-03-30 08:06 | FL ---
Single contrast esophagram EXAMINATION TYPE: FL esophagus cervic/pharynx DATE OF EXAM: 03/30/2020 8:00 AM COMPARISON: NONE CLINICAL HISTORY: Status post Jay fundoplication post op pierre. rule out leak/obstruction. 26 sec fl time. The patient ingested contrast without difficulty or delay. Noted are changes of Jay fundoplicatio n. There is no evidence for leak or obstruction. Small amount of residual contrast within the distal esophagus. IMPRESSION: Post-surgical change of Jay fundoplication without evidence for leak or obstruction.
[2020-03-30] MEDS: INSULIN ASPART (NovoLOG) 100 UNIT/ML VIAL SQ SCH ×2 (08:19→12:39)
[2020-03-30 08:44] LABS: Basophils % (A) 0 %; Eosinophils # (A) 0.1 k/uL (0-0.7); Eosinophils % (A) 1 %; HCT 42.5 % (39.0-53.0); HGB 13.4 gm/dL (13.0-17.5); Lymphocytes # (A) 0.8 k/uL (1.0-4.8); Lymphocytes % (A) 7 %; MCH 26.5 pg (25.0-35.0); MCHC 31.5 g/dL (31.0-37.0); MCV 84.3 fL (80.0-100.0); Mean Platelet Volume 7.5; Monocytes # (A) 0.3 k/uL (0-1.0); Monocytes % (A) 2 %; Neutrophils # (A) 10.8 k/uL (1.3-7.7); Neutrophils % (A) 90 %; Platelet Count 323 k/uL (150-450); RBC 5.05 m/uL (4.30-5.90); RDW 14.7 % (11.5-15.5)
[2020-03-30 08:54] LABS: African American GFR (CKD) >90 (>60 ml/min/1.73 sqM); Anion Gap 10 mmol/L; Blood Urea Nitrogen 25 mg/dL (9-20); Carbon Dioxide 20 mmol/L (22-30); Chloride 101 mmol/L (98-107); Glucose 198 mg/dL (74-99); Non-African American GFR(CKD) >90 (>60 ml/min/1.73 sqM); Potassium 5.2 mmol/L (3.5-5.1); Sodium 131 mmol/L (137-145)
[2020-03-30] MEDS ORDERED: SPIRONOLACTONE 25 MG TAB PO SCH (09:00)
[2020-03-30] MEDS ORDERED: PANTOPRAZOLE 40 MG/10 ML VIAL IVP SCH (09:00)
[2020-03-30] MEDS ORDERED: METOPROLOL TARTRATE 25 MG TAB PO SCH (09:00)
[2020-03-30] MEDS: SIMETHICONE 40 MG/0.6 ML DROPS 2,000 MG/30 ML BOTTLE PO SCH (09:33)
[2020-03-30 10:02] VITALS: BP 113/64; PULSE 97; RESP 16; TEMP 98.2
--- NOTE | 2020-03-30 10:24 | P.DS ---
Providers Date of admission: 03/29/2020 Expected date of discharge: 03/30/20 Attending physician: Nicci Rankin Primary care physician: Lam Garcia - Discharge Diagnosis(es) (1) Paraesophageal hernia Current Visit: Yes Status: Acute (2) Gastroesophageal reflux Current Visit: Yes Status: Acute (3) Parkinson disease Current Visit: Yes Status: Acute (4) Diabetes mellitus type 2 with complications Current Visit: Yes Status: Acute (5) Gastroparesis Current Visit: Yes Status: Acute (6) Ulcerative colitis Current Visit: No Status: Acute Hospital Course: The patient is a 69-year-old male status post laparoscopic hiatal hernia repair, 03/29/2020. Postoperatively, he is tolerating liquids. Esophagram was unremarkable. Post hiatal hernia diet reviewed in detail including continue liquid diet. Labs reviewed demonstrated elevated potassium secondary to medications which is adjusted. Patient to follow-up in the office within 5 days. All questions addressed. Patient stable prior to discharge. Pertinent Studies: Esophagram without leak or obstruction Patient Condition at Discharge: Stable Plan - Discharge Summary Discharge Rx Participant: No New Discharge Prescriptions: New Bisacodyl [Dulcolax] 5 mg PO DAILY PRN #10 tablet. PRN Reason: Constipation Simethicone 40 mg/0.6 ml Drops [Mylicon Drops] 40 mg PO PCHS PRN #30 ml PRN Reason: Gas Ondansetron Odt [Zofran Odt] 4 mg PO Q8HR PRN #9 tab PRN Reason: Nausea Continue metFORMIN HCL [Metformin HCl] 500 mg PO BID Insulin Detemir (Levemir) [Levemir] 60 unit SQ HS INSULIN ASPART (NovoLOG) [NovoLOG (formulary)] See Protocol SQ AC-TID PRN PRN Reason: Blood Sugar - High Aspirin [Adult Low Dose Aspirin EC] 81 mg PO QAM Atorvastatin [Lipitor] 40 mg PO DAILY Metoprolol Tartrate [Lopressor] 25 mg PO DAILY Lisinopril [Zestril] 2.5 mg PO DAILY Semaglutide [Ozempic] 1 mg SQ WE Amantadine HCl [Amantadine] 50 mg PO HS Amantadine HCl [Amantadine] 100 mg PO DAILY Metoclopramide HCl [Reglan] 10 mg PO DAILY Discontinued Omeprazole 40 mg PO HS Spironolactone [Aldactone] 25 mg PO DAILY Discharge Medication List Insulin Detemir (Levemir) [Levemir] 60 unit SQ HS 03/11/17 [History] metFORMIN HCL [Metformin HCl] 500 mg PO BID 03/11/17 [History] INSULIN ASPART (NovoLOG) [NovoLOG (formulary)] See Protocol SQ AC-TID PRN 07/20/17 [History] Aspirin [Adult Low Dose Aspirin EC] 81 mg PO QAM 05/31/18 [History] Atorvastatin [Lipitor] 40 mg PO DAILY 05/31/18 [History] Lisinopril [Zestril] 2.5 mg PO DAILY 07/12/18 [History] Metoprolol Tartrate [Lopressor] 25 mg PO DAILY 07/12/18 [History] Semaglutide [Ozempic] 1 mg SQ WE 08/22/19 [History] Amantadine HCl [Amantadine] 50 mg PO HS 03/22/20 [History] Amantadine HCl [Amantadine] 100 mg PO DAILY 03/22/20 [History] Metoclopramide HCl [Reglan] 10 mg PO DAILY 03/22/20 [History] Bisacodyl [Dulcolax] 5 mg PO DAILY PRN #10 tablet. 03/30/20 [Rx] Ondansetron Odt [Zofran Odt] 4 mg PO Q8HR PRN #9 tab 03/30/20 [Rx] Simethicone 40 mg/0.6 ml Drops [Mylicon Drops] 40 mg PO PCHS PRN #30 ml 03/30/20 [Rx] Follow up Appointment(s)/Referral(s): Nicci Rankin MD [STAFF PHYSICIAN] - 04/03/20 Patient Instructions/Handouts: Hiatal Hernia (DC) Activity/Diet/Wound Care/Special Instructions: Liquid diet only. No carbonated beverages. No straws. No lifting over 4 pounds in 4 weeks, Apr. May shower. No bath tub soaks for 2 weeks until April 13. May take [id number] Tylenol for pain. Do not remove scopolamine patch for 3 days, if present Discharge Disposition: HOME SELF-CARE
[2020-03-30 12:09] LABS: Glucose,Whole Blood 210 mg/dL (75-99)
[2020-03-30 13:09] VITALS: BMI 24.6
== END 2020-03-30 13:02 | disposition home or self-care (01) ==
LOC: OR 08:46 → 4SSUR 13:47 → OR 03-30 13:02
PROVIDERS: ATTEND Surgery Plastic and Reconstructive Surgery
DX: K44.0 Diaphragmatic hernia with obstruction, without gangrene (principal); K21.9 Gastro-esophageal reflux disease without esophagitis; K31.84 Gastroparesis; E11.9 Type 2 diabetes mellitus without complications; E78.5 Hyperlipidemia, unspecified; G20 Parkinson's disease; K51.90 Ulcerative colitis, unspecified, without complications; I25.10 Atherosclerotic heart disease of native coronary artery without angina pectoris; I25.5 Ischemic cardiomyopathy; F03.90 Unspecified dementia, unspecified severity, without behavioral disturbance, psychotic disturbance, mood disturbance, and anxiety; Z95.5 Presence of coronary angioplasty implant and graft; R33.9 Retention of urine, unspecified; I10 Essential (primary) hypertension; M19.90 Unspecified osteoarthritis, unspecified site; R41.3 Other amnesia; H91.90 Unspecified hearing loss, unspecified ear; Z79.4 Long term (current) use of insulin; Z79.82 Long term (current) use of aspirin; Z79.899 Other long term (current) drug therapy; Z87.891 Personal history of nicotine dependence; Z98.1 Arthrodesis status; Z98.890 Other specified postprocedural states; Z85.828 Personal history of other malignant neoplasm of skin; Z85.820 Personal history of malignant melanoma of skin; Z87.11 Personal history of peptic ulcer disease; Z90.49 Acquired absence of other specified parts of digestive tract; Z80.6 Family history of leukemia; Z80.9 Family history of malignant neoplasm, unspecified
CPT/HCPCS: 80048 ×2; 85025 ×2; 74210; 43282; C1781; J1644; J1100 ×3; J2710; J2765 ×2; J0690 ×2; J2405; J2001; J3010; J1885 ×2; J1170; J2370; J0330; J2704; C9113; Q9967

== ENCOUNTER → 2020-04-12 | Outpatient (CLI) | payer MEDICARE ==
[2020-04-12 21:06] LABS: African American GFR (CKD) 89.2 (60.0-200.0); Potassium 4.7 mmol/L (3.5-5.5)
== END | disposition home or self-care (01) ==
LOC: LABWHC1 11:59
PROVIDERS: ATTEND Surgery Plastic and Reconstructive Surgery
DX: E87.5 Hyperkalemia (principal)
CPT/HCPCS: 36415; 80048

== ENCOUNTER → 2020-07-04 | Outpatient (CLI) | payer MEDICARE ==
--- NOTE | 2020-07-04 14:02 | EEG ---
ELECTROENCEPHALOGRAM REPORT DATE OF SERVICE: 07/04/2020 PREAMBLE: This is a 69-year-old male with a diagnosis of Parkinson's disease and dementia. EEG was ordered for "symptomatic epilepsy." Current medications not available. EEG FINDINGS: This is a 21 channel, routine EEG recording in a patient utilizing 10-20 international system with referential and bipolar montages. Background consists of a well-developed, moderately well regulated, mixed frequencies of with low-voltage mixed alpha and beta activity seen in bihemispheric region. The background seems to be reactive to eye opening and closing. Photic driving response was seen with some flash frequencies. Mild drowsiness was seen with appearance of bilaterally symmetric theta frequency rhythm, but deeper stages of sleep was not obtained. No focal or generalized epileptiform activity was seen. EKG rhythm lead revealed no obvious arrhythmia. IMPRESSION: This is a normal awake and drowsy EEG. No focal, lateralized, or epileptiform activity was seen. Presence of excessive amount of low-voltage fast frequency beta is suggestive of medication effect. MMODL / IJN: [id number] /
== END | disposition home or self-care (01) ==
LOC: NEUROMAIN 07:37
PROVIDERS: ATTEND Psychiatry & Neurology Vascular Neurology
DX: G20 Parkinson's disease (principal); G40.109 Localization-related (focal) (partial) symptomatic epilepsy and epileptic syndromes with simple partial seizures, not intractable, without status epilepticus; R26.89 Other abnormalities of gait and mobility
CPT/HCPCS: 95816

== ENCOUNTER 2020-10-17 07:19 | Day surgery (SDC) | payer MEDICARE ==
[2020-10-15 11:19] VITALS: BMI 24.4
[~2020-10-17 07:19] MED LIST changes: -DEXAMETHASONE SOD PHOSPHATE 10 MG/ML 1 ML VIAL IV ONE; -HEPARIN SODIUM,PORCINE 5,000 UNIT/ML 1 ML VIAL SQ ONE; -HYDROmorphone 0.5 MG/0.5 ML SYRINGE IVP PRN; +LACTATED RINGERS 1,000 ML IV SCH; +LIDOCAINE 1% (10MG/ML) FOR IV START INTRADERMA PRN; -ONDANSETRON 4 MG/2 ML VIAL IVP ONE
[2020-10-17 07:42] VITALS: RESP 16; TEMP 96.7
[2020-10-17 07:55] LABS: Glucose,Whole Blood 175 mg/dL (75-99)
[2020-10-17] MEDS ORDERED: PROPOFOL 10 MG/ML 20 ML VIAL IV ONE (07:55)
--- NOTE | 2020-10-17 08:18 | P.PCN ---
Date of Procedure: 10/17/20 Procedure(s) Performed: BRIEF HISTORY: Patient is a 70-year-old pleasant male scheduled for an elective colonoscopy as a part of surveillance of long-standing history of ulcerative colitis diagnosed in the . He remains in clinical remission. Lately has been having severe constipation and lower abdominal pain. He underwent sigmoid colectomy by Dr. Martinez 2 years ago for multiple colon polyps. PROCEDURE PERFORMED: Colonoscopy With biopsy and snare polypectomy. PREOPERATIVE DIAGNOSIS: Long-standing history of ulcerative colitis. IV sedation per Anesthesia. PROCEDURE: After informed consent was obtained, the patient, was brought into the endoscopy unit. IV sedation was administered by Anesthesia under continuous monitoring. Digital rectal examination was normal. Initially the Olympus CF-160 flexible video colonoscope was then inserted in the rectum, gradually advanced into the cecum without any difficulty. Careful examination was performed as the scope was gradually being withdrawn. Ileocecal valve and the appendiceal orifice were visualized and appeared normal. Prep was excellent. Mucosa of the cecum, appeared normal. Ascending colon there was a 1 cm flat polyp removed by snare polypectomy. Mucosa of the rest of the ascending colon, transverse colon, descending colon, sigmoid colon, and rectum appeared normal. He was active colitis noted. However there were multiple scattered pseudopolyps noted in the distal transverse colon and descending colon and multiple random biopsies were done from the cecum to rectum at every 10 cm into well. Evidence of anastomosis located at 35 cm from the anal verge there appeared widely patent and normal. Retroflexion was performed in the rectum and no lesions were seen. The patient tolerated the procedure well. IMPRESSION: No evidence of active colitis Scattered pseudopolyps noted in the descending colon and distal transverse colon 1 cm flat ascending colon polyp status post polypectomy RECOMMENDATIONS: Findings of this examination were discussed with the patient as well as his family. He was advised to follow with the biopsy results. In the meantime he'll be started on MiraLAX 1 scoop twice daily. If the biopsies do not show any evidence of dysplasia he can have a repeat surveillance colonoscopy every 2 years..
[2020-10-17 08:40] VITALS: BP 122/74; PULSE 76
== END 2020-10-17 08:53 | disposition home or self-care (01) ==
LOC: ORWHC2ENDO 07:19
PROVIDERS: ATTEND Internal Medicine Gastroenterology
DX: D12.2 Benign neoplasm of ascending colon (principal); K51.90 Ulcerative colitis, unspecified, without complications; K21.9 Gastro-esophageal reflux disease without esophagitis; I25.10 Atherosclerotic heart disease of native coronary artery without angina pectoris; I10 Essential (primary) hypertension; E78.49 Other hyperlipidemia; Z95.5 Presence of coronary angioplasty implant and graft; E11.9 Type 2 diabetes mellitus without complications; F03.90 Unspecified dementia, unspecified severity, without behavioral disturbance, psychotic disturbance, mood disturbance, and anxiety; Z98.0 Intestinal bypass and anastomosis status; Z97.2 Presence of dental prosthetic device (complete) (partial); Z79.4 Long term (current) use of insulin; Z79.899 Other long term (current) drug therapy; Z79.82 Long term (current) use of aspirin
CPT/HCPCS: 88305; 45380; 45385; J2704

== ENCOUNTER → 2021-03-14 | Outpatient (CLI) | payer MEDICARE ==
--- NOTE | 2021-03-15 09:31 | MR ---
EXAMINATION TYPE: MR cervical spine wo/w con DATE OF EXAM: 03/14/2021 COMPARISON: Cervical spine CT dated 06/13/2017 HISTORY: Neck pain down both arms for 2 months. TECHNIQUE: Multiplanar, multisequence images of the cervical spine were acquired utilizing 7.5 mL intravenous Ga davist gadolinium contrast. Diffusion weighted imaging was performed. C2-C3: Small posterior disc protrusion causes anterior mass effect on the thecal sac. There is facet arthropathy, uncovertebral joint hypertrophy, left-sided foraminal encroachment greater than right C3-C4: Posterior extension of endplates causes anterior mass effect on the thecal sac. Uncovertebral joint hypertrophy and facet arthropathy results in bilateral foraminal encroachment. C4-C5: Foraminal encroachment is significant on the right greater than left, there is uncovertebral j oint hypertrophy and facet arthropathy. C5-C6: Bilateral foraminal encroachment due to uncovertebral joint hypertrophy and facet arthropathy. Posterior extension of endplates causes mild anterior mass effect on the thecal sac. C6-C7: Posterior extension endplate disc complex causes anterior mass effect on the thecal sac. Uncov ertebral joint hypertrophy results in foraminal encroachment left greater than right, associated face t arthropathy is noted C7-T1: No evidence for degenerative disc disease. No disc bulge/herniation or protrusion. No Canal stenosis. Foramina are patent bilaterally. Patient is post anterior cervical fusion and discectomy at C3-C6, there is stable alignment. Disc spa angelia are obliterated at the site of the anterior cervical fusion and discectomy. Arthropathy is presen t at C1-C2 anterior margin. There is no severe spinal stenosis, narrowing greatest at C6-7 and C3-4 b ut only mild, artifact is present due to patient's hardware. Cervical spinal cord is of normal signal . Craniovertebral junction relationships are within normal limits. There is enhancement involving t he facet at C2-3 on the left, axial image #49 and 50. Calcified nodes are present in the left neck. IMPRESSION: Multilevel foraminal encroachment. Postop changes. Degenerative disc disease. Indeterminate enhanceme nt involving the facet posteriorly on the left at C2-3, correlate for prior intervention, findings co uld be due to underlying arthropathy, no bone destruction to suggest infection, correlate.
== END | disposition home or self-care (01) ==
LOC: RADMRIMAIN 14:32
PROVIDERS: ATTEND Orthopaedic Surgery Orthopaedic Surgery of the Spine
DX: M50.30 Other cervical disc degeneration, unspecified cervical region (principal); M99.71 Connective tissue and disc stenosis of intervertebral foramina of cervical region
CPT/HCPCS: 72156; A9585

== ENCOUNTER → 2021-08-02 | Outpatient (CLI) | payer MEDICARE ==
[2021-08-02 15:07] LABS: Basophils # (A) 0.04 X 10*3/uL (0.00-0.10); Basophils % (A) 0.6 %; Eosinophils # (A) 0.46 X 10*3/uL (0.04-0.35); Eosinophils % (A) 6.8 %; HCT 42.4 % (39.6-50.0); HGB 13.6 g/dL (13.0-17.0); Lymphocytes # (A) 1.69 X 10*3/uL (0.90-5.00); Lymphocytes % (A) 24.9 %; MCHC 32.1 g/dL (32.0-37.0); MCV 87.4 fL (80.0-97.0); Mean Platelet Volume 10.1 fL (9.5-12.2); Monocytes # (A) 0.67 X 10*3/uL (0.20-1.00); Monocytes % (A) 9.9 %; Neutrophils # (A) 3.93 X 10*3/uL (1.80-7.70); Neutrophils % (A) 57.7 %; Platelet Count 251 X 10*3/uL (140-440); RBC 4.85 X 10*6/uL (4.40-5.60); RDW 14.3 % (11.5-14.5)
[2021-08-02 16:42] LABS: ALT 14 U/L (10-49); AST 24 U/L (14-35); African American GFR (CKD) 88.6 (60.0-200.0); Albumin 4.4 g/dL (3.8-4.9); Albumin/Globulin Ratio 1.76 (1.60-3.17); Alkaline Phosphatase 37 U/L (41-126); Blood Urea Nitrogen 15.1 mg/dL (9.0-27.0); Carbon Dioxide 25.3 mmol/L (21.6-31.8); Chloride 100 mmol/L (96-109); Globulin 2.5 g/dL (1.6-3.3); Glucose 135 mg/dL (70-110); Non-African American GFR(CKD) 76.5 (60.0-200.0); Potassium 4.8 mmol/L (3.5-5.5); Sodium 136 mmol/L (135-145); Total Protein 6.9 g/dL (6.2-8.2); VLDL Calculation 14.44 mg/dL (5.00-40.00)
== END | disposition home or self-care (01) ==
LOC: LABWHC1 08:16
PROVIDERS: ATTEND Family Medicine
DX: E11.65 Type 2 diabetes mellitus with hyperglycemia (principal); I25.118 Atherosclerotic heart disease of native coronary artery with other forms of angina pectoris
CPT/HCPCS: 36415; 80053; 80061; 84153; 84443; 85025

== ENCOUNTER → 2021-12-11 | Outpatient (CLI) | payer MEDICARE | END | disposition home or self-care (01) | LOC: LABWHC1 13:50 | PROVIDERS: ATTEND Psychiatry & Neurology Neurology | DX: G20 Parkinson's disease (principal); G62.9 Polyneuropathy, unspecified; Z79.899 Other long term (current) drug therapy | CPT/HCPCS: 36415; 82306; 82550; 82607; 83036 ==

== ENCOUNTER → 2022-10-11 | Outpatient (CLI) | payer MEDICARE ==
--- NOTE | 2022-10-12 04:39 | MR ---
EXAMINATION TYPE: MR cervical spine wo/w con DATE OF EXAM: 10/11/2022 COMPARISON: 03/14/2021 HISTORY: Neck pain, headaches, BUE radiculopathy, prior surgery. CONTRAST: Standard multiplanar, multisequence MRI departmental protocol images were obtained without contrast a nd with 7.5 mL intravenous Gadavist gadolinium contrast. The cervical vertebra have Normal alignment. There is metal artifact from anterior fusion surgery in the C3-C6 vertebra. Brainstem is intact. Spinal canal is narrowed to 7.5 mm at T3-T4 level. Cervical cord shows no edema. No paraspinal mass. The posterior elements are intact. No focal bone destruction . There is mild posterior disc bulging at C6-7 without impingement on the spinal cord. IMPRESSION: Multilevel anterior fusion surgery. No significant spinal stenosis. No change compared to old exam
== END | disposition home or self-care (01) ==
LOC: RADMRIMAIN 13:46
PROVIDERS: ATTEND Orthopaedic Surgery Orthopaedic Surgery of the Spine
DX: M47.812 Spondylosis without myelopathy or radiculopathy, cervical region (principal); Z98.1 Arthrodesis status
CPT/HCPCS: 72156; A9585

== ENCOUNTER → 2022-12-25 | Outpatient (CLI) | payer MEDICARE ==
--- NOTE | 2022-12-31 11:29 | MR ---
EXAMINATION TYPE: MR lumbar spine wo con DATE OF EXAM: 12/25/2022 4:03 PM COMPARISON: NONE HISTORY: Low back pain into both legs Multiplanar, MultiSpin echo imaging of the lumbar spine was performed. L1-L2: Postsurgical change of decompressive laminectomy with pedicular screws in place. No evidence f or recurrent or residual herniation or central stenosis. Foramina are patent. L2-L3: Postsurgical change of decompressive laminectomy with pedicular screws in place. No evidence f or recurrent or residual herniation or central stenosis. Foramina are patent. L3-L4: Postsurgical change of decompressive laminectomy with pedicular screws in place. No evidence f or recurrent or residual herniation or central stenosis. Foramina are patent. L4-L5: Decompressive laminectomy with pedicular screws. Anterolisthesis L4 and L5 measuring 4 mm. Pos terior disc bulge. No evidence for recurrent or residual disease. L5-S1: Decompressive laminectomy. Normal alignment. No evidence for stenosis or herniation. Foramina are patent. Lumbar segments are intact. No paraspinal masses are identified. Conus medullaris has a normal appe arance. 10 cm craniocaudal dimension fluid collection within the posterior soft tissues postoperative in nature. IMPRESSION: 1. Extensive postoperative change without evidence for recurrent or residual disease.
== END | disposition home or self-care (01) ==
LOC: RADMRIMAIN 15:22
PROVIDERS: ATTEND Orthopaedic Surgery Orthopaedic Surgery of the Spine
DX: M47.26 Other spondylosis with radiculopathy, lumbar region (principal); M47.22 Other spondylosis with radiculopathy, cervical region; M47.24 Other spondylosis with radiculopathy, thoracic region; M79.12 Myalgia of auxiliary muscles, head and neck; R26.9 Unspecified abnormalities of gait and mobility; Z79.01 Long term (current) use of anticoagulants; Z98.890 Other specified postprocedural states
CPT/HCPCS: 72148

== ENCOUNTER → 2023-12-10 | Outpatient (CLI) | payer MEDICARE ==
--- NOTE | 2023-12-10 18:05 | US ---
EXAMINATION TYPE: US arterial LE single level DATE OF EXAM: 12/10/2023 2:53 PM CLINICAL INDICATION: Male, 73 years old with history of E11.59,I73.9; Pt states feet/leg numbness History of: Smoker: Previous Hypertension: No Diabetic: Yes Hyperlipidemia: No TIA/CVA: No Previous Vascular Surgery: Prev heart stents Vascular Ulcers: No Doppler Waveforms: Right: Multiphasic Left Multiphasic Right Brachial Pressure: 148 Left Brachial Pressure: 152 Ankle-Brachial Indices: Right: 1.2 Left: 1.1 (Vessel hardening > 1.4; Normal 0.9 - 1.4, Moderate 0.7 - 0.9, Severe 0.5-0.7) Toe Brachial Indices: Right: 0.5 Left: 0.5 IMPRESSION: Ankle-brachial indices within normal limits bilaterally.
== END | disposition home or self-care (01) ==
LOC: RADUSWWP 14:28
PROVIDERS: ATTEND Family Medicine
DX: E11.59 Type 2 diabetes mellitus with other circulatory complications (principal); I73.9 Peripheral vascular disease, unspecified; Z87.891 Personal history of nicotine dependence
CPT/HCPCS: 93922

== ENCOUNTER → 2024-02-25 | Outpatient (CLI) | payer MEDICARE ==
--- NOTE | 2024-02-25 20:00 | MR ---
EXAMINATION TYPE: MR cervical spine wo con DATE OF EXAM: 02/25/2024 COMPARISON: None HISTORY: 73-year-old male headaches and bilateral upper/lower extremity pain and weakness. M54.50 R2 6.9 M47.817 M54.16 TECHNIQUE: Multiplanar, multisequence images of the cervical spine were acquired without contrast. FINDINGS: No craniocervical junction abnormality, predental space widening, or prevertebral soft tissue swellin g. Mild ligamentous thickening at the C1 dens articulation. Postsurgical change of C3-C6 ACDF. There is diffuse mild congenital spinal canal stenosis along the f used levels with AP canal dimension of 8 mm. Hyperostotic changes of the facet and uncovertebral join ts continues to mild neuroforaminal stenosis throughout. Above the fusion at C2-C3, there is desiccated and mild bulging disc along with mild ligamentum flavu m thickening further narrowing the spinal canal down to 7 mm AP. No cord compression here. Uncoverteb ral joint and facet arthropathy contributes to mild bilateral neural foraminal stenosis. Below the fusion at C6-C7, desiccated and bulging disc along with ligamentum flavum thickening and fa cet arthropathy is present. This narrows the spinal canal down to 7 mm AP with abutment of the ventra l cord but no abel cord compression. Hypertrophic facet and uncovertebral joint arthropathy contrib utes to moderate left and mild right neuroforaminal stenosis here. There is artifact projecting over the cord without convincing T2-weighted cord signal abnormality. No prevertebral paravertebral soft tissue anomaly seen. Alignment is maintained. No suspicious bone marrow replacement. IMPRESSION: 1. Status post C3-C6 ACDF. There is underlying congenital spinal canal stenosis with AP canal dimensi on of 8 mm. 2. Moderate spondylotic change both above and below the fusion. At both of these levels (C2-C3 and C6 /C7) there is further mild to moderate spinal canal stenosis with AP canal dimension narrowed to 7 mm . No abel cord compression seen. 3. At C6/C7, there is moderate left and mild right neural foraminal stenosis. Variable mild neurofora elijah narrowing at other levels. 4. Excessive artifact projecting over the cord. No convincing myelopathic cord signal change.
--- NOTE | 2024-03-04 23:33 | MR ---
EXAMINATION TYPE: MR lumbar spine wo con DATE OF EXAM: 02/25/2024 COMPARISON: 12/25/2022 HISTORY: 73-year-old male M54.50 R26.9 M47.817 M54.16, headaches, bilateral upper and lower extremity pain and weakness TECHNIQUE: Multiplanar, multisequence images of the lumbar spine were acquired without IV contrast. FINDINGS: Postsurgical change L2-L4 posterior and interbody lumbar fusion. 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 Corresponding laminectomy change. Ongoing fluid collection along the laminectomy bed and posterior midline measuring up to 10.4 cm cran iocaudal by 6.3 cm wide by 3.1 cm AP. Some associated septations and some retained debris remain espinoza lar. Fixed grade 1 anterolisthesis L4-L5. Mild degenerative disc disease above the fusion down to the L2 level. Bulging discs, disc desiccation is present as well as ligamentum flavum thickening greatest in the L1-L2. Overall moderate focal spinal canal stenosis here at L1-L2. Mild overall spinal canal narrowing T10-T 11 and T11-T12. On the right, moderate neuroforaminal stenoses at L3-L4 and L4-L5 and mild at L1-L2 and L2-L3. On the left, mild to moderate neural foraminal stenoses L3-L4 and L4-L5. Mild at additional levels. There is some residual posterior disc bulging with posterior annular fissure at the fused L2-L3 level , similar to prior. No prevertebral or paravertebral soft tissue abnormality otherwise seen. IMPRESSION: 1. Status post L2-L4 posterior and interbody lumbar fusion. 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 Corresponding laminectomies. 2. Mildly complex fluid collection along the laminectomy bed and posterior midline is similar at 10.4 x 6.3 x 3.1 cm. 3. Fixed grade 1 anterolisthesis L4-L5. Moderate neuroforaminal stenosis on the right at L3-L4 and L4 -L5. Mild to moderate on the left at these levels. 4. Ligamentum flavum thickening with hypertrophic facet arthropathy and mild degenerative disc diseas e above the fusion and in the lower thoracic spine. Changes result in moderate focal spinal canal teo nosis at L1-L2 and mild at both T10-T11 and T11-T12.
== END | disposition home or self-care (01) ==
LOC: RADMRIMAIN 11:32
PROVIDERS: ATTEND Orthopaedic Surgery Orthopaedic Surgery of the Spine
DX: M47.27 Other spondylosis with radiculopathy, lumbosacral region (principal); M47.24 Other spondylosis with radiculopathy, thoracic region; M47.22 Other spondylosis with radiculopathy, cervical region; M48.061 Spinal stenosis, lumbar region without neurogenic claudication; M48.04 Spinal stenosis, thoracic region; M51.15 Intervertebral disc disorders with radiculopathy, thoracolumbar region; M24.28 Disorder of ligament, vertebrae; M43.16 Spondylolisthesis, lumbar region; M99.71 Connective tissue and disc stenosis of intervertebral foramina of cervical region; M48.02 Spinal stenosis, cervical region; R26.9 Unspecified abnormalities of gait and mobility; M62.830 Muscle spasm of back; S39.012D Strain of muscle, fascia and tendon of lower back, subsequent encounter; M16.12 Unilateral primary osteoarthritis, left hip; S70.02XD Contusion of left hip, subsequent encounter; M79.605 Pain in left leg; M79.604 Pain in right leg; Z79.01 Long term (current) use of anticoagulants; Z98.1 Arthrodesis status; X58.XXXD Exposure to other specified factors, subsequent encounter
CPT/HCPCS: 72141; 72148

== ENCOUNTER → 2024-09-22 | Outpatient (CLI) | payer MEDICARE ==
[2024-09-22 16:09] LABS: Chol/HDL Ratio 3.08 Ratio; LDL Cholesterol,Calculated 64.8 mg/dL (0.0-131.0)
[2024-09-22 16:10] LABS: ALT 7 U/L (10-49); AST 18 U/L (14-35); Albumin 4.5 g/dL (3.8-4.9); Albumin/Globulin Ratio 1.96 Ratio (1.60-3.17); Alkaline Phosphatase 36 U/L (41-126); Blood Urea Nitrogen 19.8 mg/dL (9.0-27.0); Calcium 10.3 mg/dL (8.7-10.3); Carbon Dioxide 27.6 mmol/L (21.6-31.8); Chloride 103 mmol/L (96-109); Globulin 2.3 g/dL (1.6-3.3); Glucose 180 mg/dL (70-110); Potassium 4.9 mmol/L (3.5-5.5); Prostate Specific Antigen 0.68 ng/mL (0.000-6.500); Sodium 139 mmol/L (135-145); Total Bilirubin 0.4 mg/dL (0.3-1.2); Total Protein 6.8 g/dL (6.2-8.2)
[2024-09-22 16:13] LABS: Basophils # (A) 0.05 X 10*3/uL (0.00-0.10); Basophils % (A) 0.9 %; Eosinophils # (A) 0.25 X 10*3/uL (0.04-0.35); Eosinophils % (A) 4.4 %; HCT 43.7 % (39.6-50.0); Lymphocytes # (A) 1.74 X 10*3/uL (0.90-5.00); Lymphocytes % (A) 30.4 %; MCH 28.1 pg (27.0-32.0); MCV 87.6 FL (80.0-97.0); Mean Platelet Volume 10.2 FL (9.5-12.2); Monocytes # (A) 0.53 X 10*3/uL (0.20-1.00); Monocytes % (A) 9.2 %; NRBC Per 100 WBC 0 X 10*3/uL (0.00-0.01); Neutrophils # (A) 3.15 X 10*3/uL (1.80-7.70); Neutrophils % (A) 54.9 %; Platelet Count 231 X 10*3/uL (140-440); RBC 4.99 X 10*6/uL (4.40-5.60); RDW 13.5 % (11.5-14.5); WBC 5.73 X 10*3/uL (4.50-10.00)
== END | disposition home or self-care (01) ==
LOC: LABWHC1 11:08
PROVIDERS: ATTEND Family Medicine
DX: Z00.00 Encounter for general adult medical examination without abnormal findings (principal); Z12.5 Encounter for screening for malignant neoplasm of prostate; I25.118 Atherosclerotic heart disease of native coronary artery with other forms of angina pectoris; I50.22 Chronic systolic (congestive) heart failure; I11.0 Hypertensive heart disease with heart failure; E11.65 Type 2 diabetes mellitus with hyperglycemia; E11.40 Type 2 diabetes mellitus with diabetic neuropathy, unspecified; E78.2 Mixed hyperlipidemia; G20.A1 Parkinson's disease without dyskinesia, without mention of fluctuations; Z68.24 Body mass index [BMI] 24.0-24.9, adult; Z87.19 Personal history of other diseases of the digestive system
CPT/HCPCS: 36415; 80053; 80061; 84153; 84443; 85025

== ENCOUNTER 2024-10-10 22:20 | Emergency (ER) | payer MEDICARE ==
[2024-10-10 22:26] VITALS: RESP 18; TEMP 97.8
[2024-10-10] MEDS: LIDOCAINE/EPINEPHR/TETRACAINE 5 ML BOTTLE TOPICAL ONE (23:15)
--- NOTE | 2024-10-10 23:36 | ED ---
Recheck HPI - General Chief Complaint: Recheck/Abnormal Lab/Rx Stated Complaint: R Ear Bleeding -post procedure Time Seen by Provider: 10/10/24 22:27 Source: patient Mode of arrival: ambulatory - History of Present Illness Initial Comments: 74-year-old male presenting with chief complaint of bleeding from his biopsy site. Patient had a skin biopsy from his left ear earlier today. He had it cauterized in the office and dressing was applied. A few hours ago it started bleeding at home, he tried applying pressure but states that it kept leaking around the dressing and after a while decided to come to the ER. He takes no blood thinners. No injury or trauma. His dressing is still over the wound. No dizziness or weakness. - Related Data Home Medications Medication Instructions Recorded Confirmed Insulin Detemir (Levemir) [Levemir] 60 - 70 unit SQ HS 03/11/17 10/15/20 metFORMIN HCL [Metformin HCl] 500 mg PO BID 03/11/17 10/15/20 INSULIN ASPART (NovoLOG) [NovoLOG See Protocol SQ AC-TID PRN 07/20/17 10/15/20 (formulary)] Aspirin [Adult Low Dose Aspirin EC] 81 mg PO QAM 05/31/18 10/15/20 Atorvastatin [Lipitor] 40 mg PO DAILY 05/31/18 10/15/20 Metoprolol Tartrate [Lopressor] 12.5 mg PO BID 07/12/18 10/15/20 Semaglutide [Ozempic] 1 mg SQ WE 08/22/19 10/15/20 amantadine HCL [Amantadine] 100 mg PO BID 03/22/20 10/15/20 Carbidopa-Levodopa 25-100 mg 1 each PO TID 10/15/20 10/15/20 [Sinemet 25-100] Gabapentin [Neurontin] 100 mg PO HS 10/15/20 10/15/20 Omeprazole [PriLOSEC] 40 mg PO DAILY 10/15/20 10/15/20 busPIRone HCL [Buspar] 7.5 mg PO BID 10/15/20 10/15/20 Allergies Allergy/AdvReac Type Severity Reaction Status Date / Time No Known Allergies Allergy Verified 10/10/24 22:26 Review of Systems ROS Statement: Those systems with pertinent positive or pertinent negative responses have been documented in the HPI. ROS Other: All systems not noted in ROS Statement are negative. Past Medical History Past Medical History: Coronary Artery Disease (CAD), Cancer, Chest Pain / Angina, Dementia, Diabetes Mellitus, GERD/Reflux, Hearing Disorder / Deafness, Hyperlipidemia, Memory Impairment, Osteoarthritis (OA), Prostate Disorder, Syncope Additional Past Medical History / Comment(s): Crohns, Ulcerative Colitis. Skin Cancer, Melanoma. "AAA." Lt ear Sl [employer] [place] - R/T injury. Irregular heart beat. Hx Stomach ulcer. Neuropathy BLE. BPH. Parkinson's, dementia. History of Any Multi-Drug Resistant Organisms: None Reported Past Surgical History: Back Surgery, Bowel Resection, Cholecystectomy, Heart Catheterization, Heart Catheterization With Stent, Hernia Repair, Orthopedic Surgery, Prostate Surgery Additional Past Surgical History / Comment(s): 3 cardiac stents. Back surgery x7 with metal rods; Cervical surgery with metal plate, COLONOSCOPY, EGD, Melanoma removals x 2, [facility], Closure ASD 10/2016; AAA repair. Hiatal hernia repair. "Prostate shaved." Past Anesthesia/Blood Transfusion Reactions: No Reported Reaction Date of Last Stent Placement:: 08/12/16 Past Psychological History: No Psychological Hx Reported Smoking Status: Former smoker - Past Family History Father Family Medical History: Cancer Additional Family Medical History / Comment(s): LEUKEMIA- of at the age of 32 yrs. Mother Family Medical History: Cancer Additional Family Medical History / Comment(s): . Brother(s) Family Medical History: Cancer General Exam Limitations: no limitations General appearance: alert, in no apparent distress Head exam: Present: atraumatic, normocephalic Eye exam: Present: normal appearance Expanded Ear exam: Present: other (There is bleeding from the shave biopsy on the pinna) Neck exam: Present: normal inspection. Absent: meningismus Respiratory exam: Absent: respiratory distress Cardiovascular Exam: Present: regular rate Neurological exam: Present: alert, oriented X3 Psychiatric exam: Present: normal affect, normal mood Course Vital Signs 10/10/24 22:24 Temperature 97.8 F Pulse Rate 92 Respiratory 18 Rate Blood Pressure 171/82 O2 Sat by Pulse 100 Oximetry Procedures - Laceration Laceration #1 Consent Obtained: verbal consent Indication: laceration Site: other (Right ear) Size (cm): 1 Description: avulsion Depth: simple, single layer Anesthetic Used: lidocaine 1%, without epi Anesthesia Technique: local infiltration Type of Sutures: nylon Size of Sutures: 5-0 Number of Sutures: 2 Technique: simple, interrupted Patient Tolerated Procedure: well Medical Decision Making - Medical Decision Making Was pt. sent in by a medical professional or institution (ADAM Vargas, WEBLOGIC DEVELOPER, urgent care, hospital, or penitentiary...) When possible be specific @ -No Did you speak to anyone other than the patient for history (EMS, parent, family, police, friend...)? What history was obtained from this source @ -No Did you review nursing and triage notes (agree or disagree)? Why? @ -I reviewed and agree with nursing and triage notes Were old charts reviewed (outside hosp., previous admission, EMS record, old EKG, old radiological studies, urgent care reports/EKG's, penitentiary records)? Report findings @ -No old charts were reviewed Differential Diagnosis (chest pain, altered mental status, abdominal pain women, abdominal pain men, vaginal bleeding, weakness, fever, dyspnea, syncope, head ache, dizziness, GI bleed, back pain, seizure, CVA, palpatations, mental health, musculoskeletal)? @ -Differential includes wound healing complication, coagulopathy, this is not an all-inclusive list EKG interpreted by me (3pts min.). @ -As above X-rays interpreted by me (1pt min.). @ -None done CT interpreted by me (1pt min.). @ -None done U/S interpreted by me (1pt. min.). @ -None done What testing was considered but not performed or refused? (CT, X-rays, U/S, labs)? Why? @ -None What meds were considered but not given or refused? Why? @ -None Did you discuss the management of the patient with other professionals (professionals i.e. ADAM Vargas, WEBLOGIC DEVELOPER, lab, RT, psych nurse, social media intern, budget report clerk, teacher, probation and parole officer, keycase assembler)? Give summary @ -No Was smoking cessation discussed for >3mins.? @ -No Was critical care preformed (if so, how long)? @ -No Were there social determinants of health that impacted care today? How? (Homelessness, low income, unemployed, alcoholism, drug addiction, transportation, low edu. Level, literacy, decrease access to med. care, snf, rehab)? @ -No Was there de-escalation of care discussed even if they declined (Discuss DNR or withdrawal of care, Hospice)? DNR status @ -No What co-morbidities impacted this encounter? (DM, HTN, Smoking, COPD, CAD, Cancer, CVA, ARF, Chemo, Hep., AIDS, mental health diagnosis, sleep apnea, morbid obesity)? @ -None Was patient admitted / discharged? Hospital course, mention meds given and route, prescriptions, significant lab abnormalities, going to OR and other pertinent info. @ -74-year-old male presenting with chief complaint of bleeding from the skin biopsy site on his right ear. He had the biopsy done by his hoop maker helper machine earlier today. No blood thinners. No injury or trauma. The dressing is removed and there is a small area that is bleeding. 2 sutures are applied and let solution is then applied over the wound. On reassessment the bleeding is well-controlled. New dressing is applied and patient is educated on wound care and signs of infection. Follow-up with PCP. Report back to ER with any new or worsening symptoms. Discussed return parameters and answered all questions. Patient conveyed verbal understanding and agreed to the plan. I discussed this case in detail with my attending Dr. Ramirez Undiagnosed new problem with uncertain prognosis? @ -No Drug Therapy requiring intensive monitoring for toxicity (Heparin, Nitro, Insulin, Cardizem)? @ -No Were any procedures done? @ -Sutures applied to bleeding biopsy site Diagnosis/symptom? @ -Bleeding from biopsy site Acute, or Chronic, or Acute on Chronic? @ -Acute Uncomplicated (without systemic symptoms) or Complicated (systemic symptoms)? @ -Uncomplicated Side effects of treatment? @ -No Exacerbation, Progression, or Severe Exacerbation? @ -No Poses a threat to life or bodily function? How? (Chest pain, USA, CT, pneumonia, PE, COPD, DKA, ARF, appy, cholecystitis, CVA, Diverticulitis, Homicidal, Suicid al, threat to staff... and all critical care pts) @ -Unlikely Disposition Clinical Impression: Bleeding from wound Disposition: HOME SELF-CARE Condition: Good Additional Instructions: Follow-up with your hoop maker helper machine. Report back to ER with any new or worsening symptoms. Keep the area clean and covered. Sutures should be removed in about a week. Monitor for any signs of infection, including but not limited to redness, swelling, warmth, tenderness, discharge. Is patient prescribed a controlled substance at d/c from ED?: No Referrals: Lam Garcia MD [Primary Care Provider] - 1-2 days Time of Disposition: 23:36
[2024-10-10 23:52] VITALS: BP 152/81; PULSE 89
== END 2024-10-10 23:52 | disposition home or self-care (01) ==
LOC: EC 22:20
DX: R58 Hemorrhage, not elsewhere classified (principal); Z87.891 Personal history of nicotine dependence
CPT/HCPCS: 12011; 99282